=== PATIENT | female | born 1935 | race Two or more races ===

== ENCOUNTER 2016-09-15 22:55 | Emergency (ER) | payer MEDICARE, OTHER ==
[~2016-09-15] VITALS: Ht 167.6 cm; Wt 65.8 kg
[~2016-09-15 22:55] MED LIST: CLON0.5T PO; CLOP75TA2 PO; DEXL60CA3 PO; DILT120C2 PO; FLUT1DIS27 IH; HYDR-4077 PO; MEGE20TA PO
[2016-09-15] MEDS ORDERED: hydrALAZINE HCL 25 MG TABLET PO ONE (23:00)
[2016-09-15] MEDS ORDERED: hydrALAZINE HCL 25 MG TABLET ONE (23:11)
--- NOTE | 2016-09-16 00:25 | NUR ---
Patient discharged to home in stable conditon. Written and verbal after care instructions given. Patient verbalizes understanding of instructions.
[2016-09-16 00:30] VITALS: BP 158/75
== END 2016-09-16 00:25 | disposition home or self-care (01) ==
LOC: ER 22:55
DX: I10 Essential (primary) hypertension (principal); R04.0 Epistaxis; I48.91 Unspecified atrial fibrillation; F41.9 Anxiety disorder, unspecified; K58.9 Irritable bowel syndrome, unspecified
CPT/HCPCS: 99283; A4663 ×2

== ENCOUNTER 2017-02-26 13:59 | Inpatient (IN) | payer MEDICARE, OTHER ==
[~2017-02-26] VITALS: Ht 162.6 cm; Wt 54.4 kg
[~2017-02-26 13:59] MED LIST changes: +CLOP75TA15 PO; -CLOP75TA2 PO
[2017-02-26] MEDS ORDERED: MECL-102 PO (14:19)
[2017-02-26] MEDS ORDERED: GABA-532 PO (14:19)
[2017-02-26] MEDS ORDERED: MONT10TA22 PO (14:19)
[2017-02-26] MEDS ORDERED: HYDR-4077 PO (14:19)
[2017-02-26] MEDS ORDERED: MELO-105 PO (14:19)
[2017-02-26] MEDS ORDERED: IV NORMAL SALINE 1000 ML BAG IV ONE (14:30)
[2017-02-26 14:42] LABS: BASOPHILS % (AUTO) 0.4 % (0.0-2.0); EOSINOPHILS % (AUTO) 0.1 % (0.0-7.0); HEMOGLOBIN 14.8 G/DL (12.0-16.0); LYMPHOCYTES # (AUTO) 0.8 K/UL (0.8-4.8); LYMPHOCYTES % (AUTO) 6.6 % (20.5-51.5); MEAN CORPUSCULAR HEMOGLOBIN 28.3 UUG (27.0-31.0); MEAN CORPUSCULAR HGB CONC 33 g/dL (32.0-37.0); MEAN CORPUSCULAR VOLUME 85.9 FL (81.0-99.0); MONOCYTES # (AUTO) 0.9 K/UL (0.1-1.30); MONOCYTES % (AUTO) 7.8 % (0.0-11.0); NEUTROPHILS # (AUTO) 10.2 K/UL (1.8-8.9); NEUTROPHILS % (AUTO) 85.1 % (38.5-71.5); PLATELET COUNT (AUTO) 252 K/UL (150-450); RED BLOOD CELL COUNT(AUTO) 5.24 MIL/UL (4.2-5.4); WHITE BLOOD COUNT (AUTO) 11.9 K/UL (4.0-11.2)
[2017-02-26 14:50] LABS: CARBON DIOXIDE 21 mmol/L (21-32); CHLORIDE 101 mmol/L (98-107); CREATININE 0.8 mg/dL (0.6-1.3); GLUCOSE 118 mg/dL (74-106); POTASSIUM 3.5 mmol/L (3.5-5.1); UREA NITROGEN, BLOOD 10 mg/dL (7-18)
[2017-02-26 14:59] LABS: ALANINE AMINOTRANSFERASE 17 U/L (14-59); ALKALINE PHOSPHATASE 82 U/L (50-136); ASPARTATE AMINOTRANSFERASE 9 U/L (15-37); BILIRUBIN,DIRECT 0.2 mg/dL (0.0-0.2); BILIRUBIN,TOTAL 0.6 mg/dL (0.2-1.0); LIPASE 83 U/L (73-393); TOTAL PROTEIN, SERUM 7.9 g/dL (6.4-8.2)
--- NOTE | 2017-02-26 15:11 | NUR ---
Patient is resting comfortably in bed with eyes closed. Family is at bedside, no acute change in condition seen, NAD
--- NOTE | 2017-02-26 15:17 | NUR ---
Patient's family wants the patient admitted.
--- NOTE | 2017-02-26 15:39 | NUR ---
Patient ambulated to bathroom with minimal assistance. Per patient, ..."I live alone. I do not have anyone at home." [facility]
--- NOTE | 2017-02-26 15:48 | NUR ---
Clean catch-urine was requested from patient. Patient says that she forgot. We will collect again when the "urge to void" comes back.
[2017-02-26] MEDS ORDERED: ALBU6.7H PO (16:26)
[2017-02-26] MEDS ORDERED: ALBU1.257 INH (16:26)
[2017-02-26] MEDS ORDERED: FLUT1DIS27 PO (16:26)
[2017-02-26 16:43] VITALS: BP 169/62
[2017-02-26] MEDS ORDERED: MORPHINE SULFATE 2 MG/1 ML DISP.SYRIN IV PRN (18:45)
[2017-02-26] MEDS ORDERED: MECLIZINE HCL 25 MG TABLET PO PRN (18:45)
[2017-02-26] MEDS ORDERED: ALBUTEROL SULFATE 2.5 MG/3 ML NEBU NEB PRN (18:45)
[2017-02-26] MEDS ORDERED: ONDANSETRON 4 MG/2 ML VIAL IV PRN (18:45)
[2017-02-26] MEDS: hydrALAZINE HCL 50 MG TABLET PO SCH (18:54)
[2017-02-26] MEDS: CEFTRIAXONE 1 G in IV DEXTROSE 5% 50 ML IV SCH (19:46)
[2017-02-26 20:04] VITALS: BP 164/57
[2017-02-26] MEDS: AZITHROMYCIN IV 500 MG in IV DEXTROSE 5% 250 ML IV SCH (20:11)
--- NOTE | 2017-02-26 20:30 | NUR ---
Patient has temp. of 101.2 F, Dr. Hardin notified. IV antibiotic infusion held temporarily for a blood culture test per MD Assisted to the bathroom & patient voided, urine sample sent to the lab. then IV antibiotic infusion resumed. Cooling measures applied. Placed on library monitor- patient is NSR.
[2017-02-26] MEDS ORDERED: FLUTICASONE/SALMETEROL 100/50 1 INH DISK.W.DEV INH SCH (21:00)
--- NOTE | 2017-02-26 21:00 | NUR ---
Tylenol 650 mg po given.
[2017-02-26] MEDS: ACETAMINOPHEN 325 MG TABLET PO PRN (21:18)
[2017-02-26 22:57] LABS: *BILIRUBIN,URIN NEGATIVE (NEGATIVE); *BLOOD, URINE NEGATIVE (NEGATIVE); *CLARITY,URINE CLEAR (CLEAR); *COLOR,URINE YELLOW (YELLOW); *KETONES,URINE TRACE (NEGATIVE); *PROTEIN,URINE NEGATIVE (NEGATIVE); LEUKOCYTE ESTERASE ,URINE NEGATIVE (NEGATIVE); NITRITE, URINE NEGATIVE (NEGATIVE); UGLUCOSE NEGATIVE (NEGATIVE)
[2017-02-26 23:03] LABS: BACTERIA,URINE FEW /HPF (NONE SEEN); RBC,URINE 0-3 /HPF (0-3); SQUAMOUS EPITHELIAL CELL,UR FEW /HPF (NONE SEEN); WBC,URINE NONE SEEN /HPF (0-3)
[2017-02-27 00:27] VITALS: BP 137/43
--- NOTE | 2017-02-27 00:30 | NUR ---
Patient asleep, afebrile at this time.
[2017-02-27] MEDS ORDERED: FUROSEMIDE 40 MG/4 ML VIAL IV SCH (03:00)
[2017-02-27 04:00] VITALS: BP 147/45
[2017-02-27] MEDS: ACETAMINOPHEN 325 MG TABLET PO PRN (05:43)
[2017-02-27] MEDS: PANTOPRAZOLE SODIUM 40 MG TABLET.DR PO SCH (05:43)
--- NOTE | 2017-02-27 06:41 | NUR ---
Patient tolerated IV antibiotics, slightly febrile 99.3 F. Tylenol 650 mg po given, Ice pack provided. Tele NSR, no acute resp. distress.
[2017-02-27 07:40] LABS: BASOPHILS % (AUTO) 0.3 % (0.0-2.0); EOSINOPHILS # (AUTO) 0.1 K/uL (0.0-0.7); EOSINOPHILS % (AUTO) 1.1 % (0.0-7.0); HEMATOCRIT 39.8 % (37-47); HEMOGLOBIN 13.4 G/DL (12.0-16.0); LYMPHOCYTES # (AUTO) 1.2 K/UL (0.8-4.8); LYMPHOCYTES % (AUTO) 10.8 % (20.5-51.5); MEAN CORPUSCULAR HEMOGLOBIN 28.8 UUG (27.0-31.0); MEAN CORPUSCULAR HGB CONC 34 g/dL (32.0-37.0); MEAN CORPUSCULAR VOLUME 85.5 FL (81.0-99.0); MONOCYTES # (AUTO) 1.2 K/UL (0.1-1.30); MONOCYTES % (AUTO) 10.4 % (0.0-11.0); NEUTROPHILS # (AUTO) 8.7 K/UL (1.8-8.9); NEUTROPHILS % (AUTO) 77.4 % (38.5-71.5); PLATELET COUNT (AUTO) 228 K/UL (150-450); RED BLOOD CELL COUNT(AUTO) 4.66 MIL/UL (4.2-5.4); WHITE BLOOD COUNT (AUTO) 11.2 K/UL (4.0-11.2)
[2017-02-27] MEDS: GABAPENTIN 100 MG CAPSULE PO SCH ×2 (08:18→16:34)
[2017-02-27] MEDS: DILTIAZEM HCL CD 120 MG CAP.SR.24H PO SCH (08:19)
[2017-02-27] MEDS: MONTELUKAST SODIUM 10 MG TABLET PO SCH (08:19)
[2017-02-27] MEDS: MELOXICAM 7.5 MG TABLET PO SCH (08:19)
[2017-02-27] MEDS: MEGESTROL ACETATE 20 MG TABLET PO SCH ×2 (08:19→17:00)
[2017-02-27] MEDS: CLOPIDOGREL 75 MG TABLET PO SCH (08:19)
[2017-02-27] MEDS: hydrALAZINE HCL 50 MG TABLET PO SCH ×3 (08:20→16:36)
[2017-02-27] MEDS: FLUTICASONE/VILANTEROL 1 EACH BLST.W.DEV INH SCH (09:00)
[2017-02-27 09:08] LABS: THYROID STIMULATING HORMONE 1.393 mIU/mL (0.358-3.740)
[2017-02-27 09:28] LABS: ALANINE AMINOTRANSFERASE 14 U/L (14-59); ALKALINE PHOSPHATASE 66 U/L (50-136); ASPARTATE AMINOTRANSFERASE 13 U/L (15-37); BILIRUBIN,TOTAL 0.5 mg/dL (0.2-1.0); CARBON DIOXIDE 24 mmol/L (21-32); CHLORIDE 104 mmol/L (98-107); CHOLESTEROL 123 mg/dL (<200); CREATININE 0.8 mg/dL (0.6-1.3); GLUCOSE 97 mg/dL (74-106); HDL CHOLESTEROL 40 mg/dL (40-60); MAGNESIUM 1.9 mg/dL (1.8-2.4); POTASSIUM 3.3 mmol/L (3.5-5.1); TOTAL PROTEIN, SERUM 6.6 g/dL (6.4-8.2); TRIGLYCERIDES 54 MG/DL (30-150); UREA NITROGEN, BLOOD 8 mg/dL (7-18)
[2017-02-27] MEDS ORDERED: POTASSIUM CHLORIDE 20 MEQ TAB.PRT.SR PO ONE (10:00)
[2017-02-27 11:41] VITALS: BP 148/49
--- NOTE | 2017-02-27 12:23 | NUR ---
pt seen on rounding. pt is afebrile. pt has high blood pressure. pt is awake and alert. no loc changes. chest xray shows she has diffuse interstitial lung disease. pt is on monitor sinus rhythm running on the 70s. family states that she has history of anorexia as stated by the family. pt had a potassium of 3.3. pt given 40 meq of potassium. will continue to monitor for signs of fever.
[2017-02-27 13:03] LABS: BAND % (MANUAL) 12 % (0-10); EOSINOPHILS % (MANUAL) 1 % (0-8); LYMPHOCYTES % (MANUAL) 11 % (20-40); MONOCYTES % (MANUAL) 12 % (2-10); NEUTROPHILS % (MANUAL) 64 % (42-75)
--- NOTE | 2017-02-27 15:14 | NUR ---
pt not given breo because pharmacy has no supply of breo. [facility] pharmacy is aware. will follow up
[2017-02-27 15:15] VITALS: BP 132/55
--- NOTE | 2017-02-27 19:10 | NUR ---
pt stable thorughout the day. bp slightly elevated but temperature wnl. pt voided and had bm. family states tht pt has past history of anorexia and may need psych consult. no new injuries. will endorse to overnight associate nurse.
[2017-02-27] MEDS: CEFTRIAXONE 1 G in IV DEXTROSE 5% 50 ML IV SCH (19:57)
[2017-02-27 20:00] VITALS: BP 154/49
--- NOTE | 2017-02-27 20:00 | NUR ---
Noted to have slight elevated Temp. of 99.9'F. Non-pharmacological interventions provided.
[2017-02-27] MEDS ORDERED: ZOLPIDEM 5 MG TABLET PO SCH (21:00)
--- NOTE | 2017-02-27 21:00 | NUR ---
Noted temp. of 99.3'F. Will continue to monitor the patient.
[2017-02-27] MEDS: AZITHROMYCIN IV 500 MG in IV DEXTROSE 5% 250 ML IV SCH (22:36)
[2017-02-28] VITALS: BP 145/54
[2017-02-28 04:00] VITALS: BP 164/59
[2017-02-28] MEDS: hydrALAZINE HCL 25 MG TABLET PO PRN ×2 (04:52→18:15)
[2017-02-28] MEDS: PANTOPRAZOLE SODIUM 40 MG TABLET.DR PO SCH (06:17)
--- NOTE | 2017-02-28 06:46 | NUR ---
Vital signs checked noted to have elevated BP 164/59. Hydralazine given, BP rechecked 149/50. Will continue to monitor.
--- NOTE | 2017-02-28 07:10 | NUR ---
Pt report received at bedside. Pt reports sleeping comfortably last night. White board updated. No distress or pain noted at this time. All safety and comfort measures implemented. Will continue to monitor.
[2017-02-28] MEDS: MELOXICAM 7.5 MG TABLET PO SCH (08:52)
[2017-02-28] MEDS: MONTELUKAST SODIUM 10 MG TABLET PO SCH (08:52)
[2017-02-28] MEDS: GABAPENTIN 100 MG CAPSULE PO SCH ×2 (08:52→16:50)
[2017-02-28] MEDS: CLOPIDOGREL 75 MG TABLET PO SCH (08:52)
[2017-02-28] MEDS: MEGESTROL ACETATE 20 MG TABLET PO SCH ×2 (08:53→16:50)
[2017-02-28] MEDS: hydrALAZINE HCL 50 MG TABLET PO SCH ×3 (08:53→16:50)
[2017-02-28] MEDS: DILTIAZEM HCL CD 120 MG CAP.SR.24H PO SCH (08:54)
[2017-02-28] MEDS: FLUTICASONE/VILANTEROL 1 EACH BLST.W.DEV INH SCH (08:57)
--- NOTE | 2017-02-28 09:07 | NUR ---
Pt sitting comfortably in bed, stating finished with breakfast. Pt compliant with all routine morning medication administration. [facility] Tech arrived to transfer Pt down for CT head scan with contrast as ordered. Stable SR checked, Pt sent down with monitor at this time.
[2017-02-28 11:21] VITALS: BP 155/52
[2017-02-28 15:37] VITALS: BP 112/70
--- NOTE | 2017-02-28 18:06 | NUR ---
Pt sitting comfortably in bed. Pt has been compliant with all routine medication administrations. V/S stable, Pt denies any c/o pain or difficulty breathing/SOB at this time. No distress noted. Call light within reach, and all comfort measures met. Will continue to monitor progress and endorse maintenance technician 2nd shift.
--- NOTE | 2017-02-28 18:18 | NUR ---
Pt reassessed, V/S taken to be 159/61, 72 pulse. Blood pressure medication, Apresolin administered as ordered PRN. Will endorse to manufacturing shift supervisor and continue to monitor Pt status.
[2017-02-28] MEDS: CEFTRIAXONE 1 G in IV DEXTROSE 5% 50 ML IV SCH (20:02)
[2017-02-28 20:21] VITALS: BP 152/52
[2017-02-28] MEDS: AZITHROMYCIN IV 500 MG in IV DEXTROSE 5% 250 ML IV SCH (20:35)
--- NOTE | 2017-02-28 22:45 | NUR ---
PATIENT REQUESTED FOR CLONAZEPAM 0.5MG, STATED SHE HAS BEEN TAKING IT FORM 25 YEARS BEFORE BEDTIME. DAUGHTER AT BEDSIDE. MD NOTIFIED.
--- NOTE | 2017-02-28 23:00 | NUR ---
RECEIVED DR. COOK'S ORDER TO RE START CLONAZEPAM 0.5MG HS PO. NEW ORDERS RECEIVED, READ BACK, CARRIED OUT.
[2017-02-28] MEDS: CLONAZEPAM 0.5 MG TABLET PO SCH (23:13)
[2017-02-28] MEDS ORDERED: CLONAZEPAM 0.5 MG TABLET ONE (23:25)
[2017-03-01 00:01] VITALS: BP 182/67
--- NOTE | 2017-03-01 00:55 | NUR ---
PT NOTED TO HAVE ELEVATED BP 182/67 HR 75. PT IS ALERT, IN NO ACUTE DISTRESS, NO C/O OF CHEST PAIN, SOB, HEADACHE.
[2017-03-01] MEDS: hydrALAZINE HCL 25 MG TABLET PO PRN (01:06)
--- NOTE | 2017-03-01 01:10 | NUR ---
ADMINISTERED APRESOLINE 25MG PRN FOR ELEVATED BP. WILL CONTINUE TO MONITOR.
--- NOTE | 2017-03-01 03:00 | NUR ---
REASSESED PT'S BP 165/65 HR 70. PT IS ALERT, IN NO ACUTE DISTRESS, NO C/O OF CHEST PAIN. WILL CONTINUE TO MONITOR.
[2017-03-01 04:00] VITALS: BP 155/56
--- NOTE | 2017-03-01 06:00 | NUR ---
PT SLEPT INTERMITTENTLY, IN NO ACUTE DISTRESS. PT IS ANXIOUS, WORRIED ABOUT HER 2 CHILDREN. PT IS ON TELE SR, NO C/O OF CHEST PAIN OR SOB. IV ANTIBIOTIC ADMINISTERED ORDERED, NO ADVERSE REACTION NOTED. ASSISTED WITH TOILETING NEEDS. BED ALARM ON, CALL LIGHT WITHIN REACH. WILL CONTINUE TO MONITOR.
--- NOTE | 2017-03-01 06:00 | NUR ---
PT'S BP DOWN TO 155/56 HR 68. PT IS IN NO ACUTE DISTRESS. WILL CONTINUE TO MONITOR. WILL ENDORSE TO ONCOMING SHIFT REGARDING PT'S BP READINGS.
[2017-03-01] MEDS: PANTOPRAZOLE SODIUM 40 MG TABLET.DR PO SCH (06:37)
[2017-03-01 06:56] LABS: BASOPHILS # (AUTO) 0.1 K/uL (0.0-8.0); BASOPHILS % (AUTO) 0.8 % (0.0-2.0); EOSINOPHILS # (AUTO) 0.3 K/uL (0.0-0.7); EOSINOPHILS % (AUTO) 3.4 % (0.0-7.0); HEMOGLOBIN 13.1 g/dL (10.9-14.3); LYMPHOCYTES # (AUTO) 1.7 K/uL (20.0-40.0); LYMPHOCYTES % (AUTO) 19.2 % (20.5-51.5); MEAN CORPUSCULAR HEMOGLOBIN 29.6 uug (24.7-32.8); MEAN CORPUSCULAR HGB CONC 34 g/dL (32.3-35.6); MEAN CORPUSCULAR VOLUME 86.1 fL (75.5-95.3); MONOCYTES # (AUTO) 0.9 K/uL (2.0-10.0); MONOCYTES % (AUTO) 10.4 % (0.0-11.0); NEUTROPHILS # (AUTO) 5.7 K/uL (1.8-8.9); NEUTROPHILS % (AUTO) 66.2 % (38.5-71.5); PLATELET COUNT (AUTO) 258 K/uL (179-408); RED BLOOD CELL COUNT(AUTO) 4.41 MIL/uL (3.63-4.92); WHITE BLOOD COUNT (AUTO) 8.6 K/uL (3.8-11.8)
[2017-03-01 07:28] LABS: ALANINE AMINOTRANSFERASE 13 U/L (14-59); ALKALINE PHOSPHATASE 68 U/L (50-136); ASPARTATE AMINOTRANSFERASE 13 U/L (15-37); BILIRUBIN,TOTAL 0.2 mg/dL (0.2-1.0); CARBON DIOXIDE 25 mmol/L (21-32); CHLORIDE 104 mmol/L (98-107); CREATININE 0.8 mg/dL (0.6-1.3); GLUCOSE 98 mg/dL (74-106); MAGNESIUM 1.9 mg/dL (1.8-2.4); PHOSPHOROUS 3.7 mg/dL (2.5-4.9); POTASSIUM 3.5 mmol/L (3.5-5.1); TOTAL PROTEIN, SERUM 6.7 g/dL (6.4-8.2); UREA NITROGEN, BLOOD 17 mg/dL (7-18)
--- NOTE | 2017-03-01 08:00 | NUR ---
Awake, alert, oriented x 4. On moderate high back rest. Room air with O2 sat of 97%, no SOB noted. Anxious, discussed plan of care, reassured
[2017-03-01 09:52] LABS: ABG BASE EXCESS -0.4 mmol/L; ABG HCO3 22.2 mmol/L; ABG PCO2 30.6 mmHg (35.0-45.0); ABG PH 7.479 (7.350-7.450); ABG PO2 83.2 mmHg (75.0-100.0); ABG SITE RIGHT RADIAL; ABG TOTAL HEMOGLOBIN 13.2 G/dL (12.0-16.0); COHb 0.7 % (0.5-1.5); MetHb 0.3 % (0.0-1.5); O2Hb 95.9 % (94.0-97.0)
[2017-03-01] MEDS: CLOPIDOGREL 75 MG TABLET PO SCH (10:02)
[2017-03-01] MEDS: MEGESTROL ACETATE 20 MG TABLET PO SCH ×2 (10:02→17:12)
[2017-03-01] MEDS: MELOXICAM 7.5 MG TABLET PO SCH (10:02)
[2017-03-01] MEDS: GABAPENTIN 100 MG CAPSULE PO SCH ×2 (10:02→17:13)
[2017-03-01] MEDS: MONTELUKAST SODIUM 10 MG TABLET PO SCH (10:02)
[2017-03-01] MEDS: FLUTICASONE/VILANTEROL 1 EACH BLST.W.DEV INH SCH (10:02)
[2017-03-01] MEDS: DILTIAZEM HCL CD 120 MG CAP.SR.24H PO SCH (10:03)
[2017-03-01] MEDS: hydrALAZINE HCL 50 MG TABLET PO SCH ×3 (10:04→17:12)
[2017-03-01 11:14] VITALS: BP 171/60
--- NOTE | 2017-03-01 13:00 | NUR ---
Still with elevated BP, due Hydralazine po given
[2017-03-01 15:12] VITALS: BP 153/60
--- NOTE | 2017-03-01 18:37 | NUR ---
Kept comfortable, not in distress
[2017-03-01] MEDS: CEFTRIAXONE 1 G in IV DEXTROSE 5% 50 ML IV SCH (18:49)
[2017-03-01 20:00] VITALS: BP 147/53
[2017-03-01] MEDS: AZITHROMYCIN IV 500 MG in IV DEXTROSE 5% 250 ML IV SCH (20:22)
[2017-03-01] MEDS: CLONAZEPAM 0.5 MG TABLET PO SCH (20:22)
--- NOTE | 2017-03-01 21:45 | NUR ---
SPOKE WITH ROBERT FROM MENTAL HEALTH, FOLLOW UP REGARDING PATIENT'S PSYCH EVAL FOR ANOREXIA AND DEPRESSION. MENTAL HEALTH TO NOTIFY MD. WILL FOLLOW UP.
[2017-03-02 04:55] VITALS: BP 135/50
[2017-03-02] MEDS: PANTOPRAZOLE SODIUM 40 MG TABLET.DR PO SCH (06:01)
[2017-03-02 06:30] LABS: BASOPHILS # (AUTO) 0.1 K/uL (0.0-8.0); BASOPHILS % (AUTO) 0.8 % (0.0-2.0); EOSINOPHILS # (AUTO) 0.3 K/uL (0.0-0.7); EOSINOPHILS % (AUTO) 4.4 % (0.0-7.0); HEMATOCRIT 38.1 % (31.2-41.9); HEMOGLOBIN 13.2 g/dL (10.9-14.3); LYMPHOCYTES # (AUTO) 1.6 K/uL (20.0-40.0); LYMPHOCYTES % (AUTO) 24.2 % (20.5-51.5); MEAN CORPUSCULAR HEMOGLOBIN 29.6 uug (24.7-32.8); MEAN CORPUSCULAR HGB CONC 35 g/dL (32.3-35.6); MEAN CORPUSCULAR VOLUME 85.7 fL (75.5-95.3); MONOCYTES # (AUTO) 0.7 K/uL (2.0-10.0); MONOCYTES % (AUTO) 10.9 % (0.0-11.0); NEUTROPHILS % (AUTO) 59.7 % (38.5-71.5); PLATELET COUNT (AUTO) 274 K/uL (179-408); RED BLOOD CELL COUNT(AUTO) 4.45 MIL/uL (3.63-4.92); WHITE BLOOD COUNT (AUTO) 6.8 K/uL (3.8-11.8)
--- NOTE | 2017-03-02 06:30 | NUR ---
PT SLEPT INTERMITTENTLY. VS STABLE, NO SIGNIFICANT CHANGE OF CONDITION THROUGHOUT THE SHIFT. WILL ENDORSE TO ONCOMING SHIFT RN REGARDING F/U PSYCH EVAL.
[2017-03-02 07:01] LABS: CHLORIDE 104 mmol/L (98-107); CREATININE 0.8 mg/dL (0.6-1.3); GLUCOSE 103 mg/dL (74-106); PHOSPHOROUS 3.8 mg/dL (2.5-4.9); POTASSIUM 3.6 mmol/L (3.5-5.1); UREA NITROGEN, BLOOD 15 mg/dL (7-18)
--- NOTE | 2017-03-02 07:30 | NUR ---
PT received in bed Awake, alert, oriented x 4. Room air with O2 sat of 97%, no SOB noted. Anxious, discussed plan of care, reassured call light with in reach
[2017-03-02] MEDS: MELOXICAM 7.5 MG TABLET PO SCH (08:27)
[2017-03-02] MEDS: CLOPIDOGREL 75 MG TABLET PO SCH (08:27)
[2017-03-02] MEDS: MEGESTROL ACETATE 20 MG TABLET PO SCH ×2 (08:27→18:17)
[2017-03-02] MEDS: MONTELUKAST SODIUM 10 MG TABLET PO SCH (08:27)
[2017-03-02] MEDS: GABAPENTIN 100 MG CAPSULE PO SCH ×2 (08:27→18:17)
[2017-03-02] MEDS: hydrALAZINE HCL 50 MG TABLET PO SCH ×3 (08:27→18:18)
[2017-03-02] MEDS: FLUTICASONE/VILANTEROL 1 EACH BLST.W.DEV INH SCH (08:28)
[2017-03-02] MEDS: DILTIAZEM HCL CD 120 MG CAP.SR.24H PO SCH (08:28)
--- NOTE | 2017-03-02 09:45 | NUR ---
took over care, resting in bed, denies of pain, safety measures maintained, call light within reach
[2017-03-02 11:05] VITALS: BP 147/48
--- NOTE | 2017-03-02 12:00 | NUR ---
quiet but holds conversation when talked to, needs attended, call light within reach
[2017-03-02 15:09] VITALS: BP 135/54
[2017-03-02] MEDS: CEFTRIAXONE 1 G in IV DEXTROSE 5% 50 ML IV SCH (18:17)
--- NOTE | 2017-03-02 18:45 | NUR ---
s Addendum: 03/02/17 at 1851 by JOHN PADRON RN sitter in the room, all needs attended and met Addendum: 03/02/17 at 1852 by JOHN PADRON RN error- wrong entry
--- NOTE | 2017-03-02 18:46 | NUR ---
resting in bed, denies of pain, all needs attended and met, call light within reach
[2017-03-02 20:00] VITALS: BP 142/51
[2017-03-02] MEDS ORDERED: AZITHROMYCIN 250 MG TABLET PO SCH (20:00)
--- NOTE | 2017-03-02 20:00 | NUR ---
Received pt on bed awake, alert and oriented x4. Able to make needs known. Pleasant, calm and cooperative to care. No acute distress noted. No complaints of pain or discomfort at this time. Breathing even and unlabored with normal respirations. Call light within reach. All needs attended. Will continue to monitor.
[2017-03-02] MEDS: CLONAZEPAM 0.5 MG TABLET PO SCH (20:26)
[2017-03-03 05:24] VITALS: BP 132/54
--- NOTE | 2017-03-03 05:50 | NUR ---
Pt slept comfortably throughout the shift. No s/s of distress. Denies pain. No SOB noted. Vital signs stable. All needs attended.
[2017-03-03] MEDS: PANTOPRAZOLE SODIUM 40 MG TABLET.DR PO SCH (06:07)
--- NOTE | 2017-03-03 08:00 | NUR ---
awake alert and oriented, denies of pain, explained plan of care- informed of plan to ARU- states "ok but no half-way", expressed dislike of being in a jail facility. safety measures maintained, call light within reach, needs attended
[2017-03-03] MEDS: hydrALAZINE HCL 50 MG TABLET PO SCH ×3 (08:16→17:12)
[2017-03-03] MEDS: GABAPENTIN 100 MG CAPSULE PO SCH ×2 (08:17→17:12)
[2017-03-03] MEDS: MELOXICAM 7.5 MG TABLET PO SCH (08:17)
[2017-03-03] MEDS: MEGESTROL ACETATE 20 MG TABLET PO SCH ×2 (08:17→17:12)
[2017-03-03] MEDS: DILTIAZEM HCL CD 120 MG CAP.SR.24H PO SCH (08:17)
[2017-03-03] MEDS: CLOPIDOGREL 75 MG TABLET PO SCH (08:17)
[2017-03-03] MEDS: MONTELUKAST SODIUM 10 MG TABLET PO SCH (08:17)
[2017-03-03] MEDS: FLUTICASONE/VILANTEROL 1 EACH BLST.W.DEV INH SCH (08:18)
[2017-03-03 11:02] VITALS: BP 139/52
--- NOTE | 2017-03-03 12:00 | NUR ---
ambulates to [facility] standby assitance- tolerating well, denies of pain.
[2017-03-03 15:10] VITALS: BP 162/52
--- NOTE | 2017-03-03 15:30 | NUR ---
informed case management that pt doesn't want to go to [facility] facility- would rather go home if not going to ARU
[2017-03-03 17:12] VITALS: BP 142/52
--- NOTE | 2017-03-03 17:47 | NUR ---
seen by Dr Murrell-spoke to pt at length
[2017-03-03] MEDS: CEFTRIAXONE 1 G in IV DEXTROSE 5% 50 ML IV SCH (18:17)
--- NOTE | 2017-03-03 18:47 | NUR ---
Dr Hardin spoke to daughter- pt to be d/c to [facility]
[2017-03-03] MEDS ORDERED: ALBU2.5V7 NEB (19:30)
[2017-03-03] MEDS ORDERED: ACET325T53 PO (19:30)
[2017-03-03] MEDS ORDERED: MIRT15TA PO (19:30)
[2017-03-03] MEDS ORDERED: CLON0.5T4 PO (19:30)
[2017-03-03] MEDS ORDERED: ACID1TAB4 PO (19:30)
[2017-03-03] MEDS ORDERED: MULT1TAB73 PO (19:30)
[2017-03-03] MEDS ORDERED: LEVO500T2 PO (19:30)
[2017-03-03] MEDS ORDERED: PANT40TA2 PO (19:30)
[2017-03-03] MEDS ORDERED: MONT10TA22 PO (19:30)
--- NOTE | 2017-03-03 20:04 | NUR ---
Patient discharged to [facility]. Patient in stable condition. No signs/symptoms of distress. IV DCed. Discharge papers signed by patient. ID band taken off of patient. No falls noted.
== END 2017-03-03 20:24 | DRG 871 ==
LOC: ER 14:02 → TELE 16:11 → MED 03-01 11:22
PROVIDERS: ADMIT Internal Medicine; ATTEND Internal Medicine
DX: A41.9 Sepsis, unspecified organism (principal); J18.0 Bronchopneumonia, unspecified organism; E44.0 Moderate protein-calorie malnutrition; J91.8 Pleural effusion in other conditions classified elsewhere; D68.59 Other primary thrombophilia; J21.9 Acute bronchiolitis, unspecified; H66.93 Otitis media, unspecified, bilateral; A48.8 Other specified bacterial diseases; H70.13 Chronic mastoiditis, bilateral; I48.0 Paroxysmal atrial fibrillation; E78.5 Hyperlipidemia, unspecified; K58.9 Irritable bowel syndrome, unspecified; I10 Essential (primary) hypertension; F32.9 Major depressive disorder, single episode, unspecified; Z68.20 Body mass index [BMI] 20.0-20.9, adult; F41.9 Anxiety disorder, unspecified; Z74.09 Other reduced mobility; Z79.02 Long term (current) use of antithrombotics/antiplatelets; Z79.51 Long term (current) use of inhaled steroids; Z88.8 Allergy status to other drugs, medicaments and biological substances; Z91.09 Other allergy status, other than to drugs and biological substances; Z91.81 History of falling; J45.909 Unspecified asthma, uncomplicated; E87.6 Hypokalemia; H66.90 Otitis media, unspecified, unspecified ear
CPT/HCPCS: 36415; 36600; 70030-TC; 70450; 71010; 71250; 83690; 83735; 84100; 84443; 85025; 87040; 87086; 93005; 93307; 97110; 97116; 97530; A4663; J0456; J0696; J2270; J7030; J7050; J7060; J8597; Q0144

== ENCOUNTER 2017-03-15 15:56 | Inpatient (IN) | payer MEDICARE, OTHER ==
[~2017-03-15] VITALS: Ht 165.1 cm; Wt 58.7 kg
[~2017-03-15 15:56] MED LIST changes: +ACET325T53 PO; +ACID1TAB4 PO; +ALBU2.5V7 NEB; -CLON0.5T PO; +CLON0.5T4 PO; -DEXL60CA3 PO; -FLUT1DIS27 IH; +FLUT1DIS27 PO; +GABA-532 PO; +LEVO500T2 PO; +MECL-102 PO; +MELO-105 PO; +MIRT15TA PO; +MONT10TA22 PO; +MULT1TAB73 PO; +PANT40TA2 PO
--- NOTE | 2017-03-15 16:03 | NUR ---
DR MONZON AT THE BEDSIDE FOR EVAL AND EXAM.
[2017-03-15] MEDS ORDERED: ONDANSETRON 4 MG/2 ML VIAL IV ONE (16:15)
[2017-03-15] MEDS ORDERED: IV NORMAL SALINE 1000 ML BAG IV ONE (16:15)
--- NOTE | 2017-03-15 16:25 | NUR ---
Pt refused F/C, MD aware.
[2017-03-15 16:28] LABS: BASOPHILS # (AUTO) 0.1 K/uL (0.0-8.0); BASOPHILS % (AUTO) 0.6 % (0.0-2.0); EOSINOPHILS % (AUTO) 0.2 % (0.0-7.0); HEMOGLOBIN 13.1 G/DL (12.0-16.0); LYMPHOCYTES % (AUTO) 6.6 % (20.5-51.5); MEAN CORPUSCULAR HEMOGLOBIN 27.2 UUG (27.0-31.0); MEAN CORPUSCULAR HGB CONC 32 g/dL (32.0-37.0); MEAN CORPUSCULAR VOLUME 85.4 FL (81.0-99.0); MONOCYTES # (AUTO) 0.7 K/UL (0.1-1.30); MONOCYTES % (AUTO) 4.3 % (0.0-11.0); NEUTROPHILS # (AUTO) 14.1 K/UL (1.8-8.9); NEUTROPHILS % (AUTO) 88.3 % (38.5-71.5); PLATELET COUNT (AUTO) 336 K/UL (150-450); WHITE BLOOD COUNT (AUTO) 15.9 K/UL (4.0-11.2)
[2017-03-15 16:29] LABS: CARBON DIOXIDE 22 mmol/L (21-32); CHLORIDE 102 mmol/L (98-107); CREATININE 0.9 mg/dL (0.6-1.3); GLUCOSE 106 mg/dL (74-106); POTASSIUM 3.9 mmol/L (3.5-5.1); UREA NITROGEN, BLOOD 12 mg/dL (7-18)
[2017-03-15] MEDS ORDERED: ONDANSETRON 4 MG/2 ML VIAL ONE (16:30)
[2017-03-15 16:34] LABS: ALANINE AMINOTRANSFERASE 20 U/L (14-59); ALKALINE PHOSPHATASE 78 U/L (50-136); ASPARTATE AMINOTRANSFERASE 16 U/L (15-37); BILIRUBIN,DIRECT 0.1 mg/dL (0.0-0.2); BILIRUBIN,TOTAL 0.4 mg/dL (0.2-1.0); LIPASE 110 U/L (73-393); TOTAL PROTEIN, SERUM 7.4 g/dL (6.4-8.2)
[2017-03-15 16:36] LABS: *BILIRUBIN,URIN NEGATIVE (NEGATIVE); *BLOOD, URINE NEGATIVE (NEGATIVE); *COLOR,URINE YELLOW (YELLOW); *KETONES,URINE NEGATIVE (NEGATIVE); *PROTEIN,URINE NEGATIVE (NEGATIVE); *UROBILINOGEN,URINE 0.2 E.U./dl (NORMAL); LEUKOCYTE ESTERASE ,URINE TRACE (NEGATIVE); NITRITE, URINE NEGATIVE (NEGATIVE); PH,URINE 5.5 (5.0-8.0); UGLUCOSE NEGATIVE (NEGATIVE)
[2017-03-15 16:42] LABS: *CLARITY,URINE HAZY (CLEAR)
[2017-03-15 16:43] LABS: BACTERIA,URINE FEW /HPF (NONE SEEN); RBC,URINE 0-3 /HPF (0-3); SQUAMOUS EPITHELIAL CELL,UR FEW /HPF (NONE SEEN); WBC,URINE 0-3 /HPF (0-3)
[2017-03-15 16:44] LABS: MUCUS,URINE MODERATE /LPF (0-FEW)
[2017-03-15] MEDS ORDERED: METRONIDAZOLE 500 MG/NS 100ML 100 ML IV ONE ×2 (16:45→17:08)
[2017-03-15] MEDS ORDERED: LEVOFLOXACIN 750MG/D5W 150 ML IV ONE ×2 (16:45→17:09)
[2017-03-15 16:55] LABS: BAND % (MANUAL) 10 % (0-10); NEUTROPHILS % (MANUAL) 81 % (42-75)
[2017-03-15 16:56] LABS: LYMPHOCYTES % (MANUAL) 5 % (20-40); MONOCYTES % (MANUAL) 4 % (2-10)
--- NOTE | 2017-03-15 17:06 | NUR ---
Pt out of ER for CT.
--- NOTE | 2017-03-15 18:00 | NUR ---
Pt had several watery stool while in the ER, denies nausea/vomiiting.
--- NOTE | 2017-03-15 18:35 | NUR ---
RECEIVED PATIENT BY [facility] FROM THE ED WITH DX OF DEHYDRATION AND ABDOMINAL PAIN PLACED INTO BED FIXED AND MADE COMFORTABLE.PATIENT HAS HER IV FLAGYL IN PROGRESS AT THIS TIME TO HER RIGHT FOREARM WITH NO S/S OF INFILTERATION ON SITE.PATIENT IS ALERT AND ORIENTED DENIES DISCOMFORTS AT THIS TIME BUT STATED THAT SHE FEELS COLD BUT IS AFEBRILE.PLACED ON TELEMETRY ON ROOM AIR WITH NO SHORTNESS OF BREATH.NOTED TO BE INCONTINENT OF BLADDER AND BOWEL LAST CARE MADE COMFORTABLE ORIENTED TO ROOM AND HOSPITAL PROTOCOL WILL PAGE DR STEELE FOR ADMISSION ORDERS.ENDORSED THE ADMISSION OF THIS PATIENT TO THE ONCOMING NURSE.
[2017-03-15 18:42] VITALS: BP 135/48
[2017-03-15] MEDS ORDERED: MECLIZINE HCL 25 MG TABLET PO PRN (19:30)
[2017-03-15] MEDS ORDERED: ALBUTEROL SULFATE 2.5 MG/3 ML NEBU NEB PRN (19:30)
[2017-03-15] MEDS ORDERED: ONDANSETRON 4 MG/2 ML VIAL IV PRN (19:45)
[2017-03-15] MEDS ORDERED: MORPHINE SULFATE 2 MG/1 ML DISP.SYRIN IV PRN (19:45)
[2017-03-15 20:00] VITALS: BP 137/51
[2017-03-15] MEDS: CLONAZEPAM 0.5 MG TABLET PO SCH (20:41)
[2017-03-15] MEDS: GABAPENTIN 100 MG CAPSULE PO SCH (20:41)
[2017-03-15] MEDS: hydrALAZINE HCL 50 MG TABLET PO SCH (20:42)
[2017-03-15] MEDS ORDERED: FLUTICASONE/SALMETEROL 100/50 1 INH DISK.W.DEV IH SCH (21:00)
[2017-03-15] MEDS ORDERED: MIRTAZAPINE 15 MG TABLET PO SCH (21:00)
[2017-03-15 23:52] VITALS: BP 133/41
[2017-03-16 04:00] VITALS: BP 124/45
[2017-03-16] MEDS: ACETAMINOPHEN 325 MG TABLET PO PRN (05:52)
[2017-03-16] MEDS: PANTOPRAZOLE SODIUM 40 MG TABLET.DR PO SCH (06:00)
--- NOTE | 2017-03-16 06:30 | NUR ---
PT SLEPT WELL, IN NO ACUTE DISTRESS. VS STABLE, PT IS AFEBRILE. PT KEPT CLEAN/DRY. PT IS ON TELE SINUS RHYTHM, 1 OCCURENCE OF ATRIAL TACH. CALL LIGHT WITHIN REACH, BED ALARM ON. WILL CONTINUE TO MONITOR.
[2017-03-16 06:50] LABS: ALANINE AMINOTRANSFERASE 19 U/L (14-59); ALKALINE PHOSPHATASE 72 U/L (50-136); ASPARTATE AMINOTRANSFERASE 14 U/L (15-37); BILIRUBIN,TOTAL 0.7 mg/dL (0.2-1.0); CARBON DIOXIDE 23 mmol/L (21-32); CHLORIDE 107 mmol/L (98-107); GLUCOSE 90 mg/dL (74-106); PHOSPHOROUS 3.4 mg/dL (2.5-4.9); POTASSIUM 4.2 mmol/L (3.5-5.1); TOTAL PROTEIN, SERUM 6.3 g/dL (6.4-8.2); UREA NITROGEN, BLOOD 11 mg/dL (7-18)
[2017-03-16 06:56] LABS: BASOPHILS % (AUTO) 0.5 % (0.0-2.0); EOSINOPHILS # (AUTO) 0.1 K/uL (0.0-0.7); EOSINOPHILS % (AUTO) 1.2 % (0.0-7.0); HEMATOCRIT 37.2 % (37-47); HEMOGLOBIN 12.4 G/DL (12.0-16.0); LYMPHOCYTES # (AUTO) 1.1 K/UL (0.8-4.8); MEAN CORPUSCULAR HEMOGLOBIN 28.6 UUG (27.0-31.0); MEAN CORPUSCULAR HGB CONC 34 g/dL (32.0-37.0); MEAN CORPUSCULAR VOLUME 85.3 FL (81.0-99.0); MONOCYTES # (AUTO) 0.7 K/UL (0.1-1.30); MONOCYTES % (AUTO) 7.4 % (0.0-11.0); NEUTROPHILS # (AUTO) 7.8 K/UL (1.8-8.9); NEUTROPHILS % (AUTO) 79.9 % (38.5-71.5); PLATELET COUNT (AUTO) 319 K/UL (150-450); RED BLOOD CELL COUNT(AUTO) 4.36 MIL/UL (4.2-5.4); WHITE BLOOD COUNT (AUTO) 9.7 K/UL (4.0-11.2)
--- NOTE | 2017-03-16 07:30 | NUR ---
Received report from [facility] shift nurse. Patient asleep in bed, no evidence of distress noted, bed in low position, side rails up x2.
[2017-03-16] MEDS ORDERED: Medication Not On Formulary EA (Multivitamins (Multivitamin) 1 TAB) PO SCH (09:00)
[2017-03-16] MEDS: FLUTICASONE/VILANTEROL 1 EACH BLST.W.DEV INH SCH (09:00)
[2017-03-16] MEDS: MELOXICAM 7.5 MG TABLET PO SCH (09:30)
[2017-03-16] MEDS: CLOPIDOGREL 75 MG TABLET PO SCH (09:30)
[2017-03-16] MEDS: MULTIVITAMINS,THERAPEUTIC TABLET PO SCH (09:30)
[2017-03-16] MEDS: DILTIAZEM HCL CD 120 MG CAP.SR.24H PO SCH (09:31)
[2017-03-16] MEDS: GABAPENTIN 100 MG CAPSULE PO SCH ×2 (09:31→18:09)
[2017-03-16] MEDS: MEGESTROL ACETATE 20 MG TABLET PO SCH ×2 (09:31→18:08)
[2017-03-16] MEDS: MONTELUKAST SODIUM 10 MG TABLET PO SCH (09:31)
[2017-03-16] MEDS: hydrALAZINE HCL 50 MG TABLET PO SCH ×3 (09:32→18:08)
[2017-03-16 11:52] VITALS: BP 112/43
[2017-03-16 15:45] VITALS: BP 120/70
--- NOTE | 2017-03-16 19:08 | NUR ---
Patient has had no distress today. No shortness of breath, no pain reported. Tele was discontinued. Currently in bed awake, bed in low position, side rails up x2.
[2017-03-16 20:00] VITALS: BP 131/43
[2017-03-16] MEDS: CLONAZEPAM 0.5 MG TABLET PO SCH (21:13)
[2017-03-16] MEDS: MIRTAZAPINE 15 MG TABLET PO SCH (21:13)
[2017-03-17] MEDS: ACETAMINOPHEN 325 MG TABLET PO PRN (00:50)
--- NOTE | 2017-03-17 01:10 | NUR ---
PT COMPLAINED OF ABDOMINAL PAIN 6/10, ASSESSED BLADDER OF ANY DISTENTION, BLADDER SCAN DONE, PROCEDURE TOLERATED WELL BY PATIENT, NOTED URINARY RETENTION OF 630ML. NOTIFIED. IN AND OUT CATHERIZATION DONE ASEPTICALLY. EXPLANATION PROVIDED TO PATIENT, PT VERBALIZED UNDERSTANDING, PT TOLERATED PROCEDURE WELL. OBTAINED 800ML OF DARK CONCENTRATED URINE, NO SEDIMENTS NOTED. NOTIFIED.
[2017-03-17 05:14] VITALS: BP 133/46
[2017-03-17] MEDS: PANTOPRAZOLE SODIUM 40 MG TABLET.DR PO SCH (06:32)
[2017-03-17 06:39] LABS: CARBON DIOXIDE 26 mmol/L (21-32); CHLORIDE 106 mmol/L (98-107); CREATININE 1.1 mg/dL (0.6-1.3); GLUCOSE 91 mg/dL (74-106); PHOSPHOROUS 3.8 mg/dL (2.5-4.9); POTASSIUM 3.8 mmol/L (3.5-5.1); UREA NITROGEN, BLOOD 15 mg/dL (7-18)
--- NOTE | 2017-03-17 06:45 | NUR ---
PT SLEPT WELL, IN NO ACUTE DISTRESS. REASSESSED FOR URINARY RETENTION, BLADDER SCAN DONE WITH 551 ML URINARY RETENTION. PATIENT EXPRESSED RELIEF FROM TYLENOL AND VOID THRU STRAIGHT CATH DONE AT 0110. ASSISTED PATIENT WITH TOILETING NEEDS, ATTEMPTED TO COLLECT STOOL VIA HAT FOR SAMPLE BUT STOOL WAS MIXED WITH URINE. PATIENT VOIDED 300ML. BLADDER SCAN FOR POST VOID RESIDUAL DONE NOTING TO HAVE 360ML URINE. PATIENT TOLERATED PROCEDURE WELL. PATIENT STILL C/O OF DISCOMFORT. WILL NOTIFY MD, WILL ENDORSE TO ONCOMING SHIFT RN.
[2017-03-17 06:48] LABS: BASOPHILS # (AUTO) 0.1 K/uL (0.0-8.0); BASOPHILS % (AUTO) 0.6 % (0.0-2.0); EOSINOPHILS # (AUTO) 0.3 K/uL (0.0-0.7); EOSINOPHILS % (AUTO) 3.6 % (0.0-7.0); HEMATOCRIT 36.3 % (37-47); HEMOGLOBIN 12.2 G/DL (12.0-16.0); LYMPHOCYTES # (AUTO) 1.9 K/UL (0.8-4.8); LYMPHOCYTES % (AUTO) 20.8 % (20.5-51.5); MEAN CORPUSCULAR HEMOGLOBIN 28.6 UUG (27.0-31.0); MEAN CORPUSCULAR HGB CONC 34 g/dL (32.0-37.0); MEAN CORPUSCULAR VOLUME 85.2 FL (81.0-99.0); MONOCYTES # (AUTO) 0.7 K/UL (0.1-1.30); MONOCYTES % (AUTO) 8.1 % (0.0-11.0); NEUTROPHILS # (AUTO) 6.2 K/UL (1.8-8.9); NEUTROPHILS % (AUTO) 66.9 % (38.5-71.5); PLATELET COUNT (AUTO) 289 K/UL (150-450); RED BLOOD CELL COUNT(AUTO) 4.26 MIL/UL (4.2-5.4); WHITE BLOOD COUNT (AUTO) 9.2 K/UL (4.0-11.2)
--- NOTE | 2017-03-17 07:10 | NUR ---
PATIENT IN BED AWAKE, NO EVIDENCE OF DISTRESS NOTED. BED IN LOW POSITION, SIDE RAILS UP X2.
[2017-03-17] MEDS: GABAPENTIN 100 MG CAPSULE PO SCH ×2 (09:08→17:58)
[2017-03-17] MEDS: hydrALAZINE HCL 50 MG TABLET PO SCH ×3 (09:17→17:58)
[2017-03-17] MEDS: DILTIAZEM HCL CD 120 MG CAP.SR.24H PO SCH (09:18)
[2017-03-17] MEDS: CLOPIDOGREL 75 MG TABLET PO SCH (09:18)
[2017-03-17] MEDS: MEGESTROL ACETATE 20 MG TABLET PO SCH ×2 (09:18→17:58)
[2017-03-17] MEDS: MONTELUKAST SODIUM 10 MG TABLET PO SCH (09:18)
[2017-03-17] MEDS: FLUTICASONE/VILANTEROL 1 EACH BLST.W.DEV INH SCH (09:19)
[2017-03-17] MEDS: MULTIVITAMINS,THERAPEUTIC TABLET PO SCH (09:19)
[2017-03-17] MEDS: MELOXICAM 7.5 MG TABLET PO SCH (09:19)
[2017-03-17 11:21] VITALS: BP_SYST 134; BP_SYST 174; BP_DIAS 45
[2017-03-17] MEDS ORDERED: hydrALAZINE HCL 25 MG TABLET PO PRN (11:45)
[2017-03-17] MEDS ORDERED: LEVOFLOXACIN 500 MG/D5W 500 MG in PREMIXED 1 EACH IV SCH (12:00)
[2017-03-17 12:01] VITALS: BP 137/51
[2017-03-17] MEDS: TAMSULOSIN HCL 0.4 MG CAP.SR.24H PO SCH ×2 (12:42→21:07)
[2017-03-17] MEDS ORDERED: METRONIDAZOLE 500 MG/NS 100ML 500 MG in PREMIXED 1 EACH IV SCH (14:00)
[2017-03-17 15:04] VITALS: BP 139/49
[2017-03-17] MEDS ORDERED: LEVOFLOXACIN/D5W 250 MG in PREMIX 1 EA IV SCH ×2 (15:30→17:00)
--- NOTE | 2017-03-17 18:00 | NUR ---
PATIENT WAS SEEN BY DR ORDAZ, EVIDENCE OF IMPACTION NOTED. INSTRUCTIONS FOR AN ENEMA GIVEN AND TO BE FOLLOWED THROUGH BY ROD CUP FILLER. DR ORDAZ CANCELLED ALL ANTIBIOTICS.
--- NOTE | 2017-03-17 19:30 | NUR ---
received patient laying comfortably in bed. son at bedside. no acute distress noted. patient report no pain at the moment. am rn betina went over how to do a special enema as ordered by MD. patient is alert and oriented x 4. safety initiated. call light within reach. will continue to monitor.
[2017-03-17 20:00] VITALS: BP 151/48
[2017-03-17] MEDS: CLONAZEPAM 0.5 MG TABLET PO SCH (21:07)
[2017-03-17] MEDS: MIRTAZAPINE 15 MG TABLET PO SCH (21:07)
[2017-03-17] MEDS: ACIDOPHILUS/BULGARICUS CHEW TAB PO SCH (21:07)
--- NOTE | 2017-03-17 22:00 | NUR ---
STARTED THE SPECIAL ENEMA. PATIENT TOLERATED THE PROCEDURE WELL. PATIENT WAS ABLE TO TAKE OUT 3 GOLF BALL SIZE STOOL. PATIENT STATED RELIEF. WILL CONTINUE TO MONITOR.
[2017-03-18 05:26] VITALS: BP 129/43
--- NOTE | 2017-03-18 05:58 | NUR ---
PATIENT MADE ANOTHER BM, GOLD BALL SIZE. URINATING OK.
--- NOTE | 2017-03-18 05:59 | NUR ---
PATIENT SLEPT INTERMITTENTLY T/O THE NIGHT. NO ACUTE DISTRESS NOTED. NO C/O OF PAIN. PATIENT STATED RELIEF AFTER SPECIAL ENEMA PROCEDURE. PATIENT WAS ABLE TO REMOVE A TOTAL OF 4 GOLF BALL SIZE OF STOOL. TOLERATED PROCEDURE WELL. SAFETY AND COMFORT MEASURES MAINTAINED T/O SHIFT. VITAL SIGNS STABLE. ALL MEDS GIVEN ORDERED. ALL NEEDS MET.
[2017-03-18] MEDS: PANTOPRAZOLE SODIUM 40 MG TABLET.DR PO SCH (06:04)
[2017-03-18 06:59] LABS: BASOPHILS # (AUTO) 0.1 K/uL (0.0-8.0); BASOPHILS % (AUTO) 0.6 % (0.0-2.0); EOSINOPHILS # (AUTO) 0.3 K/uL (0.0-0.7); EOSINOPHILS % (AUTO) 3.9 % (0.0-7.0); HEMATOCRIT 40.4 % (37-47); HEMOGLOBIN 13.5 G/DL (12.0-16.0); LYMPHOCYTES # (AUTO) 2.4 K/UL (0.8-4.8); LYMPHOCYTES % (AUTO) 27.3 % (20.5-51.5); MEAN CORPUSCULAR HEMOGLOBIN 28.8 UUG (27.0-31.0); MEAN CORPUSCULAR HGB CONC 34 g/dL (32.0-37.0); MONOCYTES # (AUTO) 0.8 K/UL (0.1-1.30); MONOCYTES % (AUTO) 9.3 % (0.0-11.0); NEUTROPHILS # (AUTO) 5.4 K/UL (1.8-8.9); NEUTROPHILS % (AUTO) 58.9 % (38.5-71.5); PLATELET COUNT (AUTO) 314 K/UL (150-450)
[2017-03-18 07:21] LABS: ALANINE AMINOTRANSFERASE 16 U/L (14-59); ALKALINE PHOSPHATASE 66 U/L (50-136); ASPARTATE AMINOTRANSFERASE 10 U/L (15-37); BILIRUBIN,TOTAL 0.3 mg/dL (0.2-1.0); CARBON DIOXIDE 26 mmol/L (21-32); CHLORIDE 107 mmol/L (98-107); CREATININE 1.1 mg/dL (0.6-1.3); GLUCOSE 98 mg/dL (74-106); PHOSPHOROUS 3.7 mg/dL (2.5-4.9); POTASSIUM 3.7 mmol/L (3.5-5.1); TOTAL PROTEIN, SERUM 7.2 g/dL (6.4-8.2); UREA NITROGEN, BLOOD 20 mg/dL (7-18)
--- NOTE | 2017-03-18 07:30 | NUR ---
RECEIVED REPORT FROM [employer] HARVESTING STATION NURSE, PATIENT IN BED ASLEEP, NO EVIDENCE OF DISTRESS NOTED, BED IN LOW POSITION, SIDE RAILS UP X2
[2017-03-18] MEDS: ACIDOPHILUS/BULGARICUS CHEW TAB PO SCH ×2 (08:33→20:15)
[2017-03-18] MEDS: CLOPIDOGREL 75 MG TABLET PO SCH (08:33)
[2017-03-18] MEDS: DILTIAZEM HCL CD 120 MG CAP.SR.24H PO SCH (08:33)
[2017-03-18] MEDS: MEGESTROL ACETATE 20 MG TABLET PO SCH ×2 (08:35→18:16)
[2017-03-18] MEDS: hydrALAZINE HCL 50 MG TABLET PO SCH ×3 (08:35→18:15)
[2017-03-18] MEDS: MONTELUKAST SODIUM 10 MG TABLET PO SCH (08:35)
[2017-03-18] MEDS: TAMSULOSIN HCL 0.4 MG CAP.SR.24H PO SCH ×2 (08:35→20:15)
[2017-03-18] MEDS: GABAPENTIN 100 MG CAPSULE PO SCH ×2 (08:36→18:16)
[2017-03-18] MEDS: MELOXICAM 7.5 MG TABLET PO SCH (08:36)
[2017-03-18] MEDS: MULTIVITAMINS,THERAPEUTIC TABLET PO SCH (08:37)
[2017-03-18] MEDS: FLUTICASONE/VILANTEROL 1 EACH BLST.W.DEV INH SCH (08:37)
[2017-03-18 11:01] VITALS: BP 146/45
[2017-03-18 15:20] VITALS: BP 117/46
[2017-03-18] MEDS ORDERED: FLEET ENEMA 133 ML BOTTLE RC ONE (18:45)
--- NOTE | 2017-03-18 19:13 | NUR ---
PATIENT HAS HAD TWO EPISODES OF DIARRHEA, BROWN LOOSE STOOL. PATIENT SPOKE WITH DR. STEELE AND EXPRESSED NOT WELL ENOUGH TO GO HOME AND C-DIFF RESULTS NOT IN YET. DR ORDAZ ORDERED ADDITIONAL FLEET ENEMA AND XRAY OF THE ABDOMEN (KUB). PATIENT IN BED AWAKE, WITH VISITOR AT THE BEDSIDE.
--- NOTE | 2017-03-18 19:30 | NUR ---
RECEIVED PATIENT LAYING COMFORTABLY IN BED. SON AT BEDSIDE. NO ACUTE DISTRESS NOTED. A&OX4. SAFETY INITIATED. CALL LIGHT WITHIN REACH. WILL CONTINUE TO MONITOR.
[2017-03-18 20:00] VITALS: BP 144/73
[2017-03-18] MEDS: MIRTAZAPINE 15 MG TABLET PO SCH (20:15)
[2017-03-18] MEDS: CLONAZEPAM 0.5 MG TABLET PO SCH (20:16)
--- NOTE | 2017-03-18 22:00 | NUR ---
FLEET ENEMA STARTED. TOLERATED WELL. QUARTER SIZE STOOL.
--- NOTE | 2017-03-19 05:00 | NUR ---
BLADDER SCAN DONE. BLADDER READ 668 ML. PATIENT STATES SHE WANTS TO EXCRETE HER URINE IN THE TOILET. SHE WAS ABLE TO DO SO. RE-DID THE BLADDER SCAN, IT READ 330 ML. EXPLAINED THAT I WILL PERFORM A STRAIGHT CATH TO EMPTY OUT HER BLADDER. EXPLAINED THE PROCEDURE AND THE BENEFITS, BUT STRONGLY REFUSED. SHE STATES "I WILL BE ABLE TO GO AGAIN LATER". WILL CONTINUE TO MONITOR.
[2017-03-19 05:51] VITALS: BP 138/45
--- NOTE | 2017-03-19 06:02 | NUR ---
NO CHANGES T/O SHIFT. NO ACUTE DISTRESS NOTED. PATIENT SLEPT INTERMITTENTLY T/O SHIFT. FLEET ENEMA DONE. TOLERATED WELL. BMX1. URINATING OK. SAFETY AND COMFORT MEASURES MAINTAINED T/O SHIFT. ALL MEDS GIVEN ORDERED. ALL NEEDS MET.
[2017-03-19] MEDS: PANTOPRAZOLE SODIUM 40 MG TABLET.DR PO SCH (06:03)
--- NOTE | 2017-03-19 07:10 | NUR ---
received report from operations supervisor 2nd shift nurse, patient in bed awake, no evidence of distress noted. bed in low position, side rails up x2.
[2017-03-19] MEDS: FLUTICASONE/VILANTEROL 1 EACH BLST.W.DEV INH SCH (08:15)
[2017-03-19] MEDS: MELOXICAM 7.5 MG TABLET PO SCH (08:16)
[2017-03-19] MEDS: MEGESTROL ACETATE 20 MG TABLET PO SCH (08:16)
[2017-03-19] MEDS: ACIDOPHILUS/BULGARICUS CHEW TAB PO SCH (08:16)
[2017-03-19] MEDS: GABAPENTIN 100 MG CAPSULE PO SCH (08:16)
[2017-03-19] MEDS: DILTIAZEM HCL CD 120 MG CAP.SR.24H PO SCH (08:17)
[2017-03-19] MEDS: hydrALAZINE HCL 50 MG TABLET PO SCH ×2 (08:18→13:00)
[2017-03-19] MEDS: MULTIVITAMINS,THERAPEUTIC TABLET PO SCH (08:18)
[2017-03-19] MEDS: CLOPIDOGREL 75 MG TABLET PO SCH (08:19)
[2017-03-19] MEDS: TAMSULOSIN HCL 0.4 MG CAP.SR.24H PO SCH (08:19)
[2017-03-19] MEDS: MONTELUKAST SODIUM 10 MG TABLET PO SCH (08:27)
[2017-03-19 11:36] VITALS: BP 136/57
[2017-03-19] MEDS ORDERED: MORPHINE SULFATE 4 MG/1 ML DISP.SYRIN IV PRN (14:00)
[2017-03-19 15:39] VITALS: BP 151/56
[2017-03-19] MEDS ORDERED: MIRT15TA7 PO (16:20)
[2017-03-19] MEDS ORDERED: CLON0.5T4 PO (16:20)
--- NOTE | 2017-03-19 16:40 | NUR ---
patient was discharged to home after removal of IV, all education provided, prescription handed to patient, belongings reconciled and medications picked up from pharmacy and returned to patient.
== END 2017-03-19 16:35 | disposition home or self-care (01) | DRG 372 ==
LOC: ER 15:57 → TELE 18:00 → MED 03-16 13:20
PROVIDERS: ADMIT Internal Medicine; ATTEND Internal Medicine
PROC: 3E1H78Z Irrigation of Lower GI using Irrigating Substance, Via Natural or Artificial Opening (ICD-10-PCS; principal; 2017-03-18)
DX: A04.9 Bacterial intestinal infection, unspecified (principal); J84.9 Interstitial pulmonary disease, unspecified; J90 Pleural effusion, not elsewhere classified; E44.0 Moderate protein-calorie malnutrition; D68.59 Other primary thrombophilia; E86.0 Dehydration; F33.9 Major depressive disorder, recurrent, unspecified; I48.0 Paroxysmal atrial fibrillation; E78.5 Hyperlipidemia, unspecified; K56.41 Fecal impaction; F41.9 Anxiety disorder, unspecified; H70.11 Chronic mastoiditis, right ear; J44.9 Chronic obstructive pulmonary disease, unspecified; J30.9 Allergic rhinitis, unspecified; K58.1 Irritable bowel syndrome with constipation; Z68.21 Body mass index [BMI] 21.0-21.9, adult; Z79.899 Other long term (current) drug therapy; I10 Essential (primary) hypertension
CPT/HCPCS: 36415; 71010; 74000; 83605; 83690; 83735; 84100; 85025; 87040; 87086; 93005; A4217; A4663; C1758; J1956; J2405; J3490; J7030

== ENCOUNTER 2017-09-26 15:47 | Inpatient (IN) | payer MEDICARE, OTHER ==
[~2017-09-26] VITALS: Ht 165.1 cm; Wt 55.8 kg
[~2017-09-26 15:47] MED LIST changes: -ACET325T53 PO; -ALBU2.5V7 NEB; +CLON0.5T12 PO; -CLON0.5T4 PO; +DILT-32 PO; -DILT120C2 PO; +FLUT1DIS27 INH; -FLUT1DIS27 PO; -LEVO500T2 PO; -MIRT15TA PO; +MIRT15TA7 PO
[2017-09-26] MEDS ORDERED: MECLIZINE HCL 25 MG TABLET PO ONE (16:22)
[2017-09-26 16:40] LABS: BASOPHILS % (AUTO) 0.4 % (0.0-2.0); HEMATOCRIT 40.7 % (31.2-41.9); HEMOGLOBIN 13.6 g/dL (10.9-14.3); LYMPHOCYTES # (AUTO) 0.6 K/uL (20.0-40.0); LYMPHOCYTES % (AUTO) 6.1 % (20.5-51.5); MEAN CORPUSCULAR HGB CONC 33 g/dL (32.3-35.6); MEAN CORPUSCULAR VOLUME 87.1 fL (75.5-95.3); MONOCYTES # (AUTO) 0.3 K/uL (2.0-10.0); NEUTROPHILS # (AUTO) 8.5 K/uL (1.8-8.9); NEUTROPHILS % (AUTO) 90.5 % (38.5-71.5); PLATELET COUNT (AUTO) 208 K/uL (179-408); RED BLOOD CELL COUNT(AUTO) 4.67 MIL/uL (3.63-4.92); WHITE BLOOD COUNT (AUTO) 9.5 K/uL (3.8-11.8)
--- NOTE | 2017-09-26 16:40 | NUR ---
PT IS IN ROOM #1B. DR MALDONADO EVALUATED THE PT.
[2017-09-26] MEDS ORDERED: ONDANSETRON IV *ER 4 MG/2 ML VIAL IV ONE (16:45)
[2017-09-26] MEDS ORDERED: PANTOPRAZOLE SODIUM IV 40 MG in IV DEXTROSE 5% 100 ML IV ONE (16:45)
[2017-09-26] MEDS ORDERED: PANTOPRAZOLE SODIUM 40 MG VIAL ONE (16:45)
[2017-09-26] MEDS ORDERED: ONDANSETRON 4 MG/2 ML VIAL ONE (16:45)
[2017-09-26] MEDS ORDERED: IV NORMAL SALINE 500 ML IV ONE (16:45)
[2017-09-26] MEDS ORDERED: MECLIZINE HCL 25 MG TABLET ONE (16:46)
[2017-09-26 16:49] LABS: CARBON DIOXIDE 21 mmol/L (21-32); CHLORIDE 101 mmol/L (98-107); GLUCOSE 186 mg/dL (74-106); POTASSIUM 3.6 mmol/L (3.5-5.1); UREA NITROGEN, BLOOD 17 mg/dL (7-18)
[2017-09-26 16:55] LABS: ALANINE AMINOTRANSFERASE 20 U/L (14-59); ALKALINE PHOSPHATASE 81 U/L (50-136); ASPARTATE AMINOTRANSFERASE 9 U/L (15-37); BILIRUBIN,TOTAL 0.3 mg/dL (0.2-1.0); CREATINE KINASE, TOTAL 44 U/L (26-192); TOTAL PROTEIN, SERUM 7.3 g/dL (6.4-8.2)
[2017-09-26 19:07] LABS: *BILIRUBIN,URIN NEGATIVE (NEGATIVE); *BLOOD, URINE NEGATIVE (NEGATIVE); *CLARITY,URINE CLEAR (CLEAR); *COLOR,URINE YELLOW (YELLOW); *KETONES,URINE NEGATIVE (NEGATIVE); *PROTEIN,URINE NEGATIVE (NEGATIVE); *UROBILINOGEN,URINE 0.2 E.U./dl (NORMAL); LEUKOCYTE ESTERASE ,URINE 1+ (NEGATIVE); NITRITE, URINE NEGATIVE (NEGATIVE); PH,URINE 6.5 (5.0-8.0); UGLUCOSE NEGATIVE (NEGATIVE)
[2017-09-26] MEDS ORDERED: hydrALAZINE HCL 20 MG/1 ML VIAL IV PRN (19:15)
[2017-09-26] MEDS ORDERED: MECLIZINE HCL 25 MG TABLET PO PRN (19:15)
[2017-09-26] MEDS ORDERED: FLUTICASONE/SALMETEROL 100/50 1 INH DISK.W.DEV IH SCH (19:15)
[2017-09-26] MEDS ORDERED: Medication Not On Formulary EA (Multivitamins (Multivitamin) 1 TAB) PO SCH (19:15)
--- NOTE | 2017-09-26 19:17 | NUR ---
PT IN BED. PT'S VISITOR AT BEDSIDE. PT IS CALM AND COOPERATIVE. PT A&OX4. VSS. BREATH SOUNDS REGULAR AND UNLABORED. REPORT RECEIVED FROM DAY SHIFT. PT'S LABS AND RADIOLOGY REVIEWED. WAITING TO GIVE REPORT TO TELE NURSE AND TRANFER PT TO 2ND FLOOR.
[2017-09-26 19:18] LABS: BACTERIA,URINE FEW /HPF (NONE SEEN); SQUAMOUS EPITHELIAL CELL,UR FEW /HPF (NONE SEEN); WBC,URINE 20-50 /HPF (0-3)
--- NOTE | 2017-09-26 19:20 | NUR ---
REPORT GIVEN TO HAT SPRAYER RN.
[2017-09-26 20:07] LABS: THYROID STIMULATING HORMONE 0.699 mIU/mL (0.358-3.740)
--- NOTE | 2017-09-26 20:12 | NUR ---
REPORT GIVEN TO TELEMETRY NURSE, RENITA HEMPHILL
--- NOTE | 2017-09-26 20:20 | NUR ---
US AT BEDSIDE
[2017-09-26] MEDS ORDERED: BLOOD SUGAR DIAGNOSTIC 1 EACH STRIP VI SCH (21:00)
[2017-09-26] MEDS ORDERED: hydrALAZINE HCL 25 MG TABLET ONE (21:09)
[2017-09-26] MEDS ORDERED: hydrALAZINE HCL 25 MG TABLET PO ONE (21:15)
--- NOTE | 2017-09-26 21:20 | NUR ---
PO CHALLENGE PASSED SUCCESSFULLY
--- NOTE | 2017-09-26 21:39 | NUR ---
PT ABLE TO AMBULATE TO RESTROOM WITH ASSISTANCE. PT HAS STEADY GAIT. PT DENIES DIZZINESS AND NAUSEA.
--- NOTE | 2017-09-26 21:51 | NUR ---
PT'S SON, MD GARCIA, REQUESTS TO BE CONTACTED REGARDING STATUS CHANGE OR BP
--- NOTE | 2017-09-26 21:55 | NUR ---
Pt. admitted to TELEMETRY TD, under care of Dr. HERRERA Belongs List completed
[2017-09-26 22:00] VITALS: BP 153/63
--- NOTE | 2017-09-26 22:00 | NUR ---
Admitted an 82 y.o female patient from ER via [facility] with DX: CVA, vertigo. Patient AAO but appears weak. NAD noted. Denies any pain. Saline lock to RODERICK; flushed, patent. Patient answers questions appropriately but slow ?secondary to language. Patient's primary language is Farsi. Fall and safety precautions discussed with patient. Verbalized understanding. [id number]. Addendum: 09/27/17 at 0117 by KRISTI WILDE RN Amended: Links added. Addendum: 09/27/17 at 0139 by KRISTI WILDE RN Amended: Links added.
[2017-09-26] MEDS: BLOOD SUGAR DIAGNOSTIC 1 EACH STRIP VI SCH (22:28)
--- NOTE | 2017-09-26 22:45 | NUR ---
NIHSS stroke scale completed; patient unable to give or describe information on testing card, but able to read sentences. Speech clear. Ambulated to the BR with help; gait steady. Voided clear yellow urine. No dizziness. Addendum: 09/27/17 at 0139 by KRISTI WILDE RN Amended: Links added.
--- NOTE | 2017-09-26 23:00 | NUR ---
Spoke to patient's daughter Israel. Claims that she noted her mother's speech was weak and she was non communicative when usually she's talkative. Discussed with her the plan of care; verbalized understanding.
[2017-09-26] MEDS: ACIDOPHILUS/BULGARICUS CHEW TAB PO SCH (23:26)
[2017-09-26] MEDS: SIMVASTATIN 40 MG TABLET PO SCH (23:26)
[2017-09-26] MEDS: MIRTAZAPINE 15 MG TABLET PO SCH (23:26)
[2017-09-26] MEDS: CLONAZEPAM 0.5 MG TABLET PO SCH (23:28)
[2017-09-26] MEDS: MEGESTROL ACETATE 20 MG TABLET PO SCH (23:30)
--- NOTE | 2017-09-26 23:30 | NUR ---
PO medications ordered by Dr. Nguyen are just now given. Patient was admitted to the floor at 2200. Took all meds without swallowing difficulty.
--- NOTE | 2017-09-26 23:35 | NUR ---
Klonopin dose not given; patient sleeping most of the time unless awakened for care.
[2017-09-27] VITALS (7 sets, daily range): BP systolic 118–152; BP diastolic 26–62
[2017-09-27] MEDS ORDERED: CLOPIDOGREL 75 MG TABLET ONE (00:01)
[2017-09-27] MEDS: BLOOD SUGAR DIAGNOSTIC 1 EACH STRIP VI SCH ×3 (00:02→11:56)
[2017-09-27] MEDS: CLOPIDOGREL 75 MG TABLET PO SCH ×2 (00:08→09:56)
--- NOTE | 2017-09-27 05:50 | NUR ---
Neuro assessment unchanged. NAD noted.
[2017-09-27 05:55] LABS: BASOPHILS % (AUTO) 0.6 % (0.0-2.0); EOSINOPHILS # (AUTO) 0.1 K/uL (0.0-0.7); EOSINOPHILS % (AUTO) 0.9 % (0.0-7.0); HEMATOCRIT 40.2 % (31.2-41.9); HEMOGLOBIN 13.4 g/dL (10.9-14.3); LYMPHOCYTES # (AUTO) 1.8 K/uL (20.0-40.0); LYMPHOCYTES % (AUTO) 26.4 % (20.5-51.5); MEAN CORPUSCULAR HEMOGLOBIN 29.1 uug (24.7-32.8); MEAN CORPUSCULAR HGB CONC 33 g/dL (32.3-35.6); MONOCYTES # (AUTO) 0.7 K/uL (2.0-10.0); MONOCYTES % (AUTO) 9.9 % (0.0-11.0); NEUTROPHILS # (AUTO) 4.3 K/uL (1.8-8.9); NEUTROPHILS % (AUTO) 62.2 % (38.5-71.5); PLATELET COUNT (AUTO) 221 K/uL (179-408); RED BLOOD CELL COUNT(AUTO) 4.63 MIL/uL (3.63-4.92)
--- NOTE | 2017-09-27 06:00 | NUR ---
Noted to have periorbital edema. Patient states she often has this. Denies SOB or any discomfort.
[2017-09-27] MEDS: PANTOPRAZOLE SODIUM 40 MG TABLET.DR PO SCH (06:10)
[2017-09-27 06:35] LABS: CARBON DIOXIDE 25 mmol/L (21-32); CHLORIDE 105 mmol/L (98-107); CHOLESTEROL 164 mg/dL (<200); CREATININE 1.1 mg/dL (0.6-1.3); GLUCOSE 84 mg/dL (74-106); HDL CHOLESTEROL 45 mg/dL (40-60); POTASSIUM 3.7 mmol/L (3.5-5.1); TRIGLYCERIDES 65 MG/DL (30-150); UREA NITROGEN, BLOOD 12 mg/dL (7-18)
--- NOTE | 2017-09-27 06:45 | NUR ---
Call placed to [facility] re: patient's angioedema. MRI questionnaire completed. Patient's daughter Israel notified of patient's transfer to CCU as [facility] overflow and MRI questions completed. Also updated of patient's condition.
--- NOTE | 2017-09-27 06:51 | NUR ---
TEXTED DR. LAGUNA FOR MRI APPROVAL.
[2017-09-27] MEDS ORDERED: FLUTICASONE/SALMETEROL 100/50 1 INH DISK.W.DEV IH SCH (07:00)
--- NOTE | 2017-09-27 07:20 | NUR ---
Report given to Vijay MARAVILLA. Still awaiting call back from [facility]. No neuro changes.
--- NOTE | 2017-09-27 07:44 | NUR ---
DR. LAGUNA TEXTED BACK.ON HOLD FOR NOW HE WILL LET US KNOW.
--- NOTE | 2017-09-27 08:00 | NUR ---
Spoke with Dr. Sorenson on the telephone regarding pt's new periorbital edema this morning and previous hx angioedema. New orders received and carried out.
--- NOTE | 2017-09-27 08:35 | NUR ---
Pt transferred from rm 219-T via wheelchair. Pt stable and nad noted upon transfer.
--- NOTE | 2017-09-27 09:50 | NUR ---
Speech therapist here at the bedside for swallow eval. Pt passed swallow eval and ST recommended pt to be put on cardiac diet. MD made aware. New orders received.
[2017-09-27] MEDS: ACIDOPHILUS/BULGARICUS CHEW TAB PO SCH ×2 (09:55→17:03)
[2017-09-27] MEDS: MULTIVITAMINS,THERAPEUTIC TABLET PO SCH (09:56)
[2017-09-27] MEDS: GABAPENTIN 100 MG CAPSULE PO SCH ×2 (09:56→17:03)
[2017-09-27] MEDS: ENOXAPARIN SODIUM 40 MG/0.4 ML DISP.SYRIN SQ SCH (09:59)
[2017-09-27] MEDS: MEGESTROL ACETATE 20 MG TABLET PO SCH ×2 (10:03→17:03)
[2017-09-27] MEDS ORDERED: IV 1/2NS 1000 ML 500 ML IV PRN (10:30)
[2017-09-27] MEDS ORDERED: diphenhydrAMINE 50 MG/1 ML VIAL IV PRN (10:45)
--- NOTE | 2017-09-27 11:00 | NUR ---
Dr. Naylor here to see pt. Full report given. No new orders received.
[2017-09-27] MEDS: FLUTICASONE/VILANTEROL 1 EACH BLST.W.DEV INH SCH (11:55)
--- NOTE | 2017-09-27 12:04 | NUR ---
US tech here at the bedside for 2D Echocardiogram.
--- NOTE | 2017-09-27 12:04 | NUR ---
Spoke with Dr. Sorenson on the telephone regarding pt's blood sugar and accuchecks. New orders received.
--- NOTE | 2017-09-27 15:35 | NUR ---
Dr. Sorenson here to see pt. Full report given. stated that it was okay to downgrade pt to telemetry status.
[2017-09-27] MEDS: CEFTRIAXONE 1 G in IV DEXTROSE 5% 50 ML IV SCH (16:13)
[2017-09-27] MEDS ORDERED: COUMADIN VARIABLE DOSE REMINDE XX SCH (17:00)
[2017-09-27] MEDS: MONTELUKAST SODIUM 10 MG TABLET PO SCH (17:04)
[2017-09-27] MEDS: MIRTAZAPINE 15 MG TABLET PO SCH (20:55)
[2017-09-27] MEDS: SIMVASTATIN 40 MG TABLET PO SCH (20:55)
[2017-09-27] MEDS: CLONAZEPAM 0.5 MG TABLET PO SCH (20:55)
[2017-09-28 00:01] VITALS: BP 147/57
[2017-09-28 00:43] VITALS: BP 147/57
[2017-09-28 04:00] VITALS: BP 136/51
[2017-09-28 06:27] LABS: BASOPHILS # (AUTO) 0.1 K/uL (0.0-8.0); BASOPHILS % (AUTO) 1.3 % (0.0-2.0); EOSINOPHILS # (AUTO) 0.1 K/uL (0.0-0.7); EOSINOPHILS % (AUTO) 1.9 % (0.0-7.0); HEMATOCRIT 38.1 % (31.2-41.9); LYMPHOCYTES # (AUTO) 2.1 K/uL (20.0-40.0); LYMPHOCYTES % (AUTO) 29.7 % (20.5-51.5); MEAN CORPUSCULAR HEMOGLOBIN 29.7 uug (24.7-32.8); MEAN CORPUSCULAR HGB CONC 34 g/dL (32.3-35.6); MEAN CORPUSCULAR VOLUME 86.9 fL (75.5-95.3); MONOCYTES # (AUTO) 0.6 K/uL (2.0-10.0); MONOCYTES % (AUTO) 8.7 % (0.0-11.0); NEUTROPHILS # (AUTO) 4.2 K/uL (1.8-8.9); NEUTROPHILS % (AUTO) 58.4 % (38.5-71.5); PLATELET COUNT (AUTO) 197 K/uL (179-408); RED BLOOD CELL COUNT(AUTO) 4.39 MIL/uL (3.63-4.92); WHITE BLOOD COUNT (AUTO) 7.1 K/uL (3.8-11.8)
[2017-09-28] MEDS: PANTOPRAZOLE SODIUM 40 MG TABLET.DR PO SCH (06:32)
[2017-09-28 08:18] LABS: ALANINE AMINOTRANSFERASE 19 U/L (14-59); ALKALINE PHOSPHATASE 67 U/L (50-136); ASPARTATE AMINOTRANSFERASE 12 U/L (15-37); BILIRUBIN,TOTAL 0.3 mg/dL (0.2-1.0); CARBON DIOXIDE 26 mmol/L (21-32); CHLORIDE 105 mmol/L (98-107); CREATININE 1.1 mg/dL (0.6-1.3); GLUCOSE 86 mg/dL (74-106); PHOSPHOROUS 3.7 mg/dL (2.5-4.9); POTASSIUM 3.7 mmol/L (3.5-5.1); TOTAL PROTEIN, SERUM 6.3 g/dL (6.4-8.2); UREA NITROGEN, BLOOD 19 mg/dL (7-18)
--- NOTE | 2017-09-28 09:00 | NUR ---
Pt is requesting to be discharged. MD is aware
[2017-09-28] MEDS: MEGESTROL ACETATE 20 MG TABLET PO SCH ×2 (09:01→16:15)
[2017-09-28] MEDS: ACIDOPHILUS/BULGARICUS CHEW TAB PO SCH ×2 (09:01→16:15)
[2017-09-28] MEDS: GABAPENTIN 100 MG CAPSULE PO SCH ×2 (09:01→16:15)
[2017-09-28] MEDS: MULTIVITAMINS,THERAPEUTIC TABLET PO SCH (09:02)
[2017-09-28] MEDS: FLUTICASONE/VILANTEROL 1 EACH BLST.W.DEV INH SCH (09:02)
[2017-09-28] MEDS: ENOXAPARIN SODIUM 40 MG/0.4 ML DISP.SYRIN SQ SCH (09:03)
[2017-09-28] MEDS: CLOPIDOGREL 75 MG TABLET PO SCH (09:03)
--- NOTE | 2017-09-28 09:05 | NUR ---
Pt is being evaluated by physical therapy
[2017-09-28 11:02] VITALS: BP 134/47
--- NOTE | 2017-09-28 12:40 | NUR ---
Stroke package given to the patient, explained s/s of stroke and educated her on the information provided in the stroke package. Pt has a visitor at bedside. Noted pt attentive to information given while eating her dessert on her own.
--- NOTE | 2017-09-28 14:00 | NUR ---
Pt was seen by occupational therapist
[2017-09-28] MEDS: CEFTRIAXONE 1 G in IV DEXTROSE 5% 50 ML IV SCH (15:52)
[2017-09-28 16:22] VITALS: BP 128/52
[2017-09-28] MEDS: MONTELUKAST SODIUM 10 MG TABLET PO SCH (17:50)
--- NOTE | 2017-09-28 17:51 | NUR ---
Offered pt montelukast as scheduled for 1800. Pt refused stating that she has no asthma right now. Explained risks and benefits, pt still refused
--- NOTE | 2017-09-28 19:20 | NUR ---
Received patient appears sleeping. No s/s of pain/discomforts noted. Safety measures and fall precaution maintained. IVF infusing well on RH with no s/s of infiltration. Continue care as planned.
[2017-09-28 19:36] VITALS: BP 153/50
[2017-09-28] MEDS ORDERED: hydrALAZINE HCL 25 MG TABLET PO PRN (20:30)
[2017-09-28] MEDS: IV 1/2NS 1000 ML 1,000 ML IV PRN (20:52)
[2017-09-28] MEDS: SIMVASTATIN 40 MG TABLET PO SCH (20:56)
[2017-09-28] MEDS: MIRTAZAPINE 15 MG TABLET PO SCH (20:56)
[2017-09-28] MEDS: CLONAZEPAM 0.5 MG TABLET PO SCH (20:56)
--- NOTE | 2017-09-28 22:14 | NUR ---
Assisted to the BR with minimal assist. Voiding well.
[2017-09-29] VITALS (12 sets, daily range): BP systolic 141–206; BP diastolic 51–74
--- NOTE | 2017-09-29 05:30 | NUR ---
Shift end report: Slept well. No complaint presented all night. No fall/injury. All needsa ttended and met. Continue plan of care.
[2017-09-29] MEDS: PANTOPRAZOLE SODIUM 40 MG TABLET.DR PO SCH (05:42)
--- NOTE | 2017-09-29 07:20 | NUR ---
0720 Received report from Chai Hamilton RN, patient is resting in bed, dangling. IV is infusing at 60 cc per hour. No complaints of pain given. 0824 assisted to bathroom, voided and brushed her teeth. Breakfast taken 50%.
[2017-09-29] MEDS: ACIDOPHILUS/BULGARICUS CHEW TAB PO SCH ×2 (08:31→17:06)
[2017-09-29] MEDS: CLOPIDOGREL 75 MG TABLET PO SCH (08:32)
[2017-09-29] MEDS: GABAPENTIN 100 MG CAPSULE PO SCH ×2 (08:32→17:06)
[2017-09-29] MEDS: FLUTICASONE/VILANTEROL 1 EACH BLST.W.DEV INH SCH (08:32)
[2017-09-29] MEDS: MEGESTROL ACETATE 20 MG TABLET PO SCH ×2 (08:32→17:06)
[2017-09-29] MEDS: MULTIVITAMINS,THERAPEUTIC TABLET PO SCH (08:32)
[2017-09-29] MEDS: ENOXAPARIN SODIUM 40 MG/0.4 ML DISP.SYRIN SQ SCH (09:08)
[2017-09-29] MEDS: hydrALAZINE HCL 25 MG TABLET PO SCH ×4 (11:22→22:28)
[2017-09-29] MEDS ORDERED: CEFT1VIA15 IV (13:05)
[2017-09-29] MEDS ORDERED: SIMV40TA5 PO (13:05)
[2017-09-29] MEDS ORDERED: FLUT1BLS INH (13:05)
[2017-09-29] MEDS ORDERED: HYDR25TA86 PO (13:05)
[2017-09-29] MEDS: IV 1/2NS 1000 ML 1,000 ML IV PRN (14:43)
[2017-09-29] MEDS: CEFTRIAXONE 1 G in IV DEXTROSE 5% 50 ML IV SCH (15:51)
--- NOTE | 2017-09-29 16:37 | NUR ---
Patient is discharge, report given to Katie MARAVILLA in Acute Rehab, patient is completing her dose of Rocelphin IVPB, Patient to be heplock, Physical therapist did not see patient, patient was going to rehab. Occupational therapy walked patient in hallway.
[2017-09-29] MEDS: MONTELUKAST SODIUM 10 MG TABLET PO SCH (18:01)
[2017-09-29] MEDS ORDERED: CLONIDINE HCL 0.1 MG TABLET PO PRN (18:30)
--- NOTE | 2017-09-29 18:31 | NUR ---
Dr Sorenson was called, BP was 196/74, then 206/74 left arm, and repeated 187/64 left arm BP, hydralazine was given before 6 pm. Rehab Katie made aware will check BP in [address] Sorenson is adjusting the medications, Patient is not anxious.
--- NOTE | 2017-09-29 19:15 | NUR ---
Patient's son Dr Meredith was notified of elevated BP, that Dr Sorenson has made adjustment to her Blood Pressure Medications, Hydralazine was increased to 75 mg, pt's son states patient take Hydralazine 100 mg 3 x a day. Next shift will monitor BP.
[2017-09-29] MEDS: DILTIAZEM HCL CD 120 MG CAP.SR.24H PO SCH (19:27)
--- NOTE | 2017-09-29 20:00 | NUR ---
pt bp elevated, spoke with Dr. Sorenson regarding pt bp, Dr. Sorenson states that pt can stay overnight if bp doesn't subsides. family concerned , pt probably anxious to go to rehab. rechecked bp still elevated, [id number]. will rechecked in an hour.
[2017-09-29] MEDS: MIRTAZAPINE 15 MG TABLET PO SCH (20:27)
[2017-09-29] MEDS: CLONAZEPAM 0.5 MG TABLET PO SCH (20:28)
[2017-09-29] MEDS ORDERED: SIMVASTATIN 10 MG TABLET PO SCH (21:00)
[2017-09-30 04:00] VITALS: BP 121/50
[2017-09-30] MEDS: hydrALAZINE HCL 25 MG TABLET PO SCH (06:00)
[2017-09-30] MEDS: PANTOPRAZOLE SODIUM 40 MG TABLET.DR PO SCH (06:00)
--- NOTE | 2017-09-30 06:30 | NUR ---
pt alert,oriented,ambulatory,had headache but refused any meds, bp wnl after all bp meds given, slept well,had small bm. will be transfering to rehab this morning. will continue to monitor.
--- NOTE | 2017-09-30 07:47 | NUR ---
patient resting comfortably in bed, no s/s of distress, no signs of neurological deficits. plan to d/c today to [facility] acute rehab.
[2017-09-30] MEDS: MULTIVITAMINS,THERAPEUTIC TABLET PO SCH (08:44)
[2017-09-30] MEDS: GABAPENTIN 100 MG CAPSULE PO SCH (08:44)
[2017-09-30] MEDS: MEGESTROL ACETATE 20 MG TABLET PO SCH (08:44)
[2017-09-30] MEDS: ACIDOPHILUS/BULGARICUS CHEW TAB PO SCH (08:44)
[2017-09-30] MEDS: FLUTICASONE/VILANTEROL 1 EACH BLST.W.DEV INH SCH (08:44)
[2017-09-30] MEDS: DILTIAZEM HCL CD 120 MG CAP.SR.24H PO SCH (08:44)
[2017-09-30] MEDS: ENOXAPARIN SODIUM 40 MG/0.4 ML DISP.SYRIN SQ SCH (08:47)
[2017-09-30 09:00] VITALS: BP 144/48
[2017-09-30] MEDS: CLOPIDOGREL 75 MG TABLET PO SCH (10:07)
--- NOTE | 2017-09-30 10:45 | NUR ---
patient discharged to [facility] acute rehab at this time in stable condition. blood pressure stabilized: 144/48, hr 64. discharge instructions provided. iv intact, patent.
== END 2017-09-30 10:45 | DRG 64 ==
LOC: ER 15:51 → DOU 21:44 → EDBD 21:44 → TELE-TD 22:30 → CCU 09-27 08:58 → TELE 09-27 19:08 → MED 09-28 21:00
PROVIDERS: ADMIT Internal Medicine; ATTEND Internal Medicine
DX: I63.9 Cerebral infarction, unspecified (principal); G93.49 Other encephalopathy; J84.9 Interstitial pulmonary disease, unspecified; J90 Pleural effusion, not elsewhere classified; E44.0 Moderate protein-calorie malnutrition; D68.59 Other primary thrombophilia; I48.0 Paroxysmal atrial fibrillation; F41.9 Anxiety disorder, unspecified; E78.5 Hyperlipidemia, unspecified; N39.0 Urinary tract infection, site not specified; I10 Essential (primary) hypertension; I25.10 Atherosclerotic heart disease of native coronary artery without angina pectoris; J44.9 Chronic obstructive pulmonary disease, unspecified; K58.9 Irritable bowel syndrome, unspecified; R29.701 NIHSS score 1; Z79.02 Long term (current) use of antithrombotics/antiplatelets; Z79.899 Other long term (current) drug therapy; Z68.20 Body mass index [BMI] 20.0-20.9, adult; Z74.09 Other reduced mobility; J30.9 Allergic rhinitis, unspecified; Z86.73 Personal history of transient ischemic attack (TIA), and cerebral infarction without residual deficits
CPT/HCPCS: 36415; 70030-TC; 70450; 71045; 83735; 84100; 84443; 85025; 85610; 85730; 92610; 93005; 93307; 93880; 97110; 97112; 97116; 97165; 97530; A4663; C9113; J0696; J1200; J1650; J2405; J3490; J7030; J7060; J8597

== ENCOUNTER 2017-09-30 11:01 | Inpatient (IN) | payer MEDICARE, OTHER ==
[~2017-09-30] VITALS: Ht 165.1 cm; Wt 56.5 kg
[~2017-09-30 11:01] MED LIST changes: +CEFT1VIA15 IV; -CLON0.5T12 PO; +CLON0.5T4 PO; +FLUT1BLS INH; -FLUT1DIS27 INH; -HYDR-4077 PO; +HYDR25TA86 PO; +SIMV40TA5 PO
[2017-09-30] MEDS ORDERED: Z GUARD REMEDY PASTE 57 GM TUBE TOP PRN (11:45)
[2017-09-30] MEDS ORDERED: MAGNESIUM HYDROXIDE 30 ML LIQUID UDC PO PRN (11:45)
[2017-09-30 13:05] VITALS: BP 147/52
[2017-09-30] MEDS ORDERED: MECLIZINE HCL 25 MG TABLET PO PRN (13:15)
[2017-09-30] MEDS ORDERED: CLONIDINE HCL 0.1 MG TABLET PO PRN (13:30)
--- NOTE | 2017-09-30 13:35 | NUR ---
PT. RECEIVED FROM [facility] 2ND FLOOR AROUND 1050AM ON STABLE CONDITION. DX OF CVA DIZZINESS,VERTIGO. NO COMPLAINT OF PAIN.DISCOMFORT. WILL CONTINUE MONITOR
[2017-09-30] MEDS: hydrALAZINE HCL 50 MG TABLET PO SCH ×2 (14:27→22:00)
[2017-09-30 15:58] VITALS: BP 137/54
[2017-09-30] MEDS: CEFTRIAXONE 1 G in IV DEXTROSE 5% 50 ML IV SCH (16:21)
[2017-09-30] MEDS: ACIDOPHILUS/BULGARICUS CHEW TAB PO SCH (16:52)
[2017-09-30] MEDS: GABAPENTIN 100 MG CAPSULE PO SCH (16:52)
[2017-09-30] MEDS: MEGESTROL ACETATE 20 MG TABLET PO SCH (16:53)
[2017-09-30] MEDS: MONTELUKAST SODIUM 10 MG TABLET PO SCH (16:58)
--- NOTE | 2017-09-30 19:30 | NUR ---
Patient stable at start of shift. No acute distress noted. Family at the bedside. Vital signs within range. Noted with Right forearm IV 20G which is flushing well & patent. Patient is A/Ox3, Mexican/Farsi speaking & able to make needs known. Vital signs WNL at start of shift. Bed in low position & locked. Call light within reach of patient. Will continue to monitor through shift.
[2017-09-30 20:38] VITALS: BP 137/48
[2017-09-30] MEDS: CLONAZEPAM 0.5 MG TABLET PO SCH (20:39)
[2017-09-30] MEDS: MIRTAZAPINE 15 MG TABLET PO SCH (20:39)
[2017-09-30] MEDS: SIMVASTATIN 10 MG TABLET PO SCH (20:39)
[2017-10-01 06:00] VITALS: BP 139/56
[2017-10-01] MEDS: hydrALAZINE HCL 50 MG TABLET PO SCH ×3 (06:24→21:25)
[2017-10-01] MEDS: PANTOPRAZOLE SODIUM 40 MG TABLET.DR PO SCH (06:24)
[2017-10-01 07:51] VITALS: BP 163/65
[2017-10-01] MEDS: MULTIVITAMINS,THERAPEUTIC TABLET PO SCH (08:41)
[2017-10-01] MEDS: MELOXICAM 7.5 MG TABLET PO SCH (08:41)
[2017-10-01] MEDS: GABAPENTIN 100 MG CAPSULE PO SCH ×2 (08:41→17:06)
[2017-10-01] MEDS: DILTIAZEM HCL CD 120 MG CAP.SR.24H PO SCH (08:41)
[2017-10-01] MEDS: MEGESTROL ACETATE 20 MG TABLET PO SCH ×2 (08:41→17:07)
[2017-10-01] MEDS: CLOPIDOGREL 75 MG TABLET PO SCH (08:41)
[2017-10-01] MEDS: ACIDOPHILUS/BULGARICUS CHEW TAB PO SCH ×2 (08:41→17:06)
[2017-10-01] MEDS: FLUTICASONE/VILANTEROL 1 EACH BLST.W.DEV INH SCH (08:42)
[2017-10-01] MEDS ORDERED: Medication Not On Formulary EA (Multivitamins (Multivitamin) 1 TAB) PO SCH (09:00)
[2017-10-01] MEDS: MONTELUKAST SODIUM 10 MG TABLET PO SCH (17:06)
[2017-10-01] MEDS: CEFTRIAXONE 1 G in IV DEXTROSE 5% 50 ML IV SCH (17:07)
--- NOTE | 2017-10-01 19:30 | NUR ---
Patient stable at start of shift. No acute distress noted. Vital signs within range. Pertinent assessment completed. Patient is A/Ox3-4 & able to make her needs known. Noted with Right forearm IV 20G which is patent & flushing well. No s/s of redness or infiltration at IV site. Family currently at the bedside. Bed placed in low position & locked. Encouraged patient to use call light when needing to ambulate for safety. Call light placed within reach. Will continue to monitor through shift.
[2017-10-01 19:57] VITALS: BP 134/41
[2017-10-01] MEDS: MIRTAZAPINE 15 MG TABLET PO SCH (20:30)
[2017-10-01] MEDS: CLONAZEPAM 0.5 MG TABLET PO SCH (20:30)
[2017-10-01] MEDS: SIMVASTATIN 10 MG TABLET PO SCH (20:31)
[2017-10-02] MEDS: PANTOPRAZOLE SODIUM 40 MG TABLET.DR PO SCH (06:18)
[2017-10-02] MEDS: hydrALAZINE HCL 50 MG TABLET PO SCH ×3 (06:18→21:39)
[2017-10-02 08:00] VITALS: BP 140/48
[2017-10-02] MEDS: DILTIAZEM HCL CD 120 MG CAP.SR.24H PO SCH (09:00)
[2017-10-02] MEDS: MEGESTROL ACETATE 20 MG TABLET PO SCH ×2 (09:06→17:15)
[2017-10-02] MEDS: CLOPIDOGREL 75 MG TABLET PO SCH (09:06)
[2017-10-02] MEDS: ACIDOPHILUS/BULGARICUS CHEW TAB PO SCH ×2 (09:06→17:15)
[2017-10-02] MEDS: MELOXICAM 7.5 MG TABLET PO SCH (09:07)
[2017-10-02] MEDS: GABAPENTIN 100 MG CAPSULE PO SCH ×2 (09:07→17:15)
[2017-10-02] MEDS: MULTIVITAMINS,THERAPEUTIC TABLET PO SCH (09:07)
[2017-10-02] MEDS: FLUTICASONE/VILANTEROL 1 EACH BLST.W.DEV INH SCH (09:08)
--- NOTE | 2017-10-02 14:32 | NUR ---
Patient noted resting in bed with eyes closed, no facial cues of pain noted, no signs of distress, call light in reach, bed locked and in lowest position, x 2 bed rails, all AM medications taken without trouble, all needs met at this time.
[2017-10-02 16:30] VITALS: BP 147/51
[2017-10-02] MEDS: MONTELUKAST SODIUM 10 MG TABLET PO SCH (17:15)
[2017-10-02] MEDS: CEFTRIAXONE 1 G in IV DEXTROSE 5% 50 ML IV SCH (17:15)
--- NOTE | 2017-10-02 19:30 | NUR ---
Received pt in bed, AAO x 3 with family member at bedside. No acute distress noted. Verbally responsive and able to make needs known. Denies pain or discomfort at this time. All safety measures and fall precautions maintained. Call light and all personal belongings within reach. Will continue to monitor.
[2017-10-02] MEDS: CLONAZEPAM 0.5 MG TABLET PO SCH (20:46)
[2017-10-02] MEDS: MIRTAZAPINE 15 MG TABLET PO SCH (20:46)
[2017-10-02] MEDS: SIMVASTATIN 10 MG TABLET PO SCH (20:46)
[2017-10-02 21:37] VITALS: BP 153/50
[2017-10-03 05:00] VITALS: BP 147/49
[2017-10-03] MEDS: PANTOPRAZOLE SODIUM 40 MG TABLET.DR PO SCH (06:56)
[2017-10-03] MEDS: hydrALAZINE HCL 50 MG TABLET PO SCH ×3 (06:58→21:14)
[2017-10-03 07:10] VITALS: BP 139/59
[2017-10-03 07:43] LABS: ALANINE AMINOTRANSFERASE 22 U/L (14-59); ALKALINE PHOSPHATASE 64 U/L (50-136); ASPARTATE AMINOTRANSFERASE 17 U/L (15-37); BILIRUBIN,TOTAL 0.5 mg/dL (0.2-1.0); CARBON DIOXIDE 24 mmol/L (21-32); CHLORIDE 106 mmol/L (98-107); CREATININE 0.9 mg/dL (0.6-1.3); GLUCOSE 85 mg/dL (74-106); MAGNESIUM 2.2 mg/dL (1.8-2.4); PHOSPHOROUS 3.6 mg/dL (2.5-4.9); TOTAL PROTEIN, SERUM 6.4 g/dL (6.4-8.2); UREA NITROGEN, BLOOD 15 mg/dL (7-18)
[2017-10-03 07:46] LABS: BASOPHILS # (AUTO) 0.1 K/uL (0.0-8.0); BASOPHILS % (AUTO) 1.3 % (0.0-2.0); EOSINOPHILS # (AUTO) 0.2 K/uL (0.0-0.7); EOSINOPHILS % (AUTO) 3.7 % (0.0-7.0); HEMATOCRIT 37.9 % (31.2-41.9); HEMOGLOBIN 13.2 g/dL (10.9-14.3); LYMPHOCYTES # (AUTO) 1.7 K/uL (20.0-40.0); LYMPHOCYTES % (AUTO) 32.5 % (20.5-51.5); MEAN CORPUSCULAR HGB CONC 35 g/dL (32.3-35.6); MEAN CORPUSCULAR VOLUME 86.5 fL (75.5-95.3); MONOCYTES # (AUTO) 0.6 K/uL (2.0-10.0); MONOCYTES % (AUTO) 10.7 % (0.0-11.0); NEUTROPHILS # (AUTO) 2.7 K/uL (1.8-8.9); NEUTROPHILS % (AUTO) 51.8 % (38.5-71.5); PLATELET COUNT (AUTO) 189 K/uL (179-408); RED BLOOD CELL COUNT(AUTO) 4.39 MIL/uL (3.63-4.92)
[2017-10-03 07:53] LABS: WHITE BLOOD COUNT (AUTO) 5.3 K/uL (3.8-11.8)
[2017-10-03] MEDS: DILTIAZEM HCL CD 120 MG CAP.SR.24H PO SCH (09:00)
[2017-10-03] MEDS: ACIDOPHILUS/BULGARICUS CHEW TAB PO SCH ×2 (09:58→17:08)
[2017-10-03] MEDS: CLOPIDOGREL 75 MG TABLET PO SCH (09:58)
[2017-10-03] MEDS: MULTIVITAMINS,THERAPEUTIC TABLET PO SCH (09:58)
[2017-10-03] MEDS: GABAPENTIN 100 MG CAPSULE PO SCH ×2 (09:58→17:09)
[2017-10-03] MEDS: MEGESTROL ACETATE 20 MG TABLET PO SCH ×2 (09:59→17:08)
[2017-10-03] MEDS: FLUTICASONE/VILANTEROL 1 EACH BLST.W.DEV INH SCH (10:00)
[2017-10-03] MEDS: MELOXICAM 7.5 MG TABLET PO SCH (10:08)
--- NOTE | 2017-10-03 10:13 | NUR ---
RECEIVED PT. IN BED ALERT AND ORIENTEDX3.NOT IN DISTRESS. NO COMPLAINT OF PAIN/DISCOMFORT NOTED. CONTINUE ON ABT TREATMENT FOR UTI, NO ADVERSE REACTION NOTED. WILL CONTINUE MONITOR
[2017-10-03 15:52] VITALS: BP 139/56
[2017-10-03] MEDS: CEFTRIAXONE 1 G in IV DEXTROSE 5% 50 ML IV SCH (16:08)
[2017-10-03] MEDS: MONTELUKAST SODIUM 10 MG TABLET PO SCH (17:08)
--- NOTE | 2017-10-03 17:49 | NUR ---
PT. CONSUMED 90% OF BREAKFAST AND DINNER. NO COMPLAINT OF PAIN/DISCOMFORT. WILL CONTINUE MONITOR
--- NOTE | 2017-10-03 19:39 | NUR ---
Received pt in bed, AAO x 3 watching television. No acute distress noted. Denies pain or discomfort at this time. Verbally responsive and able to make needs known. All safety measures and fall precautions maintained. Call light and all personal belongings within reach. Will continue to monitor.
[2017-10-03 20:21] VITALS: BP 150/49
[2017-10-03] MEDS: CLONAZEPAM 0.5 MG TABLET PO SCH (20:45)
[2017-10-03] MEDS: SIMVASTATIN 10 MG TABLET PO SCH (20:45)
[2017-10-03] MEDS: MIRTAZAPINE 15 MG TABLET PO SCH (20:45)
[2017-10-04] MEDS: hydrALAZINE HCL 50 MG TABLET PO SCH ×2 (06:00→13:49)
[2017-10-04] MEDS: PANTOPRAZOLE SODIUM 40 MG TABLET.DR PO SCH (06:20)
--- NOTE | 2017-10-04 06:30 | NUR ---
AM dose of hydralazine 75 mg PO held due to decreased HR of 50 bpm. No acute distress noted. Denies feeling dizzy or light headed. Safety maintained. Call light within reach. Will continue to monitor. Will endorse to AM shift.
[2017-10-04] MEDS: GABAPENTIN 100 MG CAPSULE PO SCH ×2 (08:12→17:37)
[2017-10-04] MEDS: MELOXICAM 7.5 MG TABLET PO SCH (08:12)
[2017-10-04] MEDS: MULTIVITAMINS,THERAPEUTIC TABLET PO SCH (08:12)
[2017-10-04] MEDS: CLOPIDOGREL 75 MG TABLET PO SCH (08:12)
[2017-10-04] MEDS: DILTIAZEM HCL CD 120 MG CAP.SR.24H PO SCH (08:13)
[2017-10-04] MEDS: MEGESTROL ACETATE 20 MG TABLET PO SCH ×2 (08:13→17:37)
[2017-10-04] MEDS: ACIDOPHILUS/BULGARICUS CHEW TAB PO SCH ×2 (08:13→17:37)
[2017-10-04] MEDS: FLUTICASONE/VILANTEROL 1 EACH BLST.W.DEV INH SCH (08:15)
[2017-10-04 08:32] VITALS: BP 153/51
--- NOTE | 2017-10-04 09:32 | NUR ---
PT. IS ALERT AND ORIENTED X 3. NOT IN DISTRESS. NO COMPLAINT OF PAIN/DISCOMFORT. WILL CONTINUE MONITOR
--- NOTE | 2017-10-04 13:36 | NUR ---
PT. S/P ABT TREATMENT FOR UTI. NO DELAYED ADVERSE REACTION NOTED. WILL CONTINUE MONITOR
[2017-10-04] MEDS: MONTELUKAST SODIUM 10 MG TABLET PO SCH (17:37)
[2017-10-04] MEDS: RIVAROXABAN 15 MG TABLET PO SCH (17:49)
--- NOTE | 2017-10-04 19:30 | NUR ---
Patient stable at start of shift with no acute distress noted. Family at the bedside. A/Ox4 & able to make all needs known. Pertinent assessment completed. BP slightly elevated at start of shift at 159/58. Will administer BP med per MD order & re assess BP. Bed in low position, locked, x2 side rails up. Call light within reach. will continue to monitor through shift.
[2017-10-04] MEDS: ATORVASTATIN 20 MG TABLET PO SCH (20:17)
[2017-10-04] MEDS: CLONAZEPAM 0.5 MG TABLET PO SCH (20:17)
[2017-10-04] MEDS: LOSARTAN POTASSIUM 25 MG TABLET PO SCH (20:17)
[2017-10-04] MEDS: MIRTAZAPINE 15 MG TABLET PO SCH (20:17)
[2017-10-04 20:54] VITALS: BP 159/58
[2017-10-04] MEDS ORDERED: LOSARTAN POTASSIUM 50 MG TABLET PO SCH (21:00)
[2017-10-05 05:28] VITALS: BP 146/49
--- NOTE | 2017-10-05 06:00 | NUR ---
BP this AM at 146/49. Patient is asymptomatic and denies headache, pain, or light headedness. No acute distress noted through out the shift. All needs attended to promptly. Medications administered per MD order. Safety measures implemented. Call light within reach. Will endorse to day shift nurse.
[2017-10-05] MEDS: PANTOPRAZOLE SODIUM 40 MG TABLET.DR PO SCH (06:33)
[2017-10-05 08:27] VITALS: BP 150/48
[2017-10-05] MEDS: MEGESTROL ACETATE 20 MG TABLET PO SCH ×2 (08:38→17:17)
[2017-10-05] MEDS: MELOXICAM 7.5 MG TABLET PO SCH (08:39)
[2017-10-05] MEDS: ACIDOPHILUS/BULGARICUS CHEW TAB PO SCH ×2 (08:39→17:17)
[2017-10-05] MEDS: GABAPENTIN 100 MG CAPSULE PO SCH ×2 (08:39→17:17)
[2017-10-05] MEDS: LOSARTAN POTASSIUM 25 MG TABLET PO SCH ×2 (08:39→20:59)
[2017-10-05] MEDS: MULTIVITAMINS,THERAPEUTIC TABLET PO SCH (08:39)
[2017-10-05] MEDS: FLUTICASONE/VILANTEROL 1 EACH BLST.W.DEV INH SCH (10:32)
[2017-10-05] MEDS ORDERED: hydrALAZINE HCL 50 MG TABLET PO PRN (14:00)
--- NOTE | 2017-10-05 14:53 | NUR ---
SBAR report received this morning, board updated. Pt assessed, denies pain, no acute distress noted. VS WNL. Pt compliant with all routine medications. Plan for today discussed, including therapies. Pt seen by MD. No new orders. Bed in locked and lowest position with side rails up x2. Pt able to make needs known. Call light within reach. Will continue to monitor.
[2017-10-05] MEDS: MONTELUKAST SODIUM 10 MG TABLET PO SCH (17:17)
[2017-10-05] MEDS: RIVAROXABAN 15 MG TABLET PO SCH (17:20)
[2017-10-05 20:21] VITALS: BP 145/49
[2017-10-05] MEDS: MIRTAZAPINE 15 MG TABLET PO SCH (20:58)
[2017-10-05] MEDS: CLONAZEPAM 0.5 MG TABLET PO SCH (20:58)
[2017-10-05] MEDS: ATORVASTATIN 20 MG TABLET PO SCH (20:58)
[2017-10-06] MEDS: PANTOPRAZOLE SODIUM 40 MG TABLET.DR PO SCH (06:15)
[2017-10-06 06:23] VITALS: BP 135/59
--- NOTE | 2017-10-06 06:29 | NUR ---
slept most of the shift no acute distress noted. needs attended. tolerated po meds well. denies any pain nor any discomfort. ambulates to the BR with walker with supervision. voiding well. kept comfortable. fall precautions maintained.
--- NOTE | 2017-10-06 07:10 | NUR ---
RECEIVED REPORT FROM NEIGHBORHOOD WORKER NURSE, PATIENT IN BED AWAKE, NO DISTRESS NOTED AT THIS TIME, BED IN LOW POSITION, SIDE RAILS UP X2. BED ALARM ON.
[2017-10-06 07:28] VITALS: BP 165/64
[2017-10-06] MEDS: MELOXICAM 7.5 MG TABLET PO SCH (08:31)
[2017-10-06] MEDS: FLUTICASONE/VILANTEROL 1 EACH BLST.W.DEV INH SCH (08:31)
[2017-10-06] MEDS: MEGESTROL ACETATE 20 MG TABLET PO SCH ×2 (08:31→16:49)
[2017-10-06] MEDS: ACIDOPHILUS/BULGARICUS CHEW TAB PO SCH ×2 (08:31→16:49)
[2017-10-06] MEDS: GABAPENTIN 100 MG CAPSULE PO SCH ×2 (08:32→16:49)
[2017-10-06] MEDS: MULTIVITAMINS,THERAPEUTIC TABLET PO SCH (08:32)
[2017-10-06] MEDS: LOSARTAN POTASSIUM 25 MG TABLET PO SCH ×2 (08:33→20:10)
--- NOTE | 2017-10-06 12:58 | NUR ---
REPORT GIVEN TO CHARGE NURSE. PATIENT UP IN BED, NO DISTRESS NOTED, CALL LIGHT IN REACH.
--- NOTE | 2017-10-06 13:05 | NUR ---
Received patient,resting in bed. Denies any pain. Not in any distress.. Encouraged to call for needs. Call light within reach, bed in low locked position.
[2017-10-06 15:20] VITALS: BP 145/51
[2017-10-06] MEDS: MONTELUKAST SODIUM 10 MG TABLET PO SCH (17:24)
[2017-10-06] MEDS: RIVAROXABAN 15 MG TABLET PO SCH (17:25)
--- NOTE | 2017-10-06 18:42 | NUR ---
Resting in bed, no complaints of discomfort. Needs attended to promptly. Call light within reach.
[2017-10-06] MEDS: ATORVASTATIN 20 MG TABLET PO SCH (20:07)
[2017-10-06] MEDS: CLONAZEPAM 0.5 MG TABLET PO SCH (20:07)
[2017-10-06] MEDS: MIRTAZAPINE 15 MG TABLET PO SCH (20:07)
[2017-10-06 20:27] VITALS: BP 146/49
--- NOTE | 2017-10-07 04:22 | NUR ---
slept well most of the shift. needs attended. no acute distress noted. denies any pain nor any discomfort. fall precautions maintained.call rivas within reach. compliant with the care. moderate assist with ADL's.
[2017-10-07] MEDS: PANTOPRAZOLE SODIUM 40 MG TABLET.DR PO SCH (06:13)
[2017-10-07 06:32] VITALS: BP 178/52
[2017-10-07 08:12] VITALS: BP 137/52
[2017-10-07] MEDS: MELOXICAM 7.5 MG TABLET PO SCH (08:25)
[2017-10-07] MEDS: ACIDOPHILUS/BULGARICUS CHEW TAB PO SCH ×2 (08:26→17:04)
[2017-10-07] MEDS: MEGESTROL ACETATE 20 MG TABLET PO SCH ×2 (08:26→17:24)
[2017-10-07] MEDS: GABAPENTIN 100 MG CAPSULE PO SCH ×2 (08:26→17:04)
[2017-10-07] MEDS: LOSARTAN POTASSIUM 25 MG TABLET PO SCH ×2 (08:26→21:31)
[2017-10-07] MEDS: MULTIVITAMINS,THERAPEUTIC TABLET PO SCH (08:26)
[2017-10-07] MEDS: FLUTICASONE/VILANTEROL 1 EACH BLST.W.DEV INH SCH (08:27)
--- NOTE | 2017-10-07 08:27 | NUR ---
PT/ RECEIVED AWAKE, ALERT AND ORIENTEDX3. REFUSE BREATHING TREATMENT BREO DESPITE OF ENCOURAGEMENT AND EDUCATION. VERBALIZE SHE DONT NEED IT. NOT IN DISTRESS. PULSE OXY-96%. WILL CONTINUE MONITOR
[2017-10-07 15:57] VITALS: BP 134/57
[2017-10-07] MEDS: MONTELUKAST SODIUM 10 MG TABLET PO SCH (17:04)
[2017-10-07] MEDS: RIVAROXABAN 15 MG TABLET PO SCH (17:05)
[2017-10-07 19:30] VITALS: BP 147/51
--- NOTE | 2017-10-07 19:30 | NUR ---
Patient received awake & alert, oriented x2-3 with no acute distress noted. Family at the bedside. Pertinent assessment completed at start of shift. BP at 151/52 & HR at 50 beginning of shift. Patient denies pain, SOB, or feelings of light headedness. Will continue to monitor HR through shift. Bed in low position & locked. Encouraged patient to use call light. Will continue to monitor through shift.
[2017-10-07] MEDS: ATORVASTATIN 20 MG TABLET PO SCH (21:29)
[2017-10-07] MEDS: MIRTAZAPINE 15 MG TABLET PO SCH (21:29)
[2017-10-07] MEDS: CLONAZEPAM 0.5 MG TABLET PO SCH (21:30)
[2017-10-08] MEDS: PANTOPRAZOLE SODIUM 40 MG TABLET.DR PO SCH (06:18)
[2017-10-08 06:23] VITALS: BP 153/49
--- NOTE | 2017-10-08 06:24 | NUR ---
Patient stable through the shift with no acute distress. Slept well through out the night. Patient SBP continues to be elevated at 153 & DBP at 49. HR remains at 50. Patient is asymptomatic denies any pain, SOB, headache, or feelings of light headedness. Will endorse to day shift nurse to f/u with Sales Support Engineer. All needs attended to promptly. Medications administered per MD order. Will endorse to day shift.
[2017-10-08 07:58] VITALS: BP 150/88
--- NOTE | 2017-10-08 08:05 | NUR ---
Received patient, awake, alert x4. Resting comfortably in bed. Not in any form of distress. Call light within reach. Will continue to monitor.
[2017-10-08] MEDS: MELOXICAM 7.5 MG TABLET PO SCH (09:19)
[2017-10-08] MEDS: MEGESTROL ACETATE 20 MG TABLET PO SCH ×2 (09:20→17:14)
[2017-10-08] MEDS: FLUTICASONE/VILANTEROL 1 EACH BLST.W.DEV INH SCH (09:20)
[2017-10-08] MEDS: LOSARTAN POTASSIUM 25 MG TABLET PO SCH ×2 (09:21→20:14)
[2017-10-08] MEDS: ACIDOPHILUS/BULGARICUS CHEW TAB PO SCH ×2 (09:21→17:14)
[2017-10-08] MEDS: MULTIVITAMINS,THERAPEUTIC TABLET PO SCH (09:21)
[2017-10-08] MEDS: GABAPENTIN 100 MG CAPSULE PO SCH ×2 (09:21→17:14)
--- NOTE | 2017-10-08 09:57 | NUR ---
Up with occupational therapy tolerating well. Denies any pain
[2017-10-08 15:18] VITALS: BP 150/41
[2017-10-08] MEDS: MONTELUKAST SODIUM 10 MG TABLET PO SCH (17:15)
[2017-10-08] MEDS: RIVAROXABAN 15 MG TABLET PO SCH (17:15)
--- NOTE | 2017-10-08 17:30 | NUR ---
With family at bedside. No complaints of discomfort. Needs attended to promptly. Call light within reach
--- NOTE | 2017-10-08 19:53 | NUR ---
Received pt resting comfortably in bed. AAO x4. No acute distress noted. No c/o pain or discomfort. Safety measures maintained. Call light and personal belongings within reach. Will continue to monitor.
[2017-10-08 20:01] VITALS: BP 140/45
[2017-10-08] MEDS: MIRTAZAPINE 15 MG TABLET PO SCH (20:13)
[2017-10-08] MEDS: ATORVASTATIN 20 MG TABLET PO SCH (20:13)
[2017-10-08] MEDS: CLONAZEPAM 0.5 MG TABLET PO SCH (20:13)
[2017-10-08 21:00] VITALS: BP 132/46
[2017-10-09 05:00] VITALS: BP 145/52
[2017-10-09] MEDS: PANTOPRAZOLE SODIUM 40 MG TABLET.DR PO SCH (06:18)
[2017-10-09] MEDS: MULTIVITAMINS,THERAPEUTIC TABLET PO SCH (08:44)
[2017-10-09] MEDS: ACIDOPHILUS/BULGARICUS CHEW TAB PO SCH ×2 (08:44→17:47)
[2017-10-09] MEDS: GABAPENTIN 100 MG CAPSULE PO SCH ×2 (08:44→17:47)
[2017-10-09] MEDS: MELOXICAM 7.5 MG TABLET PO SCH (08:44)
[2017-10-09] MEDS: LOSARTAN POTASSIUM 25 MG TABLET PO SCH ×2 (08:45→20:19)
[2017-10-09] MEDS: FLUTICASONE/VILANTEROL 1 EACH BLST.W.DEV INH SCH (08:45)
[2017-10-09] MEDS: MEGESTROL ACETATE 20 MG TABLET PO SCH ×2 (08:45→17:47)
[2017-10-09] MEDS: MONTELUKAST SODIUM 10 MG TABLET PO SCH (17:47)
[2017-10-09] MEDS: RIVAROXABAN 15 MG TABLET PO SCH (17:50)
--- NOTE | 2017-10-09 20:00 | NUR ---
Received pt's on bed rest comfortably,denied of pain or any discomfort.pt's able to ambulate to bathroom.[id number].updated the plan of care to pt;she verbalized understanding and cooperative.per pt stated that "I'm going home soon".kept comfort.kept call-light within reach.
[2017-10-09 20:15] VITALS: BP 135/54
[2017-10-09] MEDS: ATORVASTATIN 20 MG TABLET PO SCH (20:18)
[2017-10-09] MEDS: MIRTAZAPINE 15 MG TABLET PO SCH (20:18)
[2017-10-09] MEDS: CLONAZEPAM 0.5 MG TABLET PO SCH (20:18)
--- NOTE | 2017-10-10 06:00 | NUR ---
PT'S COMFORTABLE ON BED;DENIED OF PAIN OR ANY DISCOMFORT.PT'S ABLE TO PERFORM ADL'S HERSELF,STEADY GAIT WHILE GOING TO BATHROOM.NO DISTRESS NOTED IN THE SHIFT,PT REMAINED FREE FROM INJURY.HER NEED'S MET.
[2017-10-10] MEDS: PANTOPRAZOLE SODIUM 40 MG TABLET.DR PO SCH (06:20)
[2017-10-10] MEDS: GABAPENTIN 100 MG CAPSULE PO SCH ×2 (07:55→16:40)
[2017-10-10] MEDS: MEGESTROL ACETATE 20 MG TABLET PO SCH ×2 (07:55→16:39)
[2017-10-10] MEDS: FLUTICASONE/VILANTEROL 1 EACH BLST.W.DEV INH SCH (07:56)
[2017-10-10] MEDS: MULTIVITAMINS,THERAPEUTIC TABLET PO SCH (07:56)
[2017-10-10] MEDS: ACIDOPHILUS/BULGARICUS CHEW TAB PO SCH ×2 (07:56→16:39)
[2017-10-10] MEDS: MELOXICAM 7.5 MG TABLET PO SCH (07:56)
[2017-10-10] MEDS: LOSARTAN POTASSIUM 25 MG TABLET PO SCH ×2 (07:57→20:41)
--- NOTE | 2017-10-10 10:59 | NUR ---
INTERDISCIPLINARY TEAM CONFERENCE
[2017-10-10 16:25] VITALS: BP 135/53
[2017-10-10] MEDS: MONTELUKAST SODIUM 10 MG TABLET PO SCH (16:39)
[2017-10-10] MEDS: RIVAROXABAN 15 MG TABLET PO SCH (16:43)
--- NOTE | 2017-10-10 18:19 | NUR ---
STROKE TEACHING DONE TO PT AND GRANDSON. PAMPHLET LEFT AT BEDSIDE . DISCUSSED S/S, WARNING SIGNS AND PREVENTIONS AND TO CALL IF A STROKE IS SUSPECTED. PT AND FAMILY MEMBER VERBALIZED UNDERSTANDING.
[2017-10-10 19:28] VITALS: BP 146/53
[2017-10-10] MEDS: ATORVASTATIN 20 MG TABLET PO SCH (20:40)
[2017-10-10] MEDS: CLONAZEPAM 0.5 MG TABLET PO SCH (20:40)
[2017-10-10] MEDS: MIRTAZAPINE 15 MG TABLET PO SCH (20:40)
--- NOTE | 2017-10-11 04:55 | NUR ---
Slept at short intervals. needs attended. kept comfortable. vital signs stable. voiding well. denies any pain nor any discomfort. well monitor patient. fall precautions maintained.
[2017-10-11] MEDS: PANTOPRAZOLE SODIUM 40 MG TABLET.DR PO SCH (06:00)
[2017-10-11 06:48] VITALS: BP 145/52
[2017-10-11] MEDS: MULTIVITAMINS,THERAPEUTIC TABLET PO SCH (08:48)
[2017-10-11] MEDS: FLUTICASONE/VILANTEROL 1 EACH BLST.W.DEV INH SCH (08:48)
[2017-10-11] MEDS: GABAPENTIN 100 MG CAPSULE PO SCH ×2 (08:48→16:13)
[2017-10-11] MEDS: MELOXICAM 7.5 MG TABLET PO SCH (08:48)
[2017-10-11] MEDS: ACIDOPHILUS/BULGARICUS CHEW TAB PO SCH ×2 (08:48→16:13)
[2017-10-11] MEDS: MEGESTROL ACETATE 20 MG TABLET PO SCH ×2 (08:48→16:13)
[2017-10-11] MEDS: LOSARTAN POTASSIUM 25 MG TABLET PO SCH ×2 (08:49→20:32)
--- NOTE | 2017-10-11 11:28 | NUR ---
SBAR report received, board updated. Pt assessed, no acute distress noted. Pt assisted to restroom. Compliant with all routinely scheduled medications. VS taken. All safety and comfort needs met. Pt ate 100% for breakfast sitting up right at edge of bed. Bed in locked and lowest position. Call light placed within reach. Will continue to monitor.
[2017-10-11] MEDS: MONTELUKAST SODIUM 10 MG TABLET PO SCH (17:01)
[2017-10-11] MEDS: RIVAROXABAN 15 MG TABLET PO SCH (17:03)
--- NOTE | 2017-10-11 18:53 | NUR ---
Pt reassessed, VS taken and WNL. All needs attended to promptly this shift. No changes to status. Call light placed within reach. Pt clean and dry. Will continue to monitor and endorse to oncoming overnight caregiver.
--- NOTE | 2017-10-11 19:49 | NUR ---
resting in bed. alert and orientedx4 no acute distress noted. vital signs taken and recorded. VSS WNL. in good spirits. denies any pain nor any discomfort. making needs known. fall precautions maintained. siderails up for safety. call rivas within reach. voiding without any difficulty. will monitor patient. compliant with meds.
[2017-10-11 19:59] VITALS: BP 144/52
[2017-10-11] MEDS: ATORVASTATIN 20 MG TABLET PO SCH (20:31)
[2017-10-11] MEDS: CLONAZEPAM 0.5 MG TABLET PO SCH (20:31)
[2017-10-11] MEDS: MIRTAZAPINE 15 MG TABLET PO SCH (20:31)
[2017-10-12] MEDS: PANTOPRAZOLE SODIUM 40 MG TABLET.DR PO SCH (06:13)
--- NOTE | 2017-10-12 06:15 | NUR ---
slept well most of the shift. no acute distress noted. denies any pain nor any discomfort. voiding freely.
[2017-10-12] MEDS: MEGESTROL ACETATE 20 MG TABLET PO SCH (08:02)
[2017-10-12] MEDS: GABAPENTIN 100 MG CAPSULE PO SCH (08:02)
[2017-10-12] MEDS: ACIDOPHILUS/BULGARICUS CHEW TAB PO SCH (08:02)
[2017-10-12] MEDS: MELOXICAM 7.5 MG TABLET PO SCH (08:02)
[2017-10-12] MEDS: MULTIVITAMINS,THERAPEUTIC TABLET PO SCH (08:02)
[2017-10-12 08:03] VITALS: BP 148/50
[2017-10-12] MEDS: LOSARTAN POTASSIUM 25 MG TABLET PO SCH (08:03)
[2017-10-12] MEDS: FLUTICASONE/VILANTEROL 1 EACH BLST.W.DEV INH SCH (08:06)
--- NOTE | 2017-10-12 09:47 | NUR ---
SBAR report received, board updated. Pt assessed, denies pain and discomfort. Compliant with all routinely scheduled medication administration and therapies as planned. Plan of care discussed regarding pending discharge later this afternoon. Bed in locked and lowest position, with side rails up x2. Call light placed within reach. Will continue to monitor.
--- NOTE | 2017-10-12 14:15 | NUR ---
Discharge orders received. Pt VS taken 153/54, 51, 100% RA, 97.8, and RR 14, denies pain. Discharge paperwork and education material completed, reviewed, signed, originals given to Pt, and copies placed in chart. Follow up plans to attend appointment as scheduled with [facility] on 10/18[facility]17 at 1pm discussed. Belongings accounted for. All discharge concerns addressed, all other needs attended to. Medications Reconciliation and Rx faxed to Pt requested pharmacy. No skin integrity issues or wounds to photograph. ID band removed. Pt safely escorted out of hospital via wheelchair to private car with her sister driving. Will remove Pt from computer system shortly.
== END 2017-10-12 14:00 | disposition home health service (06) | DRG 57 ==
LOC: UNDOADMIN 11:01
PROVIDERS: ADMIT Physical Medicine & Rehabilitation Pain Medicine; ATTEND Physical Medicine & Rehabilitation Pain Medicine
DX: I69.351 Hemiplegia and hemiparesis following cerebral infarction affecting right dominant side (principal); J84.9 Interstitial pulmonary disease, unspecified; E44.0 Moderate protein-calorie malnutrition; D68.59 Other primary thrombophilia; I48.0 Paroxysmal atrial fibrillation; F32.9 Major depressive disorder, single episode, unspecified; E78.5 Hyperlipidemia, unspecified; F41.9 Anxiety disorder, unspecified; H92.01 Otalgia, right ear; N39.0 Urinary tract infection, site not specified; I10 Essential (primary) hypertension; I70.0 Atherosclerosis of aorta; I67.2 Cerebral atherosclerosis; R26.9 Unspecified abnormalities of gait and mobility; R63.0 Anorexia; Z68.20 Body mass index [BMI] 20.0-20.9, adult; R00.1 Bradycardia, unspecified; Z88.8 Allergy status to other drugs, medicaments and biological substances
CPT/HCPCS: 36415; 83735; 84100; 85025; 92523; 92610; 97110; 97112; 97116; 97165; 97530; 97535; A4663; J0696; J7060

== ENCOUNTER 2019-05-21 11:11 | Emergency (ER) | payer MEDICARE, OTHER ==
[~2019-05-21] VITALS: Ht 167.6 cm; Wt 56.7 kg
[~2019-05-21 11:11] MED LIST changes: -CEFT1VIA15 IV; -MECL-102 PO; +MECL-159 PO; +SIMV-49 PO; -SIMV40TA5 PO
[2019-05-21] MEDS ORDERED: CEFU500T66 PO (11:43)
[2019-05-21] MEDS ORDERED: LOSA50TA39 PO (11:43)
[2019-05-21] MEDS ORDERED: DILT-32 PO (11:43)
[2019-05-21] MEDS ORDERED: MIRT15TA7 PO (11:43)
[2019-05-21] MEDS ORDERED: PRAM0.129 PO (11:43)
--- NOTE | 2019-05-21 11:45 | NUR ---
PATIENT WAS MSE BY DR DAVIS IN ROOM 04B. PATIENT A & O X4. FAMILY AT BEDSIDE.
[2019-05-21 12:11] LABS: BASOPHILS % (AUTO) 0.7 % (0.0-2.0); EOSINOPHILS % (AUTO) 0.4 % (0.0-7.0); HEMATOCRIT 42.7 % (31.2-41.9); LYMPHOCYTES # (AUTO) 0.7 K/uL (20.0-40.0); LYMPHOCYTES % (AUTO) 12.2 % (20.5-51.5); MEAN CORPUSCULAR HGB CONC 33 g/dL (32.3-35.6); MEAN CORPUSCULAR VOLUME 88.7 fL (75.5-95.3); MONOCYTES # (AUTO) 0.6 K/uL (2.0-10.0); MONOCYTES % (AUTO) 9.9 % (0.0-11.0); NEUTROPHILS # (AUTO) 4.5 K/uL (1.8-8.9); NEUTROPHILS % (AUTO) 76.8 % (38.5-71.5); PLATELET COUNT (AUTO) 182 K/uL (179-408); RED BLOOD CELL COUNT(AUTO) 4.81 MIL/uL (3.63-4.92); WHITE BLOOD COUNT (AUTO) 5.9 K/uL (3.8-11.8)
[2019-05-21 12:22] LABS: CREATININE 1.3 mg/dL (0.6-1.3); POTASSIUM 3.5 mmol/L (3.5-5.1)
[2019-05-21 12:27] LABS: BILIRUBIN,DIRECT 0.1 mg/dL (0.0-0.2); BILIRUBIN,TOTAL 0.5 mg/dL (0.2-1.0); TOTAL PROTEIN, SERUM 7.9 g/dL (6.4-8.2)
--- NOTE | 2019-05-21 14:10 | NUR ---
patient discharged to home in stable condition. written and verbal after care instructions given. patient and daughter verbalized understanding of instructions.
[2019-05-21 14:21] VITALS: BP 163/60
== END 2019-05-21 14:23 | disposition home or self-care (01) ==
LOC: ER 11:11
DX: R05 Cough (principal); I48.91 Unspecified atrial fibrillation; J45.909 Unspecified asthma, uncomplicated; I10 Essential (primary) hypertension; F41.9 Anxiety disorder, unspecified; Z88.8 Allergy status to other drugs, medicaments and biological substances; Z79.899 Other long term (current) drug therapy; Z79.01 Long term (current) use of anticoagulants
CPT/HCPCS: 36415; 70030-TC; 71045; 85025; 87400; 93005; A4663

== ENCOUNTER 2020-01-06 17:14 | Emergency (ER) | payer MEDICARE, OTHER ==
[~2020-01-06] VITALS: Ht 167.6 cm; Wt 54.4 kg
[~2020-01-06 17:14] MED LIST changes: +CEFU500T66 PO; +LOSA50TA39 PO; -MEGE20TA PO; +MEGE20TA3 PO; +MULT-594 PO; -MULT1TAB73 PO; +PRAM0.129 PO
--- NOTE | 2020-01-06 17:20 | NUR ---
Patient ambulating with steady gait. A&O x4. c/o palpitations that started this morning and getting worse today. Farsi speaking, Farsi speaking nurse at bedside able to translate. Denies any CP / Dizziness / Blurred vision. Speech is clear and able to make needs known / follow commands. Breathing even and unlabored. no cough noted.
--- NOTE | 2020-01-06 17:25 | NUR ---
Dr. Valenzuela at bedside for MSE
[2020-01-06] MEDS ORDERED: RIVA10TA PO (17:39)
[2020-01-06] MEDS ORDERED: METO25TA6 PO (17:39)
[2020-01-06 17:45] LABS: BASOPHILS # (AUTO) 0.1 K/uL (0.0-8.0); BASOPHILS % (AUTO) 0.8 % (0.0-2.0); EOSINOPHILS # (AUTO) 0.2 K/uL (0.0-0.7); EOSINOPHILS % (AUTO) 2.2 % (0.0-7.0); HEMATOCRIT 44.2 % (31.2-41.9); HEMOGLOBIN 14.3 g/dL (10.9-14.3); LYMPHOCYTES # (AUTO) 2.4 K/uL (20.0-40.0); MEAN CORPUSCULAR HEMOGLOBIN 28.7 uug (24.7-32.8); MEAN CORPUSCULAR HGB CONC 32 g/dL (32.3-35.6); MEAN CORPUSCULAR VOLUME 88.6 fL (75.5-95.3); MONOCYTES # (AUTO) 0.8 K/uL (2.0-10.0); MONOCYTES % (AUTO) 9.8 % (0.0-11.0); NEUTROPHILS % (AUTO) 59.2 % (38.5-71.5); PLATELET COUNT (AUTO) 261 K/uL (179-408); RED BLOOD CELL COUNT(AUTO) 4.99 MIL/uL (3.63-4.92); WHITE BLOOD COUNT (AUTO) 8.5 K/uL (3.8-11.8)
[2020-01-06] MEDS ORDERED: IV NORMAL SALINE 500 ML BAG IV ONE (17:45)
[2020-01-06 18:13] LABS: CARBON DIOXIDE 22 mmol/L (21-32); CHLORIDE 103 mmol/L (98-107); CREATININE 1.4 mg/dL (0.6-1.3); GLUCOSE 132 mg/dL (74-106); UREA NITROGEN, BLOOD 22 mg/dL (7-18)
[2020-01-06 18:17] LABS: ALANINE AMINOTRANSFERASE 39 U/L (14-59); ALKALINE PHOSPHATASE 104 U/L (50-136); ASPARTATE AMINOTRANSFERASE 29 U/L (15-37); BILIRUBIN,DIRECT 0.1 mg/dL (0.0-0.2); BILIRUBIN,TOTAL 0.3 mg/dL (0.2-1.0); TOTAL PROTEIN, SERUM 8.3 g/dL (6.4-8.2)
--- NOTE | 2020-01-06 18:20 | NUR ---
IV removed. Catheter intact and site benign. Pressure and 4x4 gauze applied to site. No bleeding noted. Patient discharged to home in stable condition. Written and verbal after care instructions given. Patient verbalizes understanding of instructions. Stressed follow up or return to ER for worsening s/s. Patient ambulated with steady gait. NAD noted. Patient states "i feel better" per supervising librarian at bedside.
[2020-01-06 18:31] VITALS: BP 150/57
[2020-01-10] MEDS ORDERED: AMLO5TAB4 PO (14:52)
[2020-01-10] MEDS ORDERED: RIVA10TA PO (14:52)
== END 2020-01-06 18:20 | disposition home or self-care (01) ==
LOC: ER 17:14
DX: R00.2 Palpitations (principal); R00.1 Bradycardia, unspecified; J45.909 Unspecified asthma, uncomplicated; F41.9 Anxiety disorder, unspecified; Z79.02 Long term (current) use of antithrombotics/antiplatelets; Z79.899 Other long term (current) drug therapy; I10 Essential (primary) hypertension
CPT/HCPCS: 36415; 70030-TC; 71045; 85025; 85730; 93005; A4663; J7040

== ENCOUNTER 2020-01-08 11:50 | Inpatient (IN) | payer MEDICARE, OTHER ==
[~2020-01-08] VITALS: Ht 167.6 cm; Wt 54.4 kg
[~2020-01-08 11:50] MED LIST changes: +METO25TA6 PO; +RIVA10TA PO
[2020-01-08 12:24] LABS: BASOPHILS # (AUTO) 0.1 K/uL (0.0-8.0); BASOPHILS % (AUTO) 0.8 % (0.0-2.0); EOSINOPHILS # (AUTO) 0.1 K/uL (0.0-0.7); EOSINOPHILS % (AUTO) 0.8 % (0.0-7.0); HEMATOCRIT 40.6 % (31.2-41.9); HEMOGLOBIN 13.2 g/dL (10.9-14.3); LYMPHOCYTES # (AUTO) 1.5 K/uL (20.0-40.0); LYMPHOCYTES % (AUTO) 16.2 % (20.5-51.5); MEAN CORPUSCULAR HEMOGLOBIN 28.7 uug (24.7-32.8); MEAN CORPUSCULAR HGB CONC 32 g/dL (32.3-35.6); MEAN CORPUSCULAR VOLUME 88.5 fL (75.5-95.3); MONOCYTES # (AUTO) 0.8 K/uL (2.0-10.0); MONOCYTES % (AUTO) 8.1 % (0.0-11.0); NEUTROPHILS % (AUTO) 74.1 % (38.5-71.5); PLATELET COUNT (AUTO) 232 K/uL (179-408); RED BLOOD CELL COUNT(AUTO) 4.59 MIL/uL (3.63-4.92); WHITE BLOOD COUNT (AUTO) 9.4 K/uL (3.8-11.8)
[2020-01-08 12:33] LABS: CREATININE 1.3 mg/dL (0.6-1.3); POTASSIUM 3.5 mmol/L (3.5-5.1)
[2020-01-08 12:45] LABS: BILIRUBIN,DIRECT 0.1 mg/dL (0.0-0.2); BILIRUBIN,TOTAL 0.4 mg/dL (0.2-1.0); TOTAL PROTEIN, SERUM 7.4 g/dL (6.4-8.2)
[2020-01-08 12:48] LABS: *BILIRUBIN,URIN NEGATIVE (NEGATIVE); *BLOOD, URINE NEGATIVE (NEGATIVE); *CLARITY,URINE CLEAR (CLEAR); *COLOR,URINE LIGHT YELLOW (YELLOW); *KETONES,URINE NEGATIVE (NEGATIVE); *UROBILINOGEN,URINE 0.2 E.U./dl (NORMAL); LEUKOCYTE ESTERASE ,URINE NEGATIVE (NEGATIVE); NITRITE, URINE NEGATIVE (NEGATIVE); UGLUCOSE NEGATIVE (NEGATIVE)
--- NOTE | 2020-01-08 12:59 | NUR ---
Called [facility] for panel placement
--- NOTE | 2020-01-08 13:22 | NUR ---
pt daughter and sister in lobby, aware of pt being admitted.
--- NOTE | 2020-01-08 13:22 | NUR ---
pt eating hospital tray with good apetite.
[2020-01-08] MEDS ORDERED: PRAM0.129 PO (13:30)
[2020-01-08] MEDS ORDERED: MIRT15TA7 PO (13:30)
--- NOTE | 2020-01-08 13:39 | NUR ---
er md aware of vs. will continue to monitor the pt. pt deneis cp, headache or dizziness at this time.
--- NOTE | 2020-01-08 14:35 | NUR ---
pt transfered to floor in stable condition. pt remained calm the whole er stay. pt still co "hearing her heart through ears", but denies cp, n/v or dizziness at this time. pt was on ra saturating 99% the whole er stay.
--- NOTE | 2020-01-08 15:27 | NUR ---
Received patient around 3pm from ER via wheelchair from ER in stable condition. Denies pain/discomfort. Applied EKG electrode for monitoring. Patient skin intact. Patient right forearm heplock G20, intact and patent. Patient for covid test. MD aware. will continue monitor
--- NOTE | 2020-01-08 18:21 | NUR ---
Patient hospitalist WILLIAM Aguilar informed by med recon and aware. will endorse
[2020-01-08] MEDS ORDERED: Z GUARD REMEDY PASTE 57 GM TUBE TOP PRN (18:45)
[2020-01-08] MEDS ORDERED: ONDANSETRON 4 MG/2 ML VIAL IV PRN (18:45)
[2020-01-08] MEDS ORDERED: ACETAMINOPHEN 325 MG TABLET PO PRN (18:45)
[2020-01-08] MEDS ORDERED: ENOXAPARIN SODIUM 30 MG/0.3 ML DISP.SYRIN SUBCUT SCH (19:30)
[2020-01-08 20:15] VITALS: BP 148/82
[2020-01-08] MEDS ORDERED: LOSARTAN POTASSIUM 50 MG TABLET PO SCH (20:30)
[2020-01-08] MEDS ORDERED: DILTIAZEM HCL CD 120 MG CAP.SR.24H PO SCH (20:30)
[2020-01-08] MEDS ORDERED: MIRTAZAPINE 15 MG TABLET PO SCH (21:00)
--- NOTE | 2020-01-08 21:00 | NUR ---
spoke to pt's son, Nkechijose; pt would like cardio to call him at [phone] for plan of care.
--- NOTE | 2020-01-09 05:33 | NUR ---
Pt rested well in between care; initially pt is SOB and anxious; reassurance given and paraprofessional interpreter ready through [facility]; pt is in and out atrial fib SVR to SR/SB with PACs; will endorse that pt is on Xarelto at home and would ask MD if ok to continue; denies any chest pain; slept well on O2 for comfort; needs attended; continue to monitor; continue plan of care.
[2020-01-09 07:00] LABS: BASOPHILS # (AUTO) 0.1 K/uL (0.0-8.0); BASOPHILS % (AUTO) 0.9 % (0.0-2.0); EOSINOPHILS # (AUTO) 0.2 K/uL (0.0-0.7); EOSINOPHILS % (AUTO) 2.6 % (0.0-7.0); HEMATOCRIT 39.2 % (31.2-41.9); HEMOGLOBIN 12.9 g/dL (10.9-14.3); LYMPHOCYTES # (AUTO) 1.9 K/uL (20.0-40.0); LYMPHOCYTES % (AUTO) 24.4 % (20.5-51.5); MEAN CORPUSCULAR HEMOGLOBIN 28.9 uug (24.7-32.8); MEAN CORPUSCULAR HGB CONC 33 g/dL (32.3-35.6); MEAN CORPUSCULAR VOLUME 88.1 fL (75.5-95.3); MONOCYTES # (AUTO) 0.7 K/uL (2.0-10.0); MONOCYTES % (AUTO) 8.5 % (0.0-11.0); NEUTROPHILS % (AUTO) 63.6 % (38.5-71.5); PLATELET COUNT (AUTO) 227 K/uL (179-408); RED BLOOD CELL COUNT(AUTO) 4.45 MIL/uL (3.63-4.92); WHITE BLOOD COUNT (AUTO) 7.9 K/uL (3.8-11.8)
[2020-01-09 07:19] LABS: BILIRUBIN,TOTAL 0.5 mg/dL (0.2-1.0); CREATININE 1.2 mg/dL (0.6-1.3); MAGNESIUM 2.1 mg/dL (1.8-2.4); PHOSPHOROUS 3.7 mg/dL (2.5-4.9); POTASSIUM 4.1 mmol/L (3.5-5.1); TOTAL PROTEIN, SERUM 6.7 g/dL (6.4-8.2)
--- NOTE | 2020-01-09 07:30 | NUR ---
IN BED AWAKE ALERT AND ORIENTED X3, NO SS OF PAIN OR DISTRESS. SR ON MONITOR
[2020-01-09] MEDS: ASPIRIN EC 81 MG TABLET.DR PO SCH (08:11)
[2020-01-09] MEDS: LOSARTAN POTASSIUM 50 MG TABLET PO SCH ×2 (08:11→16:50)
[2020-01-09 08:37] LABS: THYROID STIMULATING HORMONE 0.974 mIU/mL (0.358-3.740)
[2020-01-09] MEDS ORDERED: DILTIAZEM HCL CD 120 MG CAP.SR.24H PO SCH (09:00)
[2020-01-09 11:27] VITALS: BP 167/56
--- NOTE | 2020-01-09 12:00 | NUR ---
SEEN BY DR LOMBARDO, SEE NOTES
[2020-01-09 15:15] VITALS: BP 168/55
[2020-01-09 15:17] VITALS: BP 151/60
[2020-01-09 15:18] VITALS: BP 151/67
[2020-01-09 15:36] VITALS: BP 168/55
[2020-01-09] MEDS: RIVAROXABAN 15 MG TABLET PO SCH (16:50)
[2020-01-09] MEDS: MIRTAZAPINE 15 MG TABLET PO SCH (16:50)
--- NOTE | 2020-01-09 18:27 | NUR ---
REMAINS SR ON MONITOR, DENIES JACKSON OR DIZZINESS. CLOSELY MONITORED FOR HIGH BP. PLS SEE ORTHOSTATIC BP
[2020-01-09 20:09] VITALS: BP 171/57
[2020-01-10 00:09] VITALS: BP 172/65
[2020-01-10 04:12] VITALS: BP 150/56
--- NOTE | 2020-01-10 07:30 | NUR ---
AWAKE ALERT AND ORIENTED X3. DENIES ANY PAIN OR SOB. BLOOD PRESSURE REMAINS ELEVATED WILL FOLLOW-UP WITH MD.
[2020-01-10] MEDS: LOSARTAN POTASSIUM 50 MG TABLET PO SCH ×2 (08:20→16:06)
[2020-01-10] MEDS: ASPIRIN EC 81 MG TABLET.DR PO SCH (08:20)
[2020-01-10] MEDS ORDERED: AMLODIPINE 5 MG TABLET PO SCH (09:00)
--- NOTE | 2020-01-10 09:00 | NUR ---
SEEN BY DR LOMBARDO FOR FOLLOW-UP SEE NOTES
[2020-01-10 11:45] VITALS: BP 105/55
--- NOTE | 2020-01-10 13:30 | NUR ---
SEEN BY DR HANNA WITH DISCHARGE ORDER TO HOME. WILL NOTIFY COMMERCIAL BAKER HELPER AND FAMILY
[2020-01-10] MEDS ORDERED: RIVA10TA PO (14:52)
[2020-01-10] MEDS ORDERED: AMLO5TAB4 PO (14:52)
[2020-01-10 15:39] VITALS: BP 149/61
--- NOTE | 2020-01-10 15:45 | NUR ---
called pt's son Dr. Meredith and informed of discharge, called pt's sister Mani and coming to pick her up at 1700, pt informed
[2020-01-10 16:06] VITALS: BP 149/61
[2020-01-10] MEDS: RIVAROXABAN 15 MG TABLET PO SCH (16:06)
[2020-01-10] MEDS: MIRTAZAPINE 15 MG TABLET PO SCH (16:07)
--- NOTE | 2020-01-10 16:35 | NUR ---
DISCHARGED HOME STABLE WITH RX AND FOLLOW-UP INSTRUCTION WITH DR JOE OR DR LOMBARDO IN 1 WEEK
== END 2020-01-10 16:33 | disposition home or self-care (01) | DRG 309 ==
LOC: ER 11:50 → TELE3 14:34
PROVIDERS: ADMIT Nurse Practitioner Acute Care; ATTEND Nurse Practitioner Acute Care
DX: I48.0 Paroxysmal atrial fibrillation (principal); D68.69 Other thrombophilia; I47.1 Supraventricular tachycardia; I49.5 Sick sinus syndrome; J45.909 Unspecified asthma, uncomplicated; Z79.01 Long term (current) use of anticoagulants; F41.9 Anxiety disorder, unspecified; I10 Essential (primary) hypertension; I69.341 Monoplegia of lower limb following cerebral infarction affecting right dominant side; E11.9 Type 2 diabetes mellitus without complications; F32.9 Major depressive disorder, single episode, unspecified; Z79.02 Long term (current) use of antithrombotics/antiplatelets
CPT/HCPCS: 36415; 70030-TC; 71045; 83735; 84100; 84443; 85025; 93005; 93307; A4663; G0378; J1650

== ENCOUNTER 2020-03-29 12:14 | Emergency (ER) | payer MEDICARE, OTHER ==
[~2020-03-29] VITALS: Ht 162.6 cm; Wt 59.0 kg
[~2020-03-29 12:14] MED LIST changes: -ACID1TAB4 PO; +AMLO5TAB4 PO; -CEFU500T66 PO; -CLON0.5T4 PO; -CLOP75TA15 PO; -DILT-32 PO; -FLUT1BLS INH; -GABA-532 PO; -HYDR25TA86 PO; -MECL-159 PO; -MEGE20TA3 PO; -MELO-105 PO; -METO25TA6 PO; -MONT10TA22 PO; -MULT-594 PO; -PANT40TA2 PO; -SIMV-49 PO
[2020-03-29 12:44] LABS: BASOPHILS # (AUTO) 0.1 K/uL (0.0-8.0); BASOPHILS % (AUTO) 0.9 % (0.0-2.0); EOSINOPHILS # (AUTO) 0.1 K/uL (0.0-0.7); EOSINOPHILS % (AUTO) 0.8 % (0.0-7.0); HEMATOCRIT 40.8 % (31.2-41.9); HEMOGLOBIN 13.5 g/dL (10.9-14.3); LYMPHOCYTES # (AUTO) 1.3 K/uL (20.0-40.0); LYMPHOCYTES % (AUTO) 17.8 % (20.5-51.5); MEAN CORPUSCULAR HEMOGLOBIN 29.6 uug (24.7-32.8); MEAN CORPUSCULAR HGB CONC 33 g/dL (32.3-35.6); MEAN CORPUSCULAR VOLUME 89.7 fL (75.5-95.3); MONOCYTES # (AUTO) 0.7 K/uL (2.0-10.0); MONOCYTES % (AUTO) 9.2 % (0.0-11.0); NEUTROPHILS # (AUTO) 5.4 K/uL (1.8-8.9); NEUTROPHILS % (AUTO) 71.3 % (38.5-71.5); PLATELET COUNT (AUTO) 230 K/uL (179-408); RED BLOOD CELL COUNT(AUTO) 4.55 MIL/uL (3.63-4.92); WHITE BLOOD COUNT (AUTO) 7.6 K/uL (3.8-11.8)
--- NOTE | 2020-03-29 12:52 | NUR ---
Called son, he says he does not have her medication list with him at the moment, but will call back to provide a new updated list.
[2020-03-29 12:54] LABS: CREATININE 1.3 mg/dL (0.6-1.3); POTASSIUM 3.5 mmol/L (3.5-5.1)
--- NOTE | 2020-03-29 13:01 | NUR ---
Accounting/Finance Tutor assumes care: patient is AOX4, calm & breathing easily, denies chest pains at the moment, skin is warm & dry, sinus bradycardia on monitor. Comfort & safety measures initiated.
[2020-03-29 13:06] LABS: BILIRUBIN,DIRECT 0.2 mg/dL (0.0-0.2); BILIRUBIN,TOTAL 0.5 mg/dL (0.2-1.0); TOTAL PROTEIN, SERUM 7.7 g/dL (6.4-8.2)
--- NOTE | 2020-03-29 14:11 | NUR ---
Patient ambulated to bathroom with slow steady gait. Patient is for repeat troponin, to be drawn about 3 hours after the 1st draw per Dr Fierro.
--- NOTE | 2020-03-29 14:52 | NUR ---
Tuna sandwich & apple provided while waiting for hot dinner tray & repeat troponin draw. No acute change in condition seen, no palpitations expressed. Cardia monitor shows sinus bradycardia, rate=high 50's/min and occasional sinus arrthymia, no ectopy seen.
--- NOTE | 2020-03-29 17:21 | NUR ---
Hot dinner tray@bedside.
--- NOTE | 2020-03-29 17:32 | NUR ---
Patient ate 50% of dinner, pending family pick-up, for discharge@this time.
--- NOTE | 2020-03-29 17:48 | NUR ---
Patient's doctor-son was notified by phone & is coming to cherry picker operator the patient. Patient is for discharged to home per Dr Fierro. Written and verbal after care instructions given to patient and her doctor-son. Patient & family verbalized understanding of instructions. Stressed follow up with load blocker & primary doctor or return to ER for worsening s/s. Copies of all the tests' results were given to patient.
== END 2020-03-29 18:19 | disposition home or self-care (01) ==
LOC: ER 12:16
DX: R00.2 Palpitations (principal); R07.9 Chest pain, unspecified; R06.00 Dyspnea, unspecified; R94.31 Abnormal electrocardiogram [ECG] [EKG]; R42 Dizziness and giddiness; Z88.8 Allergy status to other drugs, medicaments and biological substances; I10 Essential (primary) hypertension; K58.9 Irritable bowel syndrome, unspecified; J45.909 Unspecified asthma, uncomplicated; I48.91 Unspecified atrial fibrillation; Z79.01 Long term (current) use of anticoagulants; Z79.899 Other long term (current) drug therapy
CPT/HCPCS: 36415; 70030-TC; 71045; 85025; 85730; 93005; A4663

== ENCOUNTER 2020-04-27 13:17 | Inpatient (IN) | payer MEDICARE, OTHER ==
[~2020-04-27] VITALS: Ht 162.6 cm; Wt 56.7 kg
--- NOTE | 2020-04-27 13:25 | NUR ---
DR [facility].
--- NOTE | 2020-04-27 13:30 | NUR ---
No information about current home medications available, pt unable to provide information.
[2020-04-27 14:20] LABS: BASOPHILS # (AUTO) 0.1 K/uL (0.0-8.0); BASOPHILS % (AUTO) 1.2 % (0.0-2.0); EOSINOPHILS % (AUTO) 0.3 % (0.0-7.0); HEMOGLOBIN 13.3 g/dL (10.9-14.3); LYMPHOCYTES # (AUTO) 1.1 K/uL (20.0-40.0); LYMPHOCYTES % (AUTO) 16.5 % (20.5-51.5); MEAN CORPUSCULAR HGB CONC 33 g/dL (32.3-35.6); MEAN CORPUSCULAR VOLUME 89.2 fL (75.5-95.3); MONOCYTES # (AUTO) 0.6 K/uL (2.0-10.0); MONOCYTES % (AUTO) 9.4 % (0.0-11.0); NEUTROPHILS # (AUTO) 4.8 K/uL (1.8-8.9); NEUTROPHILS % (AUTO) 72.6 % (38.5-71.5); PLATELET COUNT (AUTO) 217 K/uL (179-408); WHITE BLOOD COUNT (AUTO) 6.6 K/uL (3.8-11.8)
[2020-04-27 14:29] LABS: CREATININE 1.2 mg/dL (0.6-1.3)
[2020-04-27 14:40] LABS: BILIRUBIN,DIRECT 0.2 mg/dL (0.0-0.2); BILIRUBIN,TOTAL 0.5 mg/dL (0.2-1.0); TOTAL PROTEIN, SERUM 7.6 g/dL (6.4-8.2)
[2020-04-27] MEDS ORDERED: NITROGLYCERIN 0.4 MG/TAB BOTTLE SL ONE (14:45)
[2020-04-27] MEDS ORDERED: ASPIRIN 81 MG TAB.CHEW PO ONE (15:30)
[2020-04-27] MEDS ORDERED: POTASSIUM CHLORIDE 20 MEQ TAB.PRT.SR PO ONE ×2 (17:00→17:45)
[2020-04-27] MEDS ORDERED: Z GUARD REMEDY PASTE 57 GM TUBE TOP PRN (17:00)
[2020-04-27] MEDS ORDERED: ONDANSETRON 4 MG/2 ML VIAL IV PRN (17:00)
[2020-04-27] MEDS ORDERED: NITROGLYCERIN 0.4 MG/TAB BOTTLE SL PRN (17:00)
[2020-04-27] MEDS ORDERED: MAGNESIUM HYDROXIDE 30 ML LIQUID UDC PO PRN (17:00)
[2020-04-27] MEDS ORDERED: HYDROCODONE/APAP 5-325MG TABLET PO PRN (17:00)
[2020-04-27] MEDS ORDERED: ACETAMINOPHEN 325 MG TABLET PO PRN (17:00)
[2020-04-27] MEDS ORDERED: MIRTAZAPINE 15 MG TABLET PO SCH (18:00)
--- NOTE | 2020-04-27 18:03 | NUR ---
Pt resting in bed, watching TV. Denies chest pain and discomfort.
--- NOTE | 2020-04-27 18:34 | NUR ---
Dinner provided, ate w/ moderate appetite.
--- NOTE | 2020-04-27 18:34 | NUR ---
Dr Green Cold Roller at the bedside for eval.
[2020-04-27] MEDS ORDERED: METOPROLOL TARTRATE 50 MG TABLET PO ONE (19:00)
--- NOTE | 2020-04-27 20:15 | NUR ---
Note dinah in EDM - 04/27/20 at 2019 by DE Patient discharged to home in stable condition. Ambulated with steady gait. Written and verbal after care instructions given. Took all belongings. Patient verbalizes understanding of instructions. Stressed follow up or return to ER for worsening s/s.
--- NOTE | 2020-04-27 21:10 | NUR ---
Report given to Lucian MARAVILLA
--- NOTE | 2020-04-27 21:20 | NUR ---
Pt. admitted to Tele , under care of DAFNE Yoo Belongs List completed and all belongings sent
--- NOTE | 2020-04-27 21:29 | NUR ---
RN spoke to pt's daughter Israel ([phone]); she will be sending a copy of MRI results previously done; Israel is concern about her mother having on and off slurring at home.
[2020-04-27 21:37] VITALS: BP 140/65
[2020-04-27] MEDS: LOSARTAN POTASSIUM 50 MG TABLET PO SCH (22:25)
[2020-04-28] MEDS: LOSARTAN POTASSIUM 50 MG TABLET PO SCH ×4 (00:05→17:14)
[2020-04-28 00:17] VITALS: BP 180/61
--- NOTE | 2020-04-28 01:11 | NUR ---
BP ELEVATED; RENITA BRUNER GAVE PO MED PT REFUSED EARLIER FOR BLOOD PRESSURE(LOSARTAN); WILL OBSERVE.
--- NOTE | 2020-04-28 01:37 | NUR ---
PT NPO FR MN FOR NM LEXISCAN TEST
[2020-04-28 04:46] VITALS: BP 149/84
--- NOTE | 2020-04-28 05:39 | NUR ---
pt rested well in between care; sbp now in the 140s; remains atrial fib 55-75 rate; continue to monitor; continue plan of care.
[2020-04-28 06:45] LABS: BASOPHILS # (AUTO) 0.1 K/uL (0.0-8.0); BASOPHILS % (AUTO) 0.9 % (0.0-2.0); EOSINOPHILS # (AUTO) 0.1 K/uL (0.0-0.7); HEMATOCRIT 38.3 % (31.2-41.9); HEMOGLOBIN 12.8 g/dL (10.9-14.3); LYMPHOCYTES # (AUTO) 1.7 K/uL (20.0-40.0); LYMPHOCYTES % (AUTO) 29.5 % (20.5-51.5); MEAN CORPUSCULAR HEMOGLOBIN 29.4 uug (24.7-32.8); MEAN CORPUSCULAR HGB CONC 33 g/dL (32.3-35.6); MEAN CORPUSCULAR VOLUME 87.9 fL (75.5-95.3); MONOCYTES # (AUTO) 0.6 K/uL (2.0-10.0); MONOCYTES % (AUTO) 10.7 % (0.0-11.0); NEUTROPHILS # (AUTO) 3.3 K/uL (1.8-8.9); NEUTROPHILS % (AUTO) 56.9 % (38.5-71.5); PLATELET COUNT (AUTO) 216 K/uL (179-408); RED BLOOD CELL COUNT(AUTO) 4.36 MIL/uL (3.63-4.92); WHITE BLOOD COUNT (AUTO) 5.9 K/uL (3.8-11.8)
[2020-04-28 07:09] LABS: CREATININE 1.2 mg/dL (0.6-1.3); MAGNESIUM 2.2 mg/dL (1.8-2.4); PHOSPHOROUS 3.3 mg/dL (2.5-4.9)
[2020-04-28] MEDS ORDERED: REGADENOSON 0.4 MG/5 ML PREFILLED SYR IV ONE (07:45)
--- NOTE | 2020-04-28 08:05 | NUR ---
Patient received to care awake, alert. Pt is NPO, except PO medications. awating Lexitest. Pt is calm, breathing is non-labored, no distress noted.
[2020-04-28 08:31] VITALS: BP 155/52
[2020-04-28] MEDS ORDERED: RIVAROXABAN 10 MG TABLET PO SCH (09:00)
[2020-04-28] MEDS ORDERED: AMLODIPINE 5 MG TABLET PO SCH ×2 (09:00)
[2020-04-28] MEDS ORDERED: ASPIRIN 81 MG TAB.CHEW PO ONE (09:00)
[2020-04-28 11:37] VITALS: BP 150/59
[2020-04-28 15:46] VITALS: BP 155/57
[2020-04-28] MEDS: RIVAROXABAN 15 MG TABLET PO SCH (17:16)
[2020-04-28 20:06] VITALS: BP 158/56
[2020-04-28] MEDS: hydrALAZINE HCL 50 MG TABLET PO SCH (20:35)
[2020-04-28] MEDS: MIRTAZAPINE 15 MG TABLET PO SCH (20:36)
[2020-04-29] VITALS (7 sets, daily range): BP systolic 132–177; BP diastolic 33–82
--- NOTE | 2020-04-29 06:43 | NUR ---
END OF SHIFT REPORT Patient rested well in between care; not in acute distress; pt will have MRI of the head with and without uriel today; will endorse to follow up schedule. BP more controlled; continue to monitor; continue plan of care; pt's daughter called and followed up pt; patient asleep at this time; daughter will call again.
[2020-04-29] MEDS: hydrALAZINE HCL 50 MG TABLET PO SCH ×2 (08:09→21:27)
[2020-04-29] MEDS: LOSARTAN POTASSIUM 50 MG TABLET PO SCH ×2 (08:09→16:19)
--- NOTE | 2020-04-29 09:11 | NUR ---
patient is sinus tachy, feels palpitations, dr lopez with order to do stat EKG
[2020-04-29] MEDS ORDERED: LORAZEPAM 1 MG TABLET PO ONE (10:00)
--- NOTE | 2020-04-29 11:35 | NUR ---
patient refused to go to MRI stated she does not feel good.
[2020-04-29] MEDS ORDERED: LORAZEPAM 1 MG TABLET PO PRN (11:45)
[2020-04-29] MEDS ORDERED: IV NORMAL SALINE 500 ML IV ONE (16:30)
[2020-04-29] MEDS: RIVAROXABAN 15 MG TABLET PO SCH (16:32)
[2020-04-29] MEDS: IV NS 1000 ML 1,000 ML IV PRN (18:04)
[2020-04-29 18:30] LABS: BASOPHILS # (AUTO) 0.1 K/uL (0.0-8.0); BASOPHILS % (AUTO) 0.9 % (0.0-2.0); EOSINOPHILS # (AUTO) 0.1 K/uL (0.0-0.7); EOSINOPHILS % (AUTO) 0.8 % (0.0-7.0); HEMOGLOBIN 13.2 g/dL (10.9-14.3); LYMPHOCYTES # (AUTO) 1.3 K/uL (20.0-40.0); LYMPHOCYTES % (AUTO) 19.8 % (20.5-51.5); MEAN CORPUSCULAR HEMOGLOBIN 28.9 uug (24.7-32.8); MEAN CORPUSCULAR HGB CONC 32 g/dL (32.3-35.6); MEAN CORPUSCULAR VOLUME 89.8 fL (75.5-95.3); MONOCYTES # (AUTO) 0.6 K/uL (2.0-10.0); NEUTROPHILS # (AUTO) 4.5 K/uL (1.8-8.9); NEUTROPHILS % (AUTO) 69.5 % (38.5-71.5); PLATELET COUNT (AUTO) 228 K/uL (179-408); RED BLOOD CELL COUNT(AUTO) 4.57 MIL/uL (3.63-4.92); WHITE BLOOD COUNT (AUTO) 6.5 K/uL (3.8-11.8)
[2020-04-29 18:43] LABS: BILIRUBIN,TOTAL 0.3 mg/dL (0.2-1.0); CREATININE 1.1 mg/dL (0.6-1.3); POTASSIUM 3.7 mmol/L (3.5-5.1); TOTAL PROTEIN, SERUM 7.2 g/dL (6.4-8.2)
--- NOTE | 2020-04-29 19:07 | NUR ---
patient stated feels better, another EKG ordered per drop man, no acute distress noted
[2020-04-29] MEDS: MIRTAZAPINE 15 MG TABLET PO SCH (21:19)
[2020-04-30] VITALS: BP 141/51
[2020-04-30 04:03] VITALS: BP 158/55
[2020-04-30] MEDS: IV NS 1000 ML 1,000 ML IV PRN (06:17)
--- NOTE | 2020-04-30 07:20 | NUR ---
Assisted PT to restroom. PT is independent and ambulates with no assist. Assisted PT back to bed, safety measures provided, call light within reach, bed low and lock.
--- NOTE | 2020-04-30 07:20 | NUR ---
Received PT in bed, awake AO X 4. PT stated that they had a good sleep. PT is cooperative and pleasant. No acute distress noted or no shortness of breath.
[2020-04-30 08:00] VITALS: BP 153/52
[2020-04-30] MEDS: LOSARTAN POTASSIUM 50 MG TABLET PO SCH ×2 (08:50→16:44)
[2020-04-30] MEDS: hydrALAZINE HCL 50 MG TABLET PO SCH ×3 (08:51→16:45)
--- NOTE | 2020-04-30 10:30 | NUR ---
Received call from Dr. Baca. Ordered for MRI prior to discharge. Nurse arranged appointment with [facility] MRI and transportation via [facility]. Addendum: 04/30/20 at 1720 by JUDIT RASHID RN Updated PT's son about current status. Son agreed and will pharmacy picking tech PT later tonight.
[2020-04-30 11:00] VITALS: BP 151/55
[2020-04-30] MEDS ORDERED: HYDR50TA68 PO (12:20)
--- NOTE | 2020-04-30 13:22 | NUR ---
PT left via ambulance ([facility]). Administered Ativan PRN per MD's order and requested from PT. Provided report to Silas, EMT. PT left in a gurney
[2020-04-30 16:10] VITALS: BP 137/62
--- NOTE | 2020-04-30 16:30 | NUR ---
PT arrived from MRI appointment. Vital taken and input by GARAGE WORKER. PT in bed, safety measures provided, call light within reach, bed low and lock. Will continue to monitor.
[2020-04-30] MEDS: RIVAROXABAN 15 MG TABLET PO SCH (16:43)
[2020-04-30 16:45] VITALS: BP 137/62
--- NOTE | 2020-04-30 18:56 | NUR ---
PT discharged via private care with son ( Macho Arboledajose) and going home. IV removed. No redness or swelling noted at IV site. PT was brought to the lobby via wheelchair. All belonging brought with patient. No signs of acute distress or shortness of breath noted. PT was thankful and happy.
== END 2020-04-30 19:05 | disposition home health service (06) | DRG 206 ==
LOC: ER 13:17 → TELE3 19:44
PROVIDERS: ADMIT Internal Medicine; ATTEND Student in an Organized Health Care Education/Training Program
DX: M94.0 Chondrocostal junction syndrome [Tietze] (principal); D68.69 Other thrombophilia; I69.351 Hemiplegia and hemiparesis following cerebral infarction affecting right dominant side; J84.9 Interstitial pulmonary disease, unspecified; I47.1 Supraventricular tachycardia; Z74.09 Other reduced mobility; K58.1 Irritable bowel syndrome with constipation; I49.5 Sick sinus syndrome; E78.5 Hyperlipidemia, unspecified; E86.0 Dehydration; F32.9 Major depressive disorder, single episode, unspecified; F41.9 Anxiety disorder, unspecified; I48.0 Paroxysmal atrial fibrillation; I95.1 Orthostatic hypotension; J45.909 Unspecified asthma, uncomplicated; Z79.01 Long term (current) use of anticoagulants; N18.9 Chronic kidney disease, unspecified; I10 Essential (primary) hypertension; K58.9 Irritable bowel syndrome, unspecified; I12.9 Hypertensive chronic kidney disease with stage 1 through stage 4 chronic kidney disease, or unspecified chronic kidney disease; Z79.899 Other long term (current) drug therapy
CPT/HCPCS: 36415; 70030-TC; 70450; 70553; 71045; 78452; 83690; 83735; 84100; 85025; 93005; A4663; A9502; G0378; J2785; J3490; J7030

== ENCOUNTER 2020-05-30 11:03 | Emergency (ER) | payer MEDICARE, OTHER ==
[~2020-05-30] VITALS: Ht 162.6 cm; Wt 56.7 kg
[~2020-05-30 11:03] MED LIST changes: -AMLO5TAB4 PO; +HYDR50TA68 PO
[2020-05-30] MEDS ORDERED: AMLODIPINE 5 MG TABLET PO ONE (11:15)
[2020-05-30 11:44] LABS: CREATININE 1.2 mg/dL (0.6-1.3); POTASSIUM 3.4 mmol/L (3.5-5.1)
[2020-05-30 11:48] LABS: BASOPHILS # (AUTO) 0.1 K/uL (0.0-8.0); BASOPHILS % (AUTO) 0.9 % (0.0-2.0); EOSINOPHILS # (AUTO) 0.2 K/uL (0.0-0.7); EOSINOPHILS % (AUTO) 2.6 % (0.0-7.0); HEMATOCRIT 40.8 % (31.2-41.9); HEMOGLOBIN 13.1 g/dL (10.9-14.3); LYMPHOCYTES # (AUTO) 0.8 K/uL (20.0-40.0); LYMPHOCYTES % (AUTO) 11.8 % (20.5-51.5); MEAN CORPUSCULAR HEMOGLOBIN 28.3 uug (24.7-32.8); MEAN CORPUSCULAR HGB CONC 32 g/dL (32.3-35.6); MEAN CORPUSCULAR VOLUME 88.2 fL (75.5-95.3); MONOCYTES # (AUTO) 0.6 K/uL (2.0-10.0); MONOCYTES % (AUTO) 9.2 % (0.0-11.0); NEUTROPHILS # (AUTO) 5.1 K/uL (1.8-8.9); NEUTROPHILS % (AUTO) 75.5 % (38.5-71.5); PLATELET COUNT (AUTO) 213 K/uL (179-408); RED BLOOD CELL COUNT(AUTO) 4.63 MIL/uL (3.63-4.92); WHITE BLOOD COUNT (AUTO) 6.7 K/uL (3.8-11.8)
--- NOTE | 2020-05-30 12:19 | NUR ---
called pt son sandrita grijalva per pt request to come and sampler pickup the pt. he said will be here within an hour
--- NOTE | 2020-05-30 12:40 | NUR ---
pt ambulated to bathroom with steady gait.
--- NOTE | 2020-05-30 13:16 | NUR ---
pt daughter here to take the pt home. pt daughter mentioned that pt has allergy to aceinhibitors, which was already in file, and she also added that pt cannot tolerate norvasc also due to angioedema. filed norvasc as allegy. Patient discharged to home in stable condition. Written and verbal after care instructions given. Patient and daughter verbalize understanding of instructions. Stressed follow up or return to ER for worsening s/s. pt denies any pain/ swell/ difficulty swallowing/dizziness at the time of d/c.
[2020-05-30 13:19] VITALS: BP 150/49
[2020-05-30] MEDS ORDERED: AMLODIPINE 5 MG TABLET ONE (15:03)
== END 2020-05-30 13:22 | disposition home or self-care (01) ==
LOC: ER 11:03
DX: I16.0 Hypertensive urgency (principal); R91.8 Other nonspecific abnormal finding of lung field; I48.91 Unspecified atrial fibrillation; J45.909 Unspecified asthma, uncomplicated; K58.8 Other irritable bowel syndrome; Z79.01 Long term (current) use of anticoagulants; Z79.899 Other long term (current) drug therapy; F41.9 Anxiety disorder, unspecified
CPT/HCPCS: 36415; 70030-TC; 71045; 85025; 93005; A4663

== ENCOUNTER 2021-03-26 15:29 | Inpatient (IN) | payer MEDICARE, OTHER ==
[~2021-03-26] VITALS: Ht 162.6 cm; Wt 57.2 kg
[~2021-03-26 15:29] MED LIST changes: +MIRT-93 PO; -MIRT15TA7 PO
[2021-03-26] MEDS ORDERED: IV NORMAL SALINE 1000 ML BAG IV ONE (15:45)
[2021-03-26 16:20] LABS: HEMATOCRIT 40.2 % (31.2-41.9); MEAN CORPUSCULAR HEMOGLOBIN 27.1 uug (24.7-32.8); MEAN CORPUSCULAR VOLUME 83.2 fL (75.5-95.3); PLATELET COUNT (AUTO) 264 K/uL (179-408)
[2021-03-26 16:30] LABS: BILIRUBIN,TOTAL 0.2 mg/dL (0.2-1.0); CREATININE 1.3 mg/dL (0.6-1.3); POTASSIUM 3.9 mmol/L (3.5-5.1); TOTAL PROTEIN, SERUM 7.4 g/dL (6.4-8.2)
[2021-03-26] MEDS ORDERED: HYDROCODONE/APAP 5-325MG TABLET PO PRN (19:30)
[2021-03-26] MEDS ORDERED: ONDANSETRON 4 MG/2 ML VIAL IV PRN (19:30)
[2021-03-26] MEDS ORDERED: ACETAMINOPHEN 325 MG TABLET PO PRN (19:30)
[2021-03-26] MEDS ORDERED: ALBUTEROL SULFATE 2.5 MG/ 0.5 ML NEBU NEB PRN (19:30)
--- NOTE | 2021-03-27 03:41 | NUR ---
Pt in bed asleep, no distress noted
[2021-03-27 04:48] LABS: HEMATOCRIT 37.7 % (31.2-41.9); MEAN CORPUSCULAR HEMOGLOBIN 26.9 uug (24.7-32.8); MEAN CORPUSCULAR VOLUME 82.4 fL (75.5-95.3); PLATELET COUNT (AUTO) 225 K/uL (179-408)
[2021-03-27 05:03] LABS: BILIRUBIN,TOTAL 0.4 mg/dL (0.2-1.0); CREATININE 1.2 mg/dL (0.6-1.3); PHOSPHOROUS 3.6 mg/dL (2.5-4.9); POTASSIUM 4.1 mmol/L (3.5-5.1); TOTAL PROTEIN, SERUM 6.7 g/dL (6.4-8.2)
[2021-03-27 05:11] LABS: THYROID STIMULATING HORMONE 1.823 mIU/mL (0.358-3.740)
[2021-03-27] MEDS: hydrALAZINE HCL 50 MG TABLET PO SCH ×3 (06:45→22:35)
--- NOTE | 2021-03-27 07:00 | NUR ---
Received pt 85 yrs female from [facility] AWAKE AND ALERT RESPIRATION[facility] SPOINT AND EASY dineneas chest pain or sob wating for room
[2021-03-27] MEDS ORDERED: hydrALAZINE HCL 25 MG TABLET ONE (07:33)
[2021-03-27] MEDS ORDERED: PANTOPRAZOLE SODIUM 40 MG TABLET.DR PO ONE (07:33)
[2021-03-27] MEDS: PANTOPRAZOLE SODIUM 40 MG TABLET.DR PO SCH (07:56)
--- NOTE | 2021-03-27 08:00 | NUR ---
No discomfort noted at this time breackfest obtend eat with no diffeculty
[2021-03-27] MEDS: LOSARTAN POTASSIUM 50 MG TABLET PO SCH ×2 (09:00→20:29)
--- NOTE | 2021-03-27 09:35 | NUR ---
dineases chest pain wation for telmetery room
--- NOTE | 2021-03-27 10:48 | NUR ---
contenue observe pt for no chest pain at this time
[2021-03-27] MEDS ORDERED: LOSARTAN POTASSIUM 50 MG TABLET PO SCH (11:30)
--- NOTE | 2021-03-27 12:30 | NUR ---
ARTUR WAS optend geeta rolon for telemetery bed
[2021-03-27] MEDS ORDERED: hydrALAZINE HCL 50 MG TABLET PO SCH (13:00)
--- NOTE | 2021-03-27 14:02 | NUR ---
Ecchocardio gram done at bed side tolorated procedure no chest pain
--- NOTE | 2021-03-27 16:15 | NUR ---
resting no pain called Nitin Meredith v left massage for condition up date
[2021-03-27] MEDS ORDERED: RIVAROXABAN 15 MG TABLET PO SCH (17:00)
--- NOTE | 2021-03-27 17:18 | NUR ---
gorge szymanski here see and spook with pt pt ok to be admite in hospitale
[2021-03-27] MEDS ORDERED: RIVAROXABAN 15 MG TABLET ONE (17:37)
[2021-03-27] MEDS ORDERED: MIRTAZAPINE 15 MG TABLET PO SCH (18:00)
--- NOTE | 2021-03-27 18:30 | NUR ---
pt son here spook with DR GUZMAN CONDITION UP date pt plan to fallow up with cardiologe and will d/c home tommow
[2021-03-27] MEDS ORDERED: MIRTAZAPINE 15 MG TABLET ONE (18:36)
--- NOTE | 2021-03-27 19:16 | NUR ---
HAND OFF TO SETH Castaneda LVN
[2021-03-27 20:18] VITALS: BP 146/56
[2021-03-27] MEDS ORDERED: HYDR100T27 PO (20:24)
--- NOTE | 2021-03-27 20:30 | NUR ---
RECEIVED PATIENT FROM ER VIA GURNEY. PATIENT IS A/O X3. VERY PLEASANT WHEN APPROACHED. DENIES ANY CHEST PAIN OR DISCOMFORT. NO RESP. DISTRESS NOTED. PLACED ON TELE ORDERED, SR. VS WNL. HEPLOCK INTACT AND PATENT, NOTED TO LEFT WRIST #20 GAUGE. ORIENTED PATIENT TO ROOM AND CALL LIGHT. CALL LIGHT IN REACH. BED ALARM ON. ALL NEEDS ATTENDED, WILL CONTINUE TO MONITOR AND ASSESS.
[2021-03-28 00:05] VITALS: BP 165/43
[2021-03-28 04:05] VITALS: BP 162/49
[2021-03-28] MEDS: hydrALAZINE HCL 50 MG TABLET PO SCH (05:36)
[2021-03-28] MEDS: PANTOPRAZOLE SODIUM 40 MG TABLET.DR PO SCH (06:21)
[2021-03-28] MEDS ORDERED: ALBUTEROL SULFATE 2.5 MG/3 ML NEBU NEB PRN (07:00)
--- NOTE | 2021-03-28 08:00 | NUR ---
awake alert/oriented x 3n denies of pain, tele SR 78, explained plan fo care, pt states she thinks she's going home today, informed MD has not made rounds yet, safety measures maintained, call light within reach, bed alarm on
[2021-03-28] MEDS: LOSARTAN POTASSIUM 50 MG TABLET PO SCH (08:43)
[2021-03-28] MEDS ORDERED: Medication Not On Formulary EA (Pramipexole Di-Hcl (Pramipexole Dihydrochloride) 0.125 M PO SCH (09:00)
[2021-03-28] MEDS ORDERED: RIVAROXABAN 10 MG TABLET PO SCH (09:00)
[2021-03-28] MEDS ORDERED: PRAMIPEXOLE 0.25 MG TABLET PO SCH (09:00)
[2021-03-28] MEDS ORDERED: DILTIAZEM HCL CD 120 MG CAP.SR.24H PO SCH (09:30)
[2021-03-28 11:59] VITALS: BP 155/52
--- NOTE | 2021-03-28 12:00 | NUR ---
ambulated in room and bathroom with assist up to the door- tolerated, denies of dizziness
[2021-03-28 12:20] VITALS: BP 146/48
--- NOTE | 2021-03-28 12:30 | NUR ---
son called and asking for d/c time- will call him once with d/c and d/c instructions done
[2021-03-28] MEDS ORDERED: DILT120C87 PO (12:55)
--- NOTE | 2021-03-28 13:00 | NUR ---
pt is being d/c today- seen by Dr Hardin earlier
--- NOTE | 2021-03-28 14:20 | NUR ---
discharge instructions given to pt-verbalized understanding, informed son and pt of prescription at preferred pharmacy, escorted to car per w/c under son's care- all belongings with her
[2021-03-28] MEDS ORDERED: MIRTAZAPINE 15 MG TABLET PO SCH (21:00)
== END 2021-03-28 14:20 | disposition home health service (06) | DRG 206 ==
LOC: ER 15:30 → EDBD 18:00 → TRANSITION 18:00 → TELE3 03-27 19:57
PROVIDERS: ADMIT Internal Medicine; ATTEND Internal Medicine
DX: M94.0 Chondrocostal junction syndrome [Tietze] (principal); D68.59 Other primary thrombophilia; I47.1 Supraventricular tachycardia; J84.9 Interstitial pulmonary disease, unspecified; I48.0 Paroxysmal atrial fibrillation; E78.5 Hyperlipidemia, unspecified; F32.A Depression, unspecified; F41.9 Anxiety disorder, unspecified; Z20.822 Contact with and (suspected) exposure to COVID-19; K59.00 Constipation, unspecified; J45.909 Unspecified asthma, uncomplicated; G89.29 Other chronic pain; I10 Essential (primary) hypertension; Z79.01 Long term (current) use of anticoagulants; Z86.73 Personal history of transient ischemic attack (TIA), and cerebral infarction without residual deficits; R42 Dizziness and giddiness; K58.9 Irritable bowel syndrome, unspecified; Z74.09 Other reduced mobility; I49.5 Sick sinus syndrome; D32.0 Benign neoplasm of cerebral meninges; R93.1 Abnormal findings on diagnostic imaging of heart and coronary circulation
CPT/HCPCS: 36415; 70030-TC; 71045; 83735; 84100; 84443; 85025; 93005; 93307; A4663; G0378; J7030

== ENCOUNTER 2021-07-26 16:32 | Emergency (ER) | payer MEDICARE, OTHER ==
[~2021-07-26] VITALS: Ht 165.1 cm; Wt 62.6 kg
[~2021-07-26 16:32] MED LIST changes: +DILT120C87 PO; +HYDR100T27 PO; -HYDR50TA68 PO
[2021-07-26 17:29] LABS: HEMATOCRIT 35.7 % (31.2-41.9); MEAN CORPUSCULAR HEMOGLOBIN 28.4 uug (24.7-32.8); MEAN CORPUSCULAR VOLUME 85.1 fL (75.5-95.3); PLATELET COUNT (AUTO) 238 K/uL (179-408)
[2021-07-26 17:37] LABS: CARBON DIOXIDE 24 mmol/L (21-32); CHLORIDE 107 mmol/L (98-107); CREATININE 1.3 mg/dL (0.6-1.3); GLUCOSE 95 mg/dL (74-106); POTASSIUM 4.1 mmol/L (3.5-5.1); UREA NITROGEN, BLOOD 26 mg/dL (7-18)
[2021-07-26 17:50] LABS: ALANINE AMINOTRANSFERASE 22 U/L (14-59); ALKALINE PHOSPHATASE 77 U/L (50-136); ASPARTATE AMINOTRANSFERASE 21 U/L (15-37); BILIRUBIN,DIRECT 0.1 mg/dL (0.0-0.2); BILIRUBIN,TOTAL 0.3 mg/dL (0.2-1.0); TOTAL PROTEIN, SERUM 6.9 g/dL (6.4-8.2)
--- NOTE | 2021-07-26 19:33 | NUR ---
pt a/o denies pain. pt speaks Farci and some Yakut.
--- NOTE | 2021-07-26 20:30 | NUR ---
pt had steady gait ambualted well to bathroom.
--- NOTE | 2021-07-26 20:44 | NUR ---
pts son speaking with Dr. Rodríguez. pt to be discharged home.
--- NOTE | 2021-07-26 21:00 | NUR ---
Patient discharged to home in stable condition. Written and verbal after care instructions given. Patient verbalizes understanding of instructions. Stressed follow up or return to ER for worsening s/s. pt ambulated without assist, denies pain. pt accompanied by her son.
[2021-07-26 21:08] VITALS: BP 160/57
== END 2021-07-26 21:09 | disposition home or self-care (01) ==
LOC: ER 16:32
DX: R06.00 Dyspnea, unspecified (principal); Z20.822 Contact with and (suspected) exposure to COVID-19; I48.91 Unspecified atrial fibrillation; Z79.01 Long term (current) use of anticoagulants; K58.9 Irritable bowel syndrome, unspecified; I10 Essential (primary) hypertension; R42 Dizziness and giddiness; Z88.8 Allergy status to other drugs, medicaments and biological substances; F32.A Depression, unspecified; Z79.899 Other long term (current) drug therapy
CPT/HCPCS: 36415; 71045; 84484; 85025; 85730; 93005; A4663

== ENCOUNTER 2022-04-18 15:04 | Inpatient (IN) | payer MEDICARE, OTHER ==
[~2022-04-18] VITALS: Ht 137.2 cm; Wt 59.0 kg
[2022-04-18] MEDS ORDERED: ACETAMINOPHEN ES 500 MG TABLET PO ONE (16:30)
[2022-04-18] MEDS ORDERED: IV NORMAL SALINE 500 ML BAG IV ONE (16:30)
[2022-04-18 17:05] LABS: HEMATOCRIT 38.2 % (31.2-41.9); MEAN CORPUSCULAR HEMOGLOBIN 26.4 uug (24.7-32.8); MEAN CORPUSCULAR VOLUME 82.6 fL (75.5-95.3); PLATELET COUNT (AUTO) 180 K/uL (179-408)
[2022-04-18 17:14] LABS: CARBON DIOXIDE 26 mmol/L (21-32); CHLORIDE 99 mmol/L (98-107); CREATININE 1.2 mg/dL (0.6-1.3); GLUCOSE 118 mg/dL (74-106); POTASSIUM 3.8 mmol/L (3.5-5.1); UREA NITROGEN, BLOOD 21 mg/dL (7-18)
[2022-04-18 17:27] LABS: ALANINE AMINOTRANSFERASE 21 U/L (14-59); ALKALINE PHOSPHATASE 100 U/L (50-136); ASPARTATE AMINOTRANSFERASE 24 U/L (15-37); BILIRUBIN,DIRECT 0.2 mg/dL (0.0-0.2); BILIRUBIN,TOTAL 0.4 mg/dL (0.2-1.0); LIPASE 120 U/L (73-393); TOTAL PROTEIN, SERUM 7.1 g/dL (6.4-8.2)
[2022-04-18] MEDS ORDERED: SWABABLE VALVE TRANSFER SET EA MC ONE (18:15)
[2022-04-18] MEDS ORDERED: IV NORMAL SALINE 0 ML IV ONE (18:15)
[2022-04-18] MEDS ORDERED: IOHEXOL 300MG/ML 100 ML INFUS..BTL ONE (18:15)
[2022-04-18] MEDS ORDERED: ACETAMINOPHEN ES 500 MG TABLET ONE (18:49)
[2022-04-18] MEDS ORDERED: AZITHROMYCIN 250 MG TABLET PO ONE (21:15)
[2022-04-18] MEDS ORDERED: CEFTRIAXONE 1 G in IV DEXTROSE 5% 50 ML IV ONE (21:15)
[2022-04-18 21:49] LABS: ABG BASE EXCESS -4.6 mmol/L; ABG HCO3 19.3 mmol/L; ABG PCO2 31.6 mmHg (35.0-45.0); ABG PH 7.403 (7.350-7.450); ABG PO2 72.3 mmHg (75.0-100.0); ABG SITE RIGHT RADIAL; ABG TOTAL HEMOGLOBIN 11.8 G/dL (12.0-16.0); COHb 0.5 % (0.5-1.5); MetHb 0.3 % (0.0-1.5); O2Hb 93.9 % (94.0-97.0); VENT MODE room air
[2022-04-18] MEDS ORDERED: CEFTRIAXONE /D5W 50ML IVPB **ER PYXIS IV ONE (22:00)
[2022-04-19] MEDS ORDERED: hydrALAZINE HCL 20 MG/1 ML VIAL IV PRN (03:00)
[2022-04-19] MEDS ORDERED: ONDANSETRON 4 MG/2 ML VIAL IV PRN (03:00)
[2022-04-19] MEDS ORDERED: MORPHINE SULFATE 2 MG/1 ML DISP.SYRIN IVP PRN (03:00)
[2022-04-19] MEDS ORDERED: IV NS 1000 ML 1,000 ML IV SCH (03:00)
[2022-04-19] MEDS ORDERED: ACETAMINOPHEN 325 MG TABLET PO PRN (03:00)
[2022-04-19] MEDS ORDERED: ALBUTEROL SULFATE 8 GM HFA.AER.AD IH PRN (03:00)
[2022-04-19] MEDS ORDERED: hydrALAZINE HCL 50 MG TABLET ONE (07:37)
[2022-04-19] MEDS: hydrALAZINE HCL 50 MG TABLET PO SCH ×2 (07:44→13:22)
[2022-04-19] MEDS ORDERED: DILTIAZEM HCL CD 120 MG CAP.SR.24H PO SCH (09:00)
[2022-04-19] MEDS ORDERED: PRAMIPEXOLE DI HCL PO SCH (09:00)
[2022-04-19] MEDS ORDERED: RIVAROXABAN 10 MG TABLET PO SCH (09:00)
[2022-04-19] MEDS ORDERED: DOCUSATE SODIUM 100 MG CAPSULE PO SCH (09:00)
[2022-04-19] MEDS ORDERED: FLUTICASONE/VILANTEROL 1 EACH BLST.W.DEV INH SCH ×2 (09:00→09:49)
[2022-04-19] MEDS ORDERED: [UNRECOGNIZED DRUG - OTHER] PO SCH (09:00)
[2022-04-19] MEDS ORDERED: LOSARTAN POTASSIUM 50 MG TABLET PO SCH (09:00)
[2022-04-19] MEDS ORDERED: HEPARIN SODIUM,PORCINE 5,000 UNITS/ML VIAL SQ SCH (09:00)
[2022-04-19] MEDS ORDERED: DILTIAZEM HCL CD 120 MG CAP.SR.24H PO ONE (09:07)
[2022-04-19] MEDS ORDERED: DOCUSATE SODIUM 100 MG CAPSULE PO ONE (09:07)
[2022-04-19 10:00] VITALS: BP 177/58
[2022-04-19 12:00] VITALS: BP 169/51
[2022-04-19] MEDS ORDERED: MONT10TA33 PO (12:44)
[2022-04-19 16:00] VITALS: BP 174/54
[2022-04-19] MEDS ORDERED: RIVAROXABAN 15 MG TABLET PO SCH ×2 (18:00)
[2022-04-19] MEDS ORDERED: MIRTAZAPINE 15 MG TABLET PO PRN (18:00)
[2022-04-19] MEDS ORDERED: CEFTRIAXONE 1 G in IV DEXTROSE 5% 50 ML IV SCH (21:00)
[2022-04-19] MEDS ORDERED: AZITHROMYCIN IV 500 MG in IV DEXTROSE 5% 250 ML IV SCH (22:00)
== END 2022-04-19 16:50 | disposition left against medical advice (07) | DRG 177 ==
LOC: ER 15:27 → MEDSURG3 04-19 09:45 → TELE3 04-19 10:20
DX: U07.1 COVID-19 (principal); J12.82 Pneumonia due to coronavirus disease 2019; D68.69 Other thrombophilia; Z86.011 Personal history of benign neoplasm of the brain; I48.0 Paroxysmal atrial fibrillation; I25.10 Atherosclerotic heart disease of native coronary artery without angina pectoris; I10 Essential (primary) hypertension; J45.909 Unspecified asthma, uncomplicated; G89.29 Other chronic pain; K58.9 Irritable bowel syndrome, unspecified; Z79.01 Long term (current) use of anticoagulants; F32.A Depression, unspecified; F41.9 Anxiety disorder, unspecified
CPT/HCPCS: 36600; 71045; 83605; 83615; 83690; 84484; 85025; 85730; 86140; 87040; 87400; 93005; A4663; A9150; G0378; J0456; J0696; J3535; J7040; J7050; Q0144; Q9967

== ENCOUNTER 2023-06-20 20:18 | Inpatient (IN) | payer MEDICARE, OTHER ==
[~2023-06-20] VITALS: Ht 165.1 cm; Wt 52.2 kg
[~2023-06-20 20:18] MED LIST changes: +MONT10TA33 PO; -PRAM0.129 PO
[2023-06-20] MEDS ORDERED: NITROGLYCERIN 0.4 MG/TAB BOTTLE SL ONE ×2 (20:59→21:00)
[2023-06-20] MEDS ORDERED: MAG HYDROX/AL HYDROX/SIMETH 30 ML LIQUID UDC ONE (20:59)
[2023-06-20] MEDS ORDERED: NITROGLYCERIN OINT 1 GM PACKET TP ONE ×2 (20:59→21:00)
[2023-06-20] MEDS ORDERED: ASPIRIN 325 MG TABLET ONE (20:59)
[2023-06-20] MEDS ORDERED: ASPIRIN 325 MG TABLET PO ONE (21:00)
[2023-06-20] MEDS ORDERED: MAG HYDROX/AL HYDROX/SIMETH 30 ML LIQUID UDC PO ONE (21:00)
[2023-06-20 21:12] LABS: BASOPHILS # (AUTO) 0.1 K/UL (0.0-0.2); BASOPHILS % (AUTO) 1.2 % (0.0-2.0); DIFFERENTIAL COMMENT 0; EOSINOPHILS # (AUTO) 0.1 K/uL (0.0-0.7); EOSINOPHILS % (AUTO) 2.3 % (0.0-7.0); HEMATOCRIT 32.4 % (31.2-41.9); HEMOGLOBIN 10.6 g/dL (10.9-14.3); LYMPHOCYTES # (AUTO) 1.5 K/uL (0.8-4.8); LYMPHOCYTES % (AUTO) 26.3 % (20.5-51.5); MEAN CORPUSCULAR HEMOGLOBIN 26.7 uug (24.7-32.8); MEAN CORPUSCULAR HGB CONC 33 g/dL (32.3-35.6); MEAN CORPUSCULAR VOLUME 81.3 fL (75.5-95.3); MONOCYTES # (AUTO) 0.5 K/uL (0.1-1.30); MONOCYTES % (AUTO) 9.9 % (0.0-11.0); NEUTROPHILS # (AUTO) 3.4 K/uL (1.8-8.9); NEUTROPHILS % (AUTO) 60.3 % (38.5-71.5); PLATELET COUNT (AUTO) 218 K/uL (179-408); RED BLOOD CELL COUNT(AUTO) 3.99 MIL/uL (3.63-4.92); RED CELL DISTRIBUTION WIDTH 15.8 % (12.3-17.7); WHITE BLOOD COUNT (AUTO) 5.6 K/uL (3.8-11.8)
[2023-06-20 21:28] LABS: ALANINE AMINOTRANSFERASE 23 U/L (14-59); ALBUMIN 3.3 g/dL (3.4-5.0); ALKALINE PHOSPHATASE 79 U/L (50-136); ASPARTATE AMINOTRANSFERASE 14 U/L (15-37); BILIRUBIN,DIRECT 0.1 mg/dL (0.0-0.2); BILIRUBIN,TOTAL 0.3 mg/dL (0.2-1.0); CALCIUM 9.1 mg/dL (8.5-10.1); CARBON DIOXIDE 24 mmol/L (21-32); CHLORIDE 108 mmol/L (98-107); CREATININE 1.4 mg/dL (0.6-1.3); GLUCOSE 199 mg/dL (74-106); NT-PRO BNP 268 pg/mL (0-125); POTASSIUM 4.1 mmol/L (3.5-5.1); SODIUM SERUM 140 mmol/L (136-145); TOTAL PROTEIN, SERUM 7.3 g/dL (6.4-8.2); UREA NITROGEN, BLOOD 31 mg/dL (7-18)
[2023-06-20] MEDS ORDERED: RIVA15TA2 PO (22:05)
[2023-06-20] MEDS ORDERED: METO-356 PO (22:05)
[2023-06-20] MEDS ORDERED: HYDR100T27 PO (22:05)
[2023-06-20] MEDS ORDERED: LOSA50TA39 PO (22:08)
[2023-06-20] MEDS ORDERED: REMEDY ESSENTIAL ZINC PASTE 113 GM TP PRN (23:45)
[2023-06-20] MEDS ORDERED: ACETAMINOPHEN 325 MG TABLET PO PRN (23:45)
[2023-06-20] MEDS ORDERED: MAGNESIUM HYDROXIDE 30 ML LIQUID UDC PO PRN (23:45)
[2023-06-20] MEDS ORDERED: ONDANSETRON 4 MG/2 ML VIAL IV PRN (23:45)
[2023-06-21 00:15] VITALS: BP 100/44; TEMP 98.6; O2SAT 99
[2023-06-21 04:00] VITALS: BP 138/36; TEMP 97.9; O2SAT 100
[2023-06-21 07:41] LABS: BASOPHILS # (AUTO) 0.1 K/UL (0.0-0.2); EOSINOPHILS # (AUTO) 0.2 K/uL (0.0-0.7); EOSINOPHILS % (AUTO) 3.1 % (0.0-7.0); HEMATOCRIT 32.1 % (31.2-41.9); HEMOGLOBIN 10.3 g/dL (10.9-14.3); LYMPHOCYTES # (AUTO) 1.6 K/uL (0.8-4.8); LYMPHOCYTES % (AUTO) 30.7 % (20.5-51.5); MEAN CORPUSCULAR HGB CONC 32 g/dL (32.3-35.6); MONOCYTES # (AUTO) 0.6 K/uL (0.1-1.30); MONOCYTES % (AUTO) 10.7 % (0.0-11.0); NEUTROPHILS # (AUTO) 2.8 K/uL (1.8-8.9); NEUTROPHILS % (AUTO) 54.5 % (38.5-71.5); PLATELET COUNT (AUTO) 216 K/uL (179-408); RED BLOOD CELL COUNT(AUTO) 3.96 MIL/uL (3.63-4.92); RED CELL DISTRIBUTION WIDTH 15.2 % (12.3-17.7); WHITE BLOOD COUNT (AUTO) 5.2 K/uL (3.8-11.8)
[2023-06-21 07:44] LABS: DIFFERENTIAL COMMENT 1
[2023-06-21 08:10] LABS: ALANINE AMINOTRANSFERASE 21 U/L (14-59); ALBUMIN 3.2 g/dL (3.4-5.0); ALKALINE PHOSPHATASE 70 U/L (50-136); ASPARTATE AMINOTRANSFERASE 14 U/L (15-37); BILIRUBIN,TOTAL 0.3 mg/dL (0.2-1.0); CALCIUM 8.9 mg/dL (8.5-10.1); CARBON DIOXIDE 23 mmol/L (21-32); CHLORIDE 108 mmol/L (98-107); CREATININE 1.3 mg/dL (0.6-1.3); GLUCOSE 92 mg/dL (74-106); MAGNESIUM 2.5 mg/dL (1.8-2.4); PHOSPHOROUS 3.4 mg/dL (2.5-4.9); POTASSIUM 4.2 mmol/L (3.5-5.1); SODIUM SERUM 142 mmol/L (136-145); UREA NITROGEN, BLOOD 28 mg/dL (7-18)
[2023-06-21] MEDS: hydrALAZINE HCL 50 MG TABLET PO SCH ×3 (09:00→16:26)
[2023-06-21] MEDS ORDERED: LOSARTAN POTASSIUM 50 MG TABLET PO SCH (09:00)
[2023-06-21] MEDS ORDERED: METOPROLOL SUCCINATE XL 25 MG TAB.SR.24H PO SCH (09:00)
[2023-06-21 11:38] VITALS: BP 135/39; TEMP 98.3; O2SAT 99
[2023-06-21 16:00] VITALS: BP 115/38; TEMP 98.7; O2SAT 97
[2023-06-21] MEDS ORDERED: RIVAROXABAN 15 MG TABLET PO SCH (18:00)
[2023-06-21 20:00] VITALS: BP 135/45; TEMP 98.7; O2SAT 97
[2023-06-22] VITALS: BP 145/43; TEMP 98.5; O2SAT 98
[2023-06-22 04:00] VITALS: BP 142/40; TEMP 98.6; O2SAT 96
[2023-06-22 08:00] VITALS: BP 146/38; TEMP 99.1; O2SAT 94
[2023-06-22 08:46] LABS: ALANINE AMINOTRANSFERASE 15 U/L (14-59); ALBUMIN 2.9 g/dL (3.4-5.0); ALKALINE PHOSPHATASE 61 U/L (50-136); ASPARTATE AMINOTRANSFERASE 10 U/L (15-37); BILIRUBIN,TOTAL 0.3 mg/dL (0.2-1.0); CARBON DIOXIDE 20 mmol/L (21-32); CHLORIDE 108 mmol/L (98-107); CHOLESTEROL 165 mg/dL (<200); CREATININE 1.4 mg/dL (0.6-1.3); GLUCOSE 91 mg/dL (74-106); HDL CHOLESTEROL 41 mg/dL (40-60); MAGNESIUM 2.5 mg/dL (1.8-2.4); PHOSPHOROUS 3.9 mg/dL (2.5-4.9); POTASSIUM 4.5 mmol/L (3.5-5.1); SODIUM SERUM 140 mmol/L (136-145); TOTAL PROTEIN, SERUM 6.5 g/dL (6.4-8.2); TRIGLYCERIDES 92 MG/DL (30-150); UREA NITROGEN, BLOOD 34 mg/dL (7-18)
[2023-06-22 08:52] LABS: IRON, SERUM 29 ug/dL (50-175)
[2023-06-22 09:03] LABS: BASOPHILS # (AUTO) 0.1 K/UL (0.0-0.2); BASOPHILS % (AUTO) 1.3 % (0.0-2.0); EOSINOPHILS # (AUTO) 0.2 K/uL (0.0-0.7); EOSINOPHILS % (AUTO) 3.2 % (0.0-7.0); HEMATOCRIT 30.2 % (31.2-41.9); HEMOGLOBIN 9.7 g/dL (10.9-14.3); LYMPHOCYTES # (AUTO) 1.4 K/uL (0.8-4.8); LYMPHOCYTES % (AUTO) 27.8 % (20.5-51.5); MEAN CORPUSCULAR HEMOGLOBIN 26.2 uug (24.7-32.8); MEAN CORPUSCULAR HGB CONC 32 g/dL (32.3-35.6); MONOCYTES # (AUTO) 0.5 K/uL (0.1-1.30); MONOCYTES % (AUTO) 9.2 % (0.0-11.0); NEUTROPHILS % (AUTO) 58.5 % (38.5-71.5); PLATELET COUNT (AUTO) 206 K/uL (179-408); RED BLOOD CELL COUNT(AUTO) 3.69 MIL/uL (3.63-4.92); RED CELL DISTRIBUTION WIDTH 15.5 % (12.3-17.7); WHITE BLOOD COUNT (AUTO) 5.1 K/uL (3.8-11.8)
[2023-06-22] MEDS: hydrALAZINE HCL 50 MG TABLET PO SCH ×2 (09:08→13:00)
[2023-06-22 09:12] LABS: DIFFERENTIAL COMMENT 1
[2023-06-22 10:28] LABS: CALCIUM 8.6 mg/dL (8.5-10.1)
[2023-06-22 11:03] LABS: THYROID STIMULATING HORMONE 0.639 mIU/mL (0.358-3.740)
[2023-06-22 11:31] VITALS: BP 133/43; TEMP 97.2; O2SAT 98
[2023-06-22] MEDS ORDERED: OMEG-49 PO (16:09)
[2023-06-22] MEDS ORDERED: FERR324T17 PO (16:09)
[2023-06-22 16:17] VITALS: BP 148/46; TEMP 97.7; O2SAT 98
== END 2023-06-22 17:20 | disposition home health service (06) | DRG 391 ==
LOC: ER 20:20 → TELE3 22:29 → MEDSURG3 06-22 09:30
PROVIDERS: ADMIT Internal Medicine; ATTEND Internal Medicine
DX: K21.9 Gastro-esophageal reflux disease without esophagitis (principal); N17.0 Acute kidney failure with tubular necrosis; J84.9 Interstitial pulmonary disease, unspecified; D68.59 Other primary thrombophilia; F01.54 Vascular dementia, unspecified severity, with anxiety; F01.53 Vascular dementia, unspecified severity, with mood disturbance; K29.70 Gastritis, unspecified, without bleeding; I48.0 Paroxysmal atrial fibrillation; Z79.01 Long term (current) use of anticoagulants; K58.9 Irritable bowel syndrome, unspecified; D50.9 Iron deficiency anemia, unspecified; I12.9 Hypertensive chronic kidney disease with stage 1 through stage 4 chronic kidney disease, or unspecified chronic kidney disease; N18.2 Chronic kidney disease, stage 2 (mild); E78.5 Hyperlipidemia, unspecified; Z74.09 Other reduced mobility; J30.9 Allergic rhinitis, unspecified; I69.319 Unspecified symptoms and signs involving cognitive functions following cerebral infarction; Z86.011 Personal history of benign neoplasm of the brain; Z90.49 Acquired absence of other specified parts of digestive tract
CPT/HCPCS: 36415; 71045; 83550; 83735; 84100; 84443; 84484; 85025; 93005; 93307; G0378